=== PATIENT | male | born 1955 | race Hispanic/Latino ===

== ENCOUNTER 2020-12-01 18:51 | Emergency (ER) | payer SELFPAY | END 2020-12-02 01:06 | LOC: ED 18:51 | DX: Z00.00 Encounter for general adult medical examination without abnormal findings (principal); Z53.21 Procedure and treatment not carried out due to patient leaving prior to being seen by health care provider ==

== ENCOUNTER 2020-12-04 10:55 | Inpatient (IN) | payer MEDICARE ==
[~2020-12-04 10:55] MED LIST: ACETAMINOPHEN 500 MG TAB PO SCH; LACTATED RINGERS 1,000 ML IV SCH; MIDAZOLAM 2 MG/2 ML INJ IV NR; SODIUM CHLORIDE 0.9% 1000 ML 1,000 ML IV SCH; ceFAZolin/Water 2 GM/20 ML 2 GM/20 ML SYRINGE IV NR
[2020-12-04 11:49] LABS: Basophils % (Auto) 0.2 % (0.0-1.8); Eosinophils # (Auto) 0.1 K/mm3 (0.0-0.4); Hemoglobin 9.9 gm/dl (11.8-15.2); Lymphocytes # (Auto) 1.5 K/mm3 (1.2-5.4); Lymphocytes % (Auto) 16.8 % (13.4-35.0); Mean Corpuscular HGB Conc 33 % (32-34); Mean Corpuscular Volume 83 fl (84-94); Platelet Count 182 K/mm3 (140-440); Red Blood Count 3.61 M/mm3 (3.65-5.03)
[2020-12-04 12:04] LABS: INR 1.15 (0.87-1.13)
[2020-12-04 12:05] LABS: Partial Thromboplastin Time 26.6 Sec. (24.2-36.6)
[2020-12-04 12:11] LABS: Blood Urea Nitrogen 9 mg/dL (9-20); Calcium 8.5 mg/dL (8.4-10.2); Hemolysis Index 22
[2020-12-04 12:12] LABS: BUN/Creatinine Ratio 23
[2020-12-04] MEDS: GABAPENTIN 300 MG CAP PO NR ×2 (12:15→22:29)
[2020-12-04] MEDS ORDERED: HYDROmorphone 1 MG/1 ML INJ IV ONE (12:26)
[2020-12-04] MEDS ORDERED: HYDROmorphone 1 MG/1 ML INJ ONE ×2 (12:35→15:11)
[2020-12-04] MEDS: MIDAZOLAM 2 MG/2 ML INJ IV NR ×2 (12:42→13:18)
--- NOTE | 2020-12-04 13:01 | Anesthesia Consultation ---
Anesthesia Consult and Med Hx Date of service: 12/04/20 - Airway Anesthetic Teeth Evaluation: Good ROM Head & Neck: Adequate Mental/Hyoid Distance: Adequate Mallampati Class: Class III Intubation Access Assessment: Possibly Difficult - Pulmonary Exam CTA: Yes - Cardiac Exam Cardiac Exam: RRR - Pre-Operative Health Status ASA Pre-Surgery Classification: ASA4 Proposed Anesthetic Plan: General - Pulmonary Hx Smoking: Yes (quit 25yrs but recent restarted <1 pack per week) Hx Respiratory Symptoms: No - Cardiovascular System Hx Hypertension: Yes (prior hx; controlled now no meds) Hx Coronary Artery Disease: Yes (EF 45% on recent TTE) Hx Heart Attack/AMI: Yes (multiple MIs s/p 4v CABG 15yrs ago; most recent OK 09/11/20) Hx Percutaneous Transluminal Coronary Angioplasty (PTCA): Yes (last dose brilinta 11/30/20 PM) Hx Cardia Arrhythmia: No Hx Valvular Heart Disease: No (LV thrombus; last dose coumadin 11/30/20 PM) Hx Peripheral Vascular Disease: Yes (PAD s/p R BKA) - Central Nervous System CVA: No Hx Psychiatric Problems: No - Endocrine Hx Renal Disease: No Hx Liver Disease: No Hx Insulin Dependent Diabetes: No Hx Non-Insulin Dependent Diabetes: No Hx Thyroid Disease: No - Hematic Hx Anemia: Yes - Other Systems Hx Obesity: No - Additional Comments Anesthesia Medical History Comments: No hx anesthetic complications.
[2020-12-04] MEDS ORDERED: ONDANSETRON 4 MG/2 ML INJ IV PRN (13:02)
[2020-12-04] MEDS ORDERED: oxyCODONE /ACETAMINOPHEN 5-325MG TAB PO PRN (13:02)
--- NOTE | 2020-12-04 13:02 | Anesthesia Day of Surgery ---
Anesthesia Day of Surgery - Day of Surgery Patient Examined: Yes Patient H&P Reviewed: Yes Patient is NPO: Yes
[2020-12-04] MEDS ORDERED: LIDOCAINE MPF (2%) 20 MG/1 ML VIAL 5 ML ONE (15:10)
[2020-12-04] MEDS ORDERED: ONDANSETRON 4 MG/2 ML INJ ONE (15:10)
[2020-12-04] MEDS ORDERED: propofoL 200 MG/20 ML VIAL IV ONE (15:11)
[2020-12-04] MEDS ORDERED: ACETAMINOPHEN 325 MG TAB PO PRN (17:19)
--- NOTE | 2020-12-04 17:19 | Operative Report ---
Operative Report Operative Report: Date of Procedure: 12/04/2020 Pre-operative Diagnosis: Nonhealing Right Below-Knee Amputation Post-operative Diagnosis: Same Procedure(s): 1. Excisional Debridement of Skin, Muscle, Bone, and Soft Tissue of Right Below-Knee Amputation (Wound Measured 13 x 10 x 6 cm) 2. Placement of 4 x 4 cm Bio DFence Sentry Placental Tissue Membrane (x2) 3. Wound VAC Placement (Wound Measures 5 x 6 x 2 cm) Surgeon: Augustine Banuelos M.D. Lead Security Officer: None Anesthesia: General Endotracheal Anesthesia EBL: 75 mL Counts: Correct Complications: None Condition: Stable Findings: Remaining tissue was healthy and viable with bleeding edges. All remaining muscle reactive to cautery stimulation. The tibia was exposed however it was covered with the tissue membrane. Specimen: Skin, muscle, bone, and soft tissue were discarded from right below- knee amputation were discarded Indication: The patient is a 65-year-old male with a history of peripheral vascular disease who had previous endovascular intervention to salvage his right lower extremity however this failed requiring a right below-knee amputation. He subsequently developed ischemia of the right below-knee amputation with rest pain and is in need of debridement of the amputation versus conversion to an above-knee amputation. He was given the risk, benefits, and alternative procedures and consented to the procedure. Description of Procedure: The patient was brought to the operating room and laid in supine position. After a timeout was performed general endotracheal anesthesia was achieved and his right leg was prepped and draped in normal sterile fashion. A 10 blade was used to sharply excise around the eschar on the posterior flap and curved Mayos were used to sharply debride necrotic tissue and muscle within the wound. The wound was sharply debrided until all necrotic skin, muscle, and soft tissue had been removed from the wound. The the remaining muscle and soft tissue had no overt signs of infection and had bleeding edges. The remaining muscle was interrogated with cautery and found to be viable. The tibia and extended sli ghtly beyond the skin edge so the oscillating saw was used to transect the bone approximately 2 cm proximal to the skin edge. A rasp was then used to smooth the skin edge. Pulse irrigation was then used to further debride the wound and decrease the bacterial load within the wound. Hemostasis within the wound was then achieved with a combination of manual pressure and cautery. Once hemostasis was achieved the lateral and medial edges of the wound were reapproximated using 2-0 Ethilon in interrupted vertical mattress fashion to reapproximate the skin edges. Once the skin edges were reapproximated there was a remaining defect of approximately 5 x 6 x 2 cm with exposed bone. I placed two 4 cm x 4 cm Bio DFence Sentry Placental Tissue Membrane pieces over the bone to stimulate tissue growth. I then placed a piece of Adaptic over the tissue membrane and then placed a wound VAC over the Adaptic and was able to gain an adequate seal. The patient tolerated the procedure well. All sponge, needle, and instrument counts were correct. The patient was taken to the recovery area in stable condition.
[2020-12-04] MEDS ORDERED: SODIUM CHLORIDE 0.9% IRR 1,500 ML BOTTLE IR ONE (17:25)
[2020-12-04] MEDS: HYDROmorphone 1 MG/1 ML INJ IV PRN ×3 (17:40→22:24)
[2020-12-04] MEDS ORDERED: ceFAZolin/NS 1 GM/50 ML 1 GM/50 ML BAG IV SCH (18:00)
--- NOTE | 2020-12-04 18:08 | Post Anesthesia Evaluation ---
- Post Anesthesia Evaluation Patient Participated: Yes Airway Patent: Yes Stable Respiratory Function: Yes Nausea/Vomiting: No Temp > 96.8F: Yes Pain Manageable: Yes Adequeate Hydration: Yes Anesthesia Complications: No
[2020-12-04] MEDS ORDERED: NON-FORMULARY EACH (Ciprofloxacin Hcl [Ciprofloxacin Hcl] 500 MG Tablet) PO SCH (22:00)
[2020-12-04] MEDS ORDERED: ENOXAPARIN 80 MG/0.8 ML INJ SUB-Q SCH (22:00)
[2020-12-04] MEDS: TICAGRELOR 90 MG TAB PO SCH (22:29)
[2020-12-04] MEDS: GABAPENTIN 300 MG CAP PO SCH (22:29)
[2020-12-05] MEDS: ceFAZolin/NS 1 GM/50 ML 1 GM/50 ML BAG IV SCH ×3 (00:59→16:49)
[2020-12-05 02:57] LABS: Hematocrit 26.7 % (35.5-45.6); Hemoglobin 8.9 gm/dl (11.8-15.2)
[2020-12-05 03:22] LABS: Blood Urea Nitrogen 10 mg/dL (9-20); Hemolysis Index 0
[2020-12-05 03:23] LABS: BUN/Creatinine Ratio 20
[2020-12-05 03:32] LABS: Chol/HDL Ratio 3.7 %
[2020-12-05] MEDS ORDERED: HEPARIN 10,000 UNITS/10 ML VIAL IV PRN (03:46)
--- NOTE | 2020-12-05 04:04 | Consultation ---
History of Present Illness - Reason for Consult Consult date: 12/05/20 Medical Management Requesting physician: SHARONA OMALLEY - History of Present Illness Consult from vascular surgery on patient who is status post right below-knee amputation on October 14, 2020 complicated by a surgical wound infection and now status post incision and drainage and wound VAC placement. Patient has known history of multiple MIs with coronary artery bypass graft and now having some E KG changes on the monitor. Patient however denies any chest pain, no shortness of breath, no nausea vomiting, no abdominal pain. Denies any headache or dizziness no diaphoresis. He however indicates that he had some 'heartburn' earlier which has since subsided. A 12-lead EKG done earlier in the day shows sinus rhythm with right bundle branch block and probable anterolateral infarct. No old EKGs to compare with. Stat troponin was done was 0.656. Findings were communicated to the on-call cement rubber Dr. Sapp and recommendation was to commence patient on heparin drip if agreeable with the vascular surgeons. Patient resting comfortably in bed and indicates he has not had any chest pain. Past History Past Medical History: acute [place] (X7), hyperlipidemia Past Surgical History: CABG, hernia repair Social history: no significant social history Family history: no significant family history Medications and Allergies Allergies Allergy/AdvReac Type Severity Reaction Status Date / Time procaine [From Novocain] Allergy Blacks out Verified 12/03/20 15:52 Home Medications Medication Instructions Recorded Confirmed Last Taken Type Aspirin [Adult Aspirin] 81 mg PO DAILY 12/03/20 12/04/20 11/30/20 History AtorvaSTATin [Lipitor] 40 mg PO QHS 12/03/20 12/04/20 12/03/20 History Ciprofloxacin HCl 1 tab PO BID 12/03/20 12/04/20 12/04/20 08:00 History Ticagrelor [Brilinta] 90 mg PO BID 12/03/20 12/04/20 12/03/20 History Warfarin [Coumadin] 5 mg PO QDAY 12/03/20 12/04/20 11/30/20 History Gabapentin 300 mg PO TID 12/04/20 12/04/20 12/03/20 History HYDROcodone/APAP 10-325 [[place] 1 each PO Q6HR PRN 12/04/20 12/04/20 12/04/20 08:00 History 10/325] methOCARBAMOL [Robaxin TAB] 750 mg PO BID 12/04/20 12/04/20 12/03/20 History Active Meds: Active Medications Acetaminophen (Acetaminophen 500 Mg Tab) 1,000 mg PO PREOP [facility] Last Admin: 12/04/20 12:15 Dose: 1,000 mg Documented by: Acetaminophen (Acetaminophen 325 Mg Tab) 650 mg PO Q4H PRN PRN Reason: Pain MILD(1-3)/Fever >100.5/HAND Aspirin (Aspirin Ec 81 Mg Tab) 81 mg PO DAILY [facility] Atorvastatin Calcium (Atorvastatin 40 Mg Tab) 40 mg PO QHS [facility] Last Admin: 12/04/20 22:29 Dose: 40 mg Documented by: Enoxaparin Sodium (Enoxaparin 80 Mg/0.8 Ml Inj) 70 mg SUB-Q Q12HR [facility]; Protocol Gabapentin (Gabapentin 300 Mg Cap) 300 mg PO TID [facility] Last Admin: 12/04/20 22:29 Dose: 300 mg Documented by: Hydromorphone HCl (Hydromorphone 1 Mg/1 Ml Inj) 0.5 mg IV Q10MIN PRN PRN Reason: Pain , Severe (7-10) Last Admin: 12/04/20 17:50 Dose: 0.5 mg Documented by: Hydromorphone HCl (Hydromorphone 1 Mg/1 Ml Inj) 0.5 mg IV Q3H PRN PRN Reason: Pain , Severe (7-10) Last Admin: 12/04/20 22:24 Dose: 0.5 mg Documented by: Cefazolin Sodium (Ancef/Ns 1 Gm/50 Ml) 1 gm in 50 mls @ 100 mls/hr IV 0000,0800,1600 [facility] Stop: 12/05/20 16:29 Last Admin: 12/05/20 00:59 Dose: 100 mls/hr Documented by: Heparin Sodium/Sodium Chloride (Heparin/ 0.45% Nacl-25,000 Unit/500 Ml) 25,000 unit in 500 mls @ 21.75 mls/hr IV TITR [facility]; Protocol Levofloxacin (Levofloxacin 500 Mg Tab) 500 mg PO Q24HR [facility] Methocarbamol (Methocarbamol 750 Mg Tab) 750 mg PO BID [facility] Last Admin: 12/04/20 22:29 Dose: 750 mg Documented by: Ondansetron HCl (Ondansetron 4 Mg/2 Ml Inj) 4 mg IV ONCE PRN PRN Reason: Nausea And Vomiting Oxycodone/Acetaminophen (Oxycodone /Acetaminophen 5-325mg Tab) 1 tab PO ONCE PRN PRN Reason: Pain, Moderate (4-6) Pantoprazole Sodium (Pantoprazole 40 Mg Tab) 40 mg PO QDAC [facility] Ticagrelor (Ticagrelor 90 Mg Tab) 90 mg PO BID [facility] Last Admin: 12/04/20 22:29 Dose: 90 mg Documented by: Warfarin Sodium (Warfarin 5 Mg Tab) 5 mg PO DAILY@1700 [facility]; Protocol Review of Systems Constitutional: no fever, no chills Ears, nose, mouth and throat: no nasal congestion, no sore throat Cardiovascular: no chest pain, no palpitations Respiratory: no cough, no shortness of breath Gastrointestinal: heartburn, no abdominal pain, no nausea, no vomiting, no diarrhea Genitourinary Male: no dysuria, no hematuria, no flank pain, no nocturia Musculoskeletal: no neck pain, no low back pain Integumentary: no rash, no pruritis Neurological: no headaches, no confusion Psychiatric: no anxiety, no depression Endocrine: no polyphagia, no polydipsia, no polyuria, no nocturia Hematologic/Lymphatic: no easy bruising, no easy bleeding Allergic/Immunologic: no urticaria, no wheezing Exam - Constitutional Vitals: Temp Pulse Resp BP Pulse Ox 100.0 F H 82 14 104/65 97 12/04/20 23:18 12/04/20 23:18 12/04/20 23:18 12/04/20 23:18 12/04/20 23:18 General appearance: Present: no acute distress, well-nourished - EENT Eyes: Present: PERRL, EOM intact. Absent: scleral icterus ENT: hearing intact, clear oral mucosa, dentition normal - Neck Neck: Present: supple, normal ROM - Respiratory Respiratory effort: normal Respiratory: bilateral: CTA - Cardiovascular Rhythm: regular Heart Sounds: Present: S1 & S2. Absent: gallop, systolic murmur, diastolic murmur, rub, click - Extremities Extremities: no ischemia, pulses intact, pulses symmetrical, No edema, normal temperature, normal color, Full ROM Extremity abnormal: other (Right below knee amputation with wound VAC in place) Peripheral Pulses: within normal limits - Abdominal General gastrointestinal: Present: soft, non-tender, non-distended, normal bowel sounds. Absent: mass - Integumentary Integumentary: Present: clear, warm, dry. Absent: rash - Musculoskeletal Musculoskeletal: strength equal bilaterally - Psychiatric Psychiatric: appropriate mood/affect, intact judgment & insight, memory intact, cooperative - Neurologic Neurologic: CNII-XII intact, no focal deficits, moves all extremities HEART Score - HEART Score Troponin: Troponin T 0.656 ng/mL (0.00-0.029) H* 12/05/20 02:43 Results - Labs CBC & Chem 7: 12/05/20 05:07 12/05/20 02:43 Labs: Abnormal lab results 12/04/20 12/04/20 12/04/20 Range/Units 11:20 11:20 11:20 RBC 3.61 L (3.65-5.03) M/mm3 Hgb 9.9 L (11.8-15.2) gm/dl Hct 30.0 L (35.5-45.6) % MCV 83 L (84-94) fl MCH 27 L (28-32) pg RDW 18.0 H (13.2-15.2) % [place] % (Auto) 11.0 H (0.0-7.3) % [place] # (Auto) 1.0 H (0.0-0.8) K/mm3 Seg Neutrophils % 71.0 H (40.0-70.0) % PT 15.2 H (12.2-14.9) Sec. INR 1.15 H (0.87-1.13) Sodium 133 L (137-145) mmol/L Creatinine 0.4 L (0.8-1.3) mg/dL Glucose 145 H (75-100) mg/dL Calcium (8.4-10.2) mg/dL Troponin T (0.00-0.029) ng/mL HDL Cholesterol (40-59) mg/dL 12/05/20 12/05/20 12/05/20 Range/Units 02:43 02:43 02:43 RBC (3.65-5.03) M/mm3 Hgb 8.9 L (11.8-15.2) gm/dl Hct 26.7 L (35.5-45.6) % MCV (84-94) fl MCH (28-32) pg RDW (13.2-15.2) % [place] % (Auto) (0.0-7.3) % [place] # (Auto) (0.0-0.8) K/mm3 Seg Neutrophils % (40.0-70.0) % PT (12.2-14.9) Sec. INR (0.87-1.13) Sodium 133 L (137-145) mmol/L Creatinine 0.5 L (0.8-1.3) mg/dL Glucose 138 H (75-100) mg/dL Calcium 8.0 L (8.4-10.2) mg/dL Troponin T 0.656 H* (0.00-0.029) ng/mL HDL Cholesterol 27 L (40-59) mg/dL Assessment and Plan - Patient Problems (1) Elevated troponin Current Visit: Yes Status: Acute Plan to address problem: Patient has known history of coronary artery disease. We will check serial cardiac enzymes. Patient currently on heparin drip. Patient on daily aspirin. Patient denies any chest pain at this time. Will await further recommendations from cardiology. (2) Abnormal EKG Current Visit: Yes Status: Acute Plan to address problem: Old EKG unavailable. EKG concerning for probable anterolateral infarct. We will monitor patient closely on telemetry. Will await further evaluation and recommendations from cardiology. (3) Status post below knee amputation of right lower extremity Current Visit: Yes Status: Acute Plan to address problem: Patient had a BKA on October 14, 2020. BKA was complicated by an infected wound. Patient had an incision and drainage with wound VAC placement on December 04, 2020 (4) DVT prophylaxis Current Visit: Yes Status: Acute Plan to address problem: Patient currently on anticoagulation with heparin. (5) Full code status Current Visit: Yes Status: Acute Plan to address problem: Patient is full code.
[2020-12-05] MEDS: HEPARIN/ 0.45% NACL DRIP 25,000 UNIT/500 ML BAG IV SCH ×2 (05:19→12:56)
[2020-12-05 05:28] LABS: Hematocrit 26.2 % (35.5-45.6); Hemoglobin 8.7 gm/dl (11.8-15.2)
[2020-12-05 05:34] LABS: INR 1.16 (0.87-1.13)
[2020-12-05 05:35] LABS: Partial Thromboplastin Time 27.3 Sec. (24.2-36.6)
[2020-12-05] MEDS: PANTOPRAZOLE 40 MG TAB PO SCH (08:26)
[2020-12-05] MEDS: GABAPENTIN 300 MG CAP PO SCH ×3 (08:27→21:53)
[2020-12-05] MEDS: ASPIRIN EC 81 MG TAB PO SCH (09:07)
[2020-12-05] MEDS: levoFLOXacin 500 MG TAB PO SCH (09:07)
--- NOTE | 2020-12-05 10:47 | Consultation ---
Past History Past Medical History: acute [place] (X7), hyperlipidemia Past Surgical History: CABG, hernia repair Social history: no significant social history Family history: no significant family history Medications and Allergies Allergies Allergy/AdvReac Type Severity Reaction Status Date / Time procaine [From Novocain] Allergy Blacks out Verified 12/03/20 15:52 Home Medications Medication Instructions Recorded Confirmed Last Taken Type Aspirin [Adult Aspirin] 81 mg PO DAILY 12/03/20 12/04/20 11/30/20 History AtorvaSTATin [Lipitor] 40 mg PO QHS 12/03/20 12/04/20 12/03/20 History Ciprofloxacin HCl 1 tab PO BID 12/03/20 12/04/20 12/04/20 08:00 History Ticagrelor [Brilinta] 90 mg PO BID 12/03/20 12/04/20 12/03/20 History Warfarin [Coumadin] 5 mg PO QDAY 12/03/20 12/04/20 11/30/20 History Gabapentin 300 mg PO TID 12/04/20 12/04/20 12/03/20 History HYDROcodone/APAP 10-325 [[place] 1 each PO Q6HR PRN 12/04/20 12/04/20 12/04/20 08:00 History 10/325] methOCARBAMOL [Robaxin TAB] 750 mg PO BID 12/04/20 12/04/20 12/03/20 History Active Meds: Active Medications Acetaminophen (Acetaminophen 500 Mg Tab) 1,000 mg PO PREOP [facility] Last Admin: 12/04/20 12:15 Dose: 1,000 mg Documented by: Acetaminophen (Acetaminophen 325 Mg Tab) 650 mg PO Q4H PRN PRN Reason: Pain MILD(1-3)/Fever >100.5/HAND Aspirin (Aspirin Ec 81 Mg Tab) 81 mg PO DAILY [facility] Last Admin: 12/05/20 09:07 Dose: 81 mg Documented by: Atorvastatin Calcium (Atorvastatin 40 Mg Tab) 40 mg PO QHS [facility] Last Admin: 12/04/20 22:29 Dose: 40 mg Documented by: Gabapentin (Gabapentin 300 Mg Cap) 300 mg PO TID [facility] Last Admin: 12/05/20 08:27 Dose: 300 mg Documented by: Hydromorphone HCl (Hydromorphone 1 Mg/1 Ml Inj) 0.5 mg IV Q10MIN PRN PRN Reason: Pain , Severe (7-10) Last Admin: 12/04/20 17:50 Dose: 0.5 mg Documented by: Hydromorphone HCl (Hydromorphone 1 Mg/1 Ml Inj) 0.5 mg IV Q3H PRN PRN Reason: Pain , Severe (7-10) Last Admin: 12/04/20 22:24 Dose: 0.5 mg Documented by: Cefazolin Sodium (Ancef/Ns 1 Gm/50 Ml) 1 gm in 50 mls @ 100 mls/hr IV 0000,08 00,1600 [facility] Stop: 12/05/20 16:29 Last Admin: 12/05/20 08:26 Dose: 100 mls/hr Documented by: Heparin Sodium/Sodium Chloride (Heparin/ 0.45% Nacl-25,000 Unit/500 Ml) 25,000 unit in 500 mls @ 21 mls/hr IV TITR [facility]; Protocol Last Admin: 12/05/20 05:19 Dose: 1,050 units/hr, 21 mls/hr Documented by: Levofloxacin (Levofloxacin 500 Mg Tab) 500 mg PO Q24HR [facility] Last Admin: 12/05/20 09:07 Dose: 500 mg Documented by: Methocarbamol (Methocarbamol 750 Mg Tab) 750 mg PO BID [facility] Last Admin: 12/05/20 09:07 Dose: 750 mg Documented by: Ondansetron HCl (Ondansetron 4 Mg/2 Ml Inj) 4 mg IV ONCE PRN PRN Reason: Nausea And Vomiting Oxycodone/Acetaminophen (Oxycodone /Acetaminophen 5-325mg Tab) 1 tab PO ONCE PRN PRN Reason: Pain, Moderate (4-6) Pantoprazole Sodium (Pantoprazole 40 Mg Tab) 40 mg PO QDAC [facility] Last Admin: 12/05/20 08:26 Dose: 40 mg Documented by: Ticagrelor (Ticagrelor 90 Mg Tab) 90 mg PO BID [facility] Last Admin: 12/04/20 22:29 Dose: 90 mg Documented by: Physical Examination Vital Signs Temp Pulse Resp BP Pulse Ox 98.1 F 71 18 118/72 96 12/04/20 11:00 12/04/20 11:00 12/04/20 11:00 12/04/20 11:00 12/04/20 11:00 Results 12/05/20 05:07 12/05/20 02:43 Coagulation 12/04/20 12/05/20 Range/Units 11:20 05:07 PT 15.2 H 15.3 H (12.2-14.9) Sec. INR 1.15 H 1.16 H (0.87-1.13) APTT 26.6 27.3 (24.2-36.6) Sec. Lipids 12/05/20 Range/Units 02:43 Triglycerides 98 (2-149) mg/dL Cholesterol 100 (50-199) mg/dL HDL Cholesterol 27 L (40-59) mg/dL Cholesterol/HDL Ratio 3.70 % CBC 12/04/20 12/05/20 12/05/20 Range/Units 11:20 02:43 05:07 WBC 8.7 (4.5-11.0) K/mm3 RBC 3.61 L (3.65-5.03) M/mm3 Hgb 9.9 L 8.9 L 8.7 L (11.8-15.2) gm/dl Hct 30.0 L 26.7 L 26.2 L (35.5-45.6) % Plt Count 182 137 L (140-440) K/mm3 Lymph # (Auto) 1.5 (1.2-5.4) K/mm3 [place] # (Auto) 1.0 H (0.0-0.8) K/mm3 Eos # (Auto) 0.1 (0.0-0.4) K/mm3 Baso # (Auto) 0.0 (0.0-0.1) K/mm3 Comprehensive Metabolic Panel 12/04/20 12/05/20 Range/Units 11:20 02:43 Sodium 133 L 133 L (137-145) mmol/L Potassium 4.1 3.9 (3.6-5.0) mmol/L Chloride 98.8 99.6 (98-107) mmol/L Carbon Dioxide 28 29 (22-30) mmol/L BUN 9 10 (9-20) mg/dL Creatinine 0.4 L 0.5 L (0.8-1.3) mg/dL Glucose 145 H 138 H (75-100) mg/dL Calcium 8.5 8.0 L (8.4-10.2) mg/dL Assessment and Plan Full consult dictated. Discussed with Dr. Banuelos and Dr. Cowan.
--- NOTE | 2020-12-05 11:09 | Consultation ---
DATE OF CONSULTATION: 12/05/2020 CARDIOLOGY CONSULTATION REFERRING PHYSICIAN: Hospitalist josh and Dr. Augustine Banuelos. REASON FOR CONSULTATION: Advice and opinion regarding abnormal EKG and troponin. HISTORY OF PRESENT ILLNESS: The patient is a pleasant 65-year-old gentleman, who has an extensive cardiac history which includes previous bypass surgery, hypercholesterolemia, extensive peripheral arterial disease, status post recent BKA, active tobacco use, hypertension, hyperlipidemia, multiple PCIs, multiple MIs, presents here for elective outpatient right stump I and D by Dr. Banuelos. Surgery was uncomplicated. The patient was sleeping at 3:00 a.m. on the conveyor monitor. personnel monitor was noted to be abnormal. The patient recently got an EKG, which was abnormal with right bundle branch block, anterolateral infarct with Q-waves. This is entirely unchanged from prior EKG performed at 8:00 p.m. postop. The patient having no chest pain. Code STEMI was canceled at that time. PAST SURGICAL HISTORY: History of CABG, hernia repair. SOCIAL HISTORY: Active tobacco use. FAMILY HISTORY: Strong family history of premature heart disease. ALLERGIES: ALLERGIC TO PROCAINE. MEDICATIONS: Inpatient and outpatient medications reviewed. The patient again is chest pain free, lying in bed, is conversant, very pleasant, has had no symptoms. Thirty minutes of critical care time were spent at 3:00 a.m. at the time of the "code STEMI." PHYSICAL EXAMINATION: VITAL SIGNS: At this point, he has sinus rhythm in the 70s and 80s. Blood pressure is 120/60s, afebrile, O2 sats 98% on room air, respiratory rate is 12. GENERAL: This is an elderly gentleman, appears comfortable, in no apparent distress, oriented x 3. HEENT: Sclerae anicteric. PERRL. NECK: Supple, no masses, no JVD. CHEST: Decreased breath sounds, bibasilar. Overall, moderate air movement. CARDIAC: Regular rate, regular rhythm, S1, S2. ABDOMEN: Soft, nontender, nondistended. Normoactive bowel sounds in all 4 quadrants. No mass or bruits. EXTREMITIES: Right stump is in a wound VAC. 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 The patient was then started on Coumadin. The patient does not remember the last time he had an ischemic evaluation. LABORATORY DATA: Troponin was 0.6 and then 0.8 later this morning. Hemoglobin is 8.7, hematocrit 26.2, platelets 137. INR is 1.16. Sodium is 133, EKG is aforementioned. ASSESSMENT: In summary, the patient is a 65-year-old gentleman who underwent elective right stump incision and drainage, asymptomatic postop, was noted to have abnormal troponin. The patient with extensive cardiac history. EKG reveals prior lateral infarct, unchanged from prior and again the patient is chest pain free. At this point, we will continue IV heparin, discontinue Coumadin, continue aspirin and Brilinta. Discussed with Dr. Banuelos and Dr. Diop of the hospitalist service. He remains asymptomatic. We will need to watch his anemia, consider left heart catheterization on Monday. Long discussion with the patient as well. He is clinically very stable at this point. Thank you for this consultation. We will be happy to follow along with you. TID: [id number] RECEIPT: [id number] LATESHA/CHRISTIANO
--- NOTE | 2020-12-05 14:50 | Electrocardiograph Report ---
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
--- NOTE | 2020-12-05 16:03 | Progress Note ---
Assessment and Plan 65-year-old male with right below-knee amputation after complications from endovascular therapy performed by Dr. Holland with attempt by for salavage with resultant BKA. Patient has now sought our care and is now status post debridement of the right below-knee amputation with graft material implanted and wound VAC placed. Postoperatively, patient appears to have suffered an NSTEMI due to underlying cardiac issues. Cardiology notified and plan for catheterization on Monday. Patient will also need approval for wound VAC. Patient informed of the plan. Subjective Date of service: 12/05/20 Principal diagnosis: debridement Interval history: Overnight, patient had telemetry changes on EKG changes and cardiology was consulted and concluded patient had NSTEMI based on troponin elevation. No significant change on EKG per cardiology. Plan for cardiac catheterization on Monday. Patient is currently without chest pain. Only had mild chest pain last night, which has since resolved. His right below-knee amputation stump feels better after debridement. Continue wound care. Objective - Constitutional Vitals: Vital Signs - 12hr 12/05/20 12/05/20 12/05/20 04:42 07:46 12:09 Temperature 98.2 F 98.0 F Pulse Rate 70 68 Respiratory 18 18 Rate Respiratory 20 Rate [Right Lower] Blood Pressure 115/66 115/73 O2 Sat by Pulse 98 98 98 Oximetry General appearance: Present: no acute distress - EENT Eyes: EOM intact ENT: hearing intact - Respiratory Respiratory effort: normal Extremities: abnormal (Right below-knee amputation site with wound VAC without alarms) Extremity abnormal: other (Nonpalpable left pedal pulses) - Gastrointestinal General gastrointestinal: Present: soft, non-tender - Psychiatric Psychiatric: appropriate mood/affect, cooperative - Labs CBC & Chem 7: 12/05/20 05:07 12/05/20 02:43 Labs: Abnormal lab results 12/05/20 12/05/20 12/05/20 Range/Units 02:43 02:43 02:43 Hgb 8.9 L (11.8-15.2) gm/dl Hct 26.7 L (35.5-45.6) % Plt Count (140-440) K/mm3 PT (12.2-14.9) Sec. INR (0.87-1.13) Heparin Anti-Xa Level (0.3-0.7) U.I./ml Sodium 133 L (137-145) mmol/L Creatinine 0.5 L (0.8-1.3) mg/dL Glucose 138 H (75-100) mg/dL Calcium 8.0 L (8.4-10.2) mg/dL Troponin T 0.656 H* (0.00-0.029) ng/mL HDL Cholesterol 27 L (40-59) mg/dL 12/05/20 12/05/20 12/05/20 Range/Units 05:07 05:07 05:07 Hgb 8.7 L (11.8-15.2) gm/dl Hct 26.2 L (35.5-45.6) % Plt Count 137 L (140-440) K/mm3 PT 15.3 H (12.2-14.9) Sec. INR 1.16 H (0.87-1.13) Heparin Anti-Xa Level (0.3-0.7) U.I./ml Sodium (137-145) mmol/L Creatinine (0.8-1.3) mg/dL Glucose (75-100) mg/dL Calcium (8.4-10.2) mg/dL Troponin T 0.832 H* D (0.00-0.029) ng/mL HDL Cholesterol (40-59) mg/dL 12/05/20 12/05/20 Range/Units 10:42 10:42 Hgb (11.8-15.2) gm/dl Hct (35.5-45.6) % Plt Count (140-440) K/mm3 PT (12.2-14.9) Sec. INR (0.87-1.13) Heparin Anti-Xa Level 0.17 L (0.3-0.7) U.I./ml Sodium (137-145) mmol/L Creatinine (0.8-1.3) mg/dL Glucose (75-100) mg/dL Calcium (8.4-10.2) mg/dL Troponin T 1.030 H* D (0.00-0.029) ng/mL HDL Cholesterol (40-59) mg/dL Medications & Allergies - Medications Allergies/Adverse Reactions: Allergies procaine [From Novocain] Allergy (Verified 12/03/20 15:52) Blacks out Home Medications: Home Medications Medication Instructions Recorded Confirmed Last Taken Type Aspirin [Adult Aspirin] 81 mg PO DAILY 12/03/20 12/04/20 11/30/20 History AtorvaSTATin [Lipitor] 40 mg PO QHS 12/03/20 12/04/20 12/03/20 History Ciprofloxacin HCl 1 tab PO BID 12/03/20 12/04/20 12/04/20 08:00 History Ticagrelor [Brilinta] 90 mg PO BID 12/03/20 12/04/20 12/03/20 History Warfarin [Coumadin] 5 mg PO QDAY 12/03/20 12/04/20 11/30/20 History Gabapentin 300 mg PO TID 12/04/20 12/04/20 12/03/20 History HYDROcodone/APAP 10-325 [[place] 1 each PO Q6HR PRN 12/04/20 12/04/20 12/04/20 08:00 History 10/325] methOCARBAMOL [Robaxin TAB] 750 mg PO BID 12/04/20 12/04/20 12/03/20 History Active Medications: Generic Name Dose Route Start Last Admin Trade Name Freq PRN Reason Stop Dose Admin Acetaminophen 1,000 mg 12/04/20 06:00 12/04/20 12:15 Acetaminophen 500 Mg Tab PO 1,000 mg PREOP SUSU Administration Acetaminophen 650 mg 12/04/20 17:19 Acetaminophen 325 Mg Tab PO Q4H PRN Pain MILD(1-3)/Fever >100.5/HAND Aspirin 81 mg 12/05/20 10:00 12/05/20 09:07 Aspirin Ec 81 Mg Tab PO 81 mg DAILY SUSU Administration Atorvastatin Calcium 40 mg 12/04/20 22:00 12/04/20 22:29 Atorvastatin 40 Mg Tab PO 40 mg QHS SUSU Administration Gabapentin 300 mg 12/04/20 20:00 12/05/20 13:37 Gabapentin 300 Mg Cap PO 300 mg TID SUSU Administration Hydromorphone HCl 0.5 mg 12/04/20 13:02 12/04/20 17:50 Hydromorphone 1 Mg/1 Ml Inj IV 0.5 mg Q10MIN PRN Administration Pain , Severe (7-10) Hydromorphone HCl 0.5 mg 12/04/20 17:19 12/04/20 22:24 Hydromorphone 1 Mg/1 Ml Inj IV 0.5 mg Q3H PRN Administration Pain , Severe (7-10) Cefazolin Sodium 1 gm in 50 mls @ 100 mls/hr 12/05/20 00:00 12/05/20 08:26 Ancef/Ns 1 Gm/50 Ml IV 12/05/20 16:29 100 mls/hr 0000,0800,1600 SUSU Administration Heparin Sodium/Sodium Chloride 25,000 unit in 500 mls @ 21 mls/hr 12/05/20 04:00 12/05/20 12:56 Heparin/ 0.45% Nacl-25,000 Unit/500 Ml IV 1,100 units/hr TITR SUSU 22 mls/hr Administration Protocol 1,050 UNITS/HR Levofloxacin 500 mg 12/05/20 10:00 12/05/20 09:07 Levofloxacin 500 Mg Tab PO 500 mg Q24HR SUSU Administration Methocarbamol 750 mg 12/04/20 22:00 12/05/20 09:07 Methocarbamol 750 Mg Tab PO 750 mg BID SUSU Administration Ondansetron HCl 4 mg 12/04/20 13:02 Ondansetron 4 Mg/2 Ml Inj IV ONCE PRN Nausea And Vomiting Pantoprazole Sodium 40 mg 12/05/20 07:30 12/05/20 08:26 Pantoprazole 40 Mg Tab PO 40 mg QDAC SUSU Administration Ticagrelor 90 mg 12/04/20 22:00 12/04/20 22:29 Ticagrelor 90 Mg Tab PO 90 mg BID SUSU Administration HEART Score - HEART Score Troponin: Troponin T 1.030 ng/mL (0.00-0.029) H* D 12/05/20 10:42
[2020-12-05] MEDS ORDERED: WARFARIN 5 MG TAB PO SCH (17:00)
[2020-12-05 19:11] LABS: INR 1.19 (0.87-1.13)
[2020-12-05] MEDS ORDERED: ONDANSETRON 4 MG/2 ML INJ IV PRN (23:06)
[2020-12-06] MEDS: HYDROmorphone 1 MG/1 ML INJ IV PRN ×4 (00:04→22:29)
[2020-12-06] MEDS: HEPARIN/ 0.45% NACL DRIP 25,000 UNIT/500 ML BAG IV SCH (02:24)
--- NOTE | 2020-12-06 08:02 | Progress Note ---
Assessment and Plan Assessment and plan: #Elevated troponin -Plan for cardiac cath tomorrow -Management per cardiology #History of coronary artery disease -Continue medical therapy #Right BKA amputation wound -Status post I&D on 12/04 -Management per vascular surgery -Wound VAC at discharge -As needed pain control Thank you for your consultation. Total Time Spent with Patient (Minutes): 20 minutes History Interval history: No acute events overnight. Patient reports pain is not controlled with current pain meds. Hospitalist Physical - Physical exam Narrative exam: GENERAL: Well-developed well-nourished. Sitting up in bed in no acute distress. CHEST/LUNGS: CTAB. HEART/CARDIOVASCULAR: RRR. No murmur, rubs or gallops appreciated. ABDOMEN: +BS. NT/ND. NEURO: No focal motor deficit. Follows all commands. MUSCULOSKELETAL: RLE BKA with wound VAC. EXTREMITIES: No cyanosis, clubbing or edema. PSYCH: Cooperative. - Constitutional Vitals: Temp Pulse Resp BP Pulse Ox 98.5 F 55 L 19 109/64 97 12/06/20 03:41 12/06/20 04:00 12/06/20 04:12 12/06/20 03:41 12/06/20 03:41 General appearance: Present: no acute distress HEART Score - HEART Score Troponin: Troponin T 1.030 ng/mL (0.00-0.029) H* D 12/05/20 10:42 Results - Labs CBC & Chem 7: 12/06/20 14:02 12/06/20 14:02 Labs: Laboratory Last Values WBC 8.7 K/mm3 (4.5-11.0) 12/04/20 11:20 RBC 3.61 M/mm3 (3.65-5.03) L 12/04/20 11:20 Hgb 8.7 gm/dl (11.8-15.2) L 12/05/20 05:07 Hct 26.2 % (35.5-45.6) L 12/05/20 05:07 MCV 83 fl (84-94) L 12/04/20 11:20 MCH 27 pg (28-32) L 12/04/20 11:20 MCHC 33 % (32-34) 12/04/20 11:20 RDW 18.0 % (13.2-15.2) H 12/04/20 11:20 Plt Count 137 K/mm3 (140-440) L 12/05/20 05:07 Lymph % (Auto) 16.8 % (13.4-35.0) 12/04/20 11:20 [place] % (Auto) 11.0 % (0.0-7.3) H 12/04/20 11:20 Eos % (Auto) 1.0 % (0.0-4.3) 12/04/20 11:20 Baso % (Auto) 0.2 % (0.0-1.8) 12/04/20 11:20 Lymph # (Auto) 1.5 K/mm3 (1.2-5.4) 12/04/20 11:20 [place] # (Auto) 1.0 K/mm3 (0.0-0.8) H 12/04/20 11:20 Eos # (Auto) 0.1 K/mm3 (0.0-0.4) 12/04/20 11:20 Baso # (Auto) 0.0 K/mm3 (0.0-0.1) 12/04/20 11:20 Seg Neutrophils % 71.0 % (40.0-70.0) H 12/04/20 11:20 Seg Neutrophils # 6.2 K/mm3 (1.8-7.7) 12/04/20 11:20 PT 15.6 Sec. (12.2-14.9) H 12/05/20 17:55 INR 1.19 (0.87-1.13) H 12/05/20 17:55 APTT 27.3 Sec. (24.2-36.6) 12/05/20 05:07 Heparin Anti-Xa Level 0.23 U.I./ml (0.3-0.7) L 12/06/20 02:30 Sodium 133 mmol/L (137-145) L 12/05/20 02:43 Potassium 3.9 mmol/L (3.6-5.0) 12/05/20 02:43 Chloride 99.6 mmol/L (98-107) 12/05/20 02:43 Carbon Dioxide 29 mmol/L (22-30) 12/05/20 02:43 Anion Gap 8 mmol/L 12/05/20 02:43 BUN 10 mg/dL (9-20) 12/05/20 02:43 Creatinine 0.5 mg/dL (0.8-1.3) L 12/05/20 02:43 Estimated GFR > 60 ml/min 12/05/20 02:43 BUN/Creatinine Ratio 20 % 12/05/20 02:43 Glucose 138 mg/dL (75-100) H 12/05/20 02:43 Calcium 8.0 mg/dL (8.4-10.2) L 12/05/20 02:43 Troponin T 1.030 ng/mL (0.00-0.029) H* D 12/05/20 10:42 Triglycerides 98 mg/dL (2-149) 12/05/20 02:43 Cholesterol 100 mg/dL (50-199) 12/05/20 02:43 LDL Cholesterol Direct 54 mg/dL (50-130) 12/05/20 02:43 HDL Cholesterol 27 mg/dL (40-59) L 12/05/20 02:43 Cholesterol/HDL Ratio 3.70 % 12/05/20 02:43 Blood Type O POSITIVE 12/04/20 12:20 Antibody Screen Negative 12/04/20 12:20 [place]/IV: Voiding Method Urinal Active Medications - Current Medications Current Medications: Generic Name Dose Route Start Last Admin Trade Name Freq PRN Reason Stop Dose Admin Acetaminophen 1,000 mg 12/04/20 06:00 12/04/20 12:15 Acetaminophen 500 Mg Tab PO 1,000 mg PREOP SUSU Administration Acetaminophen 650 mg 12/04/20 17:19 12/05/20 17:28 Acetaminophen 325 Mg Tab PO 650 mg Q4H PRN Administration Pain MILD(1-3)/Fever >100.5/HAND Aspirin 81 mg 12/05/20 10:00 12/05/20 09:07 Aspirin Ec 81 Mg Tab PO 81 mg DAILY SUSU Administration Atorvastatin Calcium 40 mg 12/04/20 22:00 12/05/20 21:53 Atorvastatin 40 Mg Tab PO 40 mg QHS SUSU Administration Gabapentin 300 mg 12/04/20 20:00 12/05/20 21:53 Gabapentin 300 Mg Cap PO 300 mg TID SUSU Administration Hydromorphone HCl 0.5 mg 12/04/20 13:02 12/04/20 17:50 Hydromorphone 1 Mg/1 Ml Inj IV 0.5 mg Q10MIN PRN Administration Pain , Severe (7-10) Hydromorphone HCl 0.5 mg 12/04/20 17:19 12/06/20 03:24 Hydromorphone 1 Mg/1 Ml Inj IV 0.5 mg Q3H PRN Administration Pain , Severe (7-10) Heparin Sodium/Sodium Chloride 25,000 unit in 500 mls @ 21 mls/hr 12/05/20 04:00 12/06/20 02:24 Heparin/ 0.45% Nacl-25,000 Unit/500 Ml IV 1,200 units/hr TITR SUSU 24 mls/hr Administration Protocol 1,050 UNITS/HR Levofloxacin 500 mg 12/05/20 10:00 12/05/20 09:07 Levofloxacin 500 Mg Tab PO 500 mg Q24HR SUSU Administration Methocarbamol 750 mg 12/04/20 22:00 12/05/20 21:53 Methocarbamol 750 Mg Tab PO 750 mg BID SUSU Administration Ondansetron HCl 4 mg 12/05/20 23:06 Ondansetron 4 Mg/2 Ml Inj IV Q4H PRN Nausea And Vomiting Pantoprazole Sodium 40 mg 12/05/20 07:30 12/05/20 08:26 Pantoprazole 40 Mg Tab PO 40 mg QDAC SUSU Administration Ticagrelor 90 mg 12/04/20 22:00 12/04/20 22:29 Ticagrelor 90 Mg Tab PO 90 mg BID SUSU Administration Nutrition/Malnutrition Assess - Dietary Evaluation Nutrition/Malnutrition Findings: Nutrition Notes Start: 12/05/20 11:35 Freq: Status: Active Protocol: Document 12/05/20 11:36 SG (Rec: 12/05/20 11:41 SG [id number]) Nutrition Notes Need for Assessment generated from: Education Initial or Follow up Brief Note Other Pertinent Diagnosis BKA Current Diet cardiac Labs/Tests reviewed Pertinent Medications Warfarin Height 5 ft 11 in Weight 72.4 kg [place] Body Weight (kg) 78.18 BMI 22.2 Weight Status Appropriate Subjective/Other Information Pt sceened for coumadin education. Recent BKA. Nutrition Intervention Teaching Recipient Patient Learning Readiness Good Teaching Methods Discussion Response to Teaching Verbalize understanding Education Handouts Provided Vitamin K and medications Barriers to Learning No Barriers RD phone number provided Yes Patient aware of follow up options Yes
[2020-12-06] MEDS: PANTOPRAZOLE 40 MG TAB PO SCH (08:57)
[2020-12-06] MEDS: GABAPENTIN 300 MG CAP PO SCH ×3 (08:57→21:17)
[2020-12-06] MEDS: levoFLOXacin 500 MG TAB PO SCH (09:03)
[2020-12-06] MEDS: ASPIRIN EC 81 MG TAB PO SCH (09:03)
--- NOTE | 2020-12-06 09:45 | Progress Note ---
Assessment and Plan Please see detailed consultation from yesterday. Patient is clinically stable and chest pain-free. Cont in heparin gtt/dapt. Long discussion again with patient today. N.p.o. after midnight for heart catheterization in a.m. Follow-up CBC and BMP. Please transfuse if necessary. Subjective Date of service: 12/06/20 Principal diagnosis: debridement Interval history: No complaints overnight. No chest pain or shortness of breath. Objective Vital Signs Temp Pulse Pulse Pulse Resp Resp BP 12/06/20 07:38 98.1 F 57 L 18 110/66 12/06/20 04:12 19 12/06/20 04:00 55 L 12/06/20 03:54 17 12/06/20 03:41 98.5 F 63 16 109/64 12/06/20 03:24 17 12/06/20 00:34 17 12/06/20 00:04 18 12/05/20 23:38 98.4 F 60 17 107/65 12/05/20 20:19 19 12/05/20 20:15 58 L 12/05/20 19:30 98.3 F 61 16 104/68 12/05/20 17:30 20 12/05/20 17:00 81 70 70 17 12/05/20 16:34 98.6 F 57 L 18 99/61 12/05/20 12:09 98.0 F 68 18 115/73 Pulse Ox 12/06/20 07:38 98 12/06/20 04:12 12/06/20 04:00 12/06/20 03:54 12/06/20 03:41 97 12/06/20 03:24 12/06/20 00:34 12/06/20 00:04 12/05/20 23:38 99 12/05/20 20:19 99 12/05/20 20:15 12/05/20 19:30 99 12/05/20 17:30 12/05/20 17:00 98 12/05/20 16:34 98 12/05/20 12:09 98 - Labs and Meds Coagulation 12/05/20 Range/Units 17:55 PT 15.6 H (12.2-14.9) Sec. INR 1.19 H (0.87-1.13)
[2020-12-06] MEDS ORDERED: MAGNESIUM CITRATE 300 ML ORAL LIQD PO PRN (12:25)
--- NOTE | 2020-12-06 12:25 | Progress Note ---
Assessment and Plan 65-year-old male with right below-knee amputation after complications from endovascular therapy performed by Dr. Holland with attempt by for salavage with resultant BKA. Patient has now sought our care and is now status post debridement of the right below-knee amputation with graft material implanted and wound VAC placed. Need pain medication optimized. Will perform. Need medication for constipation. Patient perfers magnesium citrate. Will need approval for wound VAC. Cardiology notified and plan for catheterization on Monday. Patient informed of the plan. Subjective Date of service: 12/06/20 Principal diagnosis: debridement Interval history: Having some right stump pain. Plan for cardiac catheterization on Monday. Patient is currently without chest pain. Continue wound care. Objective - Constitutional Vitals: Vital Signs - 12hr 12/06/20 12/06/20 12/06/20 00:34 03:24 03:41 Temperature 98.5 F Pulse Rate 63 Respiratory 17 17 16 Rate Respiratory Rate [Right Lower] Blood Pressure 109/64 O2 Sat by Pulse 97 Oximetry 12/06/20 12/06/20 12/06/20 03:54 04:00 04:12 Temperature Pulse Rate 55 L Respiratory 17 Rate Respiratory 19 Rate [Right Lower] Blood Pressure O2 Sat by Pulse Oximetry 12/06/20 12/06/20 12/06/20 07:38 10:10 11:19 Temperature 98.1 F 98.0 F Pulse Rate 57 L 67 Respiratory 18 21 18 Rate Respiratory Rate [Right Lower] Blood Pressure 110/66 97/59 O2 Sat by Pulse 98 98 97 Oximetry General appearance: Present: no acute distress - EENT Eyes: EOM intact ENT: hearing intact - Respiratory Respiratory effort: normal Extremities: abnormal (right bka) Extremity abnormal: pulses diminished - Gastrointestinal General gastrointestinal: Present: soft, non-tender - Psychiatric Psychiatric: appropriate mood/affect, cooperative - Labs CBC & Chem 7: 12/05/20 05:07 12/05/20 02:43 Labs: Abnormal lab results 12/05/20 12/06/20 12/06/20 Range/Units 17:55 02:30 08:25 PT 15.6 H (12.2-14.9) Sec. INR 1.19 H (0.87-1.13) Heparin Anti-Xa Level 0.16 L 0.23 L 0.29 L (0.3-0.7) U.I./ml Medications & Allergies - Medications Allergies/Adverse Reactions: Allergies procaine [From Novocain] Allergy (Verified 12/03/20 15:52) Blacks out Home Medications: Home Medications Medication Instructions Recorded Confirmed Last Taken Type Aspirin [Adult Aspirin] 81 mg PO DAILY 12/03/20 12/04/20 11/30/20 History AtorvaSTATin [Lipitor] 40 mg PO QHS 12/03/20 12/04/20 12/03/20 History Ciprofloxacin HCl 1 tab PO BID 12/03/20 12/04/20 12/04/20 08:00 History Ticagrelor [Brilinta] 90 mg PO BID 12/03/20 12/04/20 12/03/20 History Warfarin [Coumadin] 5 mg PO QDAY 12/03/20 12/04/20 11/30/20 History Gabapentin 300 mg PO TID 12/04/20 12/04/20 12/03/20 History HYDROcodone/APAP 10-325 [[place] 1 each PO Q6HR PRN 12/04/20 12/04/20 12/04/20 08:00 History 10/325] methOCARBAMOL [Robaxin TAB] 750 mg PO BID 12/04/20 12/04/20 12/03/20 History Active Medications: Generic Name Dose Route Start Last Admin Trade Name Freq PRN Reason Stop Dose Admin Acetaminophen 1,000 mg 12/04/20 06:00 12/04/20 12:15 Acetaminophen 500 Mg Tab PO 1,000 mg PREOP SUSU Administration Acetaminophen 650 mg 12/04/20 17:19 12/05/20 17:28 Acetaminophen 325 Mg Tab PO 650 mg Q4H PRN Administration Pain MILD(1-3)/Fever >100.5/HAND Aspirin 81 mg 12/05/20 10:00 12/06/20 09:03 Aspirin Ec 81 Mg Tab PO 81 mg DAILY SUSU Administration Atorvastatin Calcium 40 mg 12/04/20 22:00 12/05/20 21:53 Atorvastatin 40 Mg Tab PO 40 mg QHS SUSU Administration Gabapentin 300 mg 12/04/20 20:00 12/06/20 08:57 Gabapentin 300 Mg Cap PO 300 mg TID SUSU Administration Hydromorphone HCl 0.5 mg 12/04/20 13:02 12/04/20 17:50 Hydromorphone 1 Mg/1 Ml Inj IV 0.5 mg Q10MIN PRN Administration Pain , Severe (7-10) Hydromorphone HCl 0.5 mg 12/04/20 17:19 12/06/20 08:56 Hydromorphone 1 Mg/1 Ml Inj IV 0.5 mg Q3H PRN Administration Pain , Severe (7-10) Heparin Sodium/Sodium Chloride 25,000 unit in 500 mls @ 21 mls/hr 12/05/20 04:00 12/06/20 11:08 Heparin/ 0.45% Nacl-25,000 Unit/500 Ml IV 1,250 units/hr TITR SUSU 25 mls/hr Titration Protocol 1,050 UNITS/HR Levofloxacin 500 mg 12/05/20 10:00 12/06/20 09:03 Levofloxacin 500 Mg Tab PO 500 mg Q24HR SUSU Administration Methocarbamol 750 mg 12/04/20 22:00 12/06/20 09:03 Methocarbamol 750 Mg Tab PO 750 mg BID SUSU Administration Ondansetron HCl 4 mg 12/05/20 23:06 Ondansetron 4 Mg/2 Ml Inj IV Q4H PRN Nausea And Vomiting Oxycodone/Acetaminophen 1 tab 12/06/20 11:11 Oxycodone /Acetaminophen 5-325mg Tab PO Q6H PRN Pain, Moderate (4-6) Oxycodone/Acetaminophen 2 tab 12/06/20 11:12 Oxycodone /Acetaminophen 5-325mg Tab PO Q8H PRN Pain , Severe (7-10) Pantoprazole Sodium 40 mg 12/05/20 07:30 12/06/20 08:57 Pantoprazole 40 Mg Tab PO 40 mg QDAC SUSU Administration Ticagrelor 90 mg 12/04/20 22:00 12/04/20 22:29 Ticagrelor 90 Mg Tab PO 90 mg BID SUSU Administration HEART Score - HEART Score Troponin: Troponin T 1.030 ng/mL (0.00-0.029) H* D 12/05/20 10:42
[2020-12-06] MEDS: oxyCODONE /ACETAMINOPHEN 5-325MG TAB PO PRN (13:03)
--- NOTE | 2020-12-06 13:05 | Electrocardiograph Report ---
[facility] Test Date: 2020-12-05 Test Time: 03:15:51 Pat Name: JEN LONG Department: 4T Room: A471 1 Gender: M Automat Watcher: ELLIOT : 1955 Requested By: KELLEE THORNE Order Number: [id number] Reading MD: Mina Norris Measurements Intervals [place] Rate: 83 P: 104 NE: 134 QRS: 133 QRSD: 142 T: 35 QT: 376 QTc: 442 Interpretive Statements Sinus rhythm Right bundle branch block Anterolateral infarct, acute No previous ECG available for comparison Electronically Signed On 12-06-2020 13:05:30 EDT by Mina Norris
[2020-12-06] MEDS ORDERED: MAGNESIUM CITRATE 300 ML ORAL LIQD PO ONE (13:30)
[2020-12-06 14:45] LABS: Basophils % (Auto) 0.3 % (0.0-1.8); Eosinophils # (Auto) 0.2 K/mm3 (0.0-0.4); Eosinophils % (Auto) 2.9 % (0.0-4.3); Hematocrit 26.9 % (35.5-45.6); Hemoglobin 8.4 gm/dl (11.8-15.2); Lymphocytes % (Auto) 32.4 % (13.4-35.0); Mean Corpuscular HGB Conc 31 % (32-34); Mean Corpuscular Volume 85 fl (84-94); Monocytes # (Auto) 0.9 K/mm3 (0.0-0.8); Platelet Count 156 K/mm3 (140-440); Red Blood Count 3.16 M/mm3 (3.65-5.03); Red Cell Distribution Width 17.8 % (13.2-15.2)
[2020-12-06 14:55] LABS: Blood Urea Nitrogen 9 mg/dL (9-20); Calcium 7.9 mg/dL (8.4-10.2); Hemolysis Index 0
[2020-12-06 14:59] LABS: BUN/Creatinine Ratio 23
[2020-12-06 18:57] LABS: INR 1.04 (0.87-1.13)
[2020-12-07] MEDS: oxyCODONE /ACETAMINOPHEN 5-325MG TAB PO PRN ×3 (01:15→22:27)
[2020-12-07 02:53] LABS: Hematocrit 25.2 % (35.5-45.6); Hemoglobin 8.1 gm/dl (11.8-15.2)
[2020-12-07] MEDS ORDERED: SODIUM CHLORIDE 0.9% 500 ML 500 ML ONE (08:37)
[2020-12-07] MEDS ORDERED: HEPARIN 10,000 UNITS/10 ML VIAL ONE (08:42)
[2020-12-07] MEDS ORDERED: HEPARIN/NS 5000 UNIT/500ML 1,000 ML IR ONE (08:42)
[2020-12-07] MEDS ORDERED: VERAPAMIL 5 MG/2 ML INJ ONE (08:43)
[2020-12-07] MEDS ORDERED: LIDOCAINE (2%) 20 MG/1 ML VIAL 20 ML MDV INFILTRATI ONE (08:43)
[2020-12-07] MEDS: ASPIRIN EC 81 MG TAB PO SCH ×2 (08:53→12:15)
[2020-12-07] MEDS ORDERED: MIDAZOLAM 2 MG/2 ML INJ ONE (09:44)
[2020-12-07] MEDS ORDERED: fentaNYL 100 MCG/2 ML INJ ONE (09:45)
[2020-12-07] MEDS ORDERED: NITROGLYCERIN SYRINGE 3 ML ONE (09:56)
--- NOTE | 2020-12-07 10:44 | Progress Note ---
Assessment and Plan 65-year-old male with peripheral vascular disease status post right BKA has known coronary arterial disease with bypass had abnormal EKG with abnormal troponin here for left heart cath has anemia post heparin 48 hours. Patient cardiac cath revealed left main patent LAD proximal 1% patent ESCOBAR to LAD circumflex mid 80% OM1 stent patent SVG to OM 2 has a distal 80% lesion RCA is 100% with normal function we will treat the patient medically 1 patient stabilized will consider outpatient revascularization add low-dose beta-lula and Imdur. Discussed this with primary team and with the patient in detail - Patient Problems (1) Hyperlipemia, mixed Current Visit: Yes Status: Chronic (2) NSTEMI (non-ST elevated myocardial infarction) Current Visit: Yes Status: Acute (3) Hypertension Current Visit: Yes Status: Chronic Qualifiers: Hypertension type: primary hypertension Qualified Code(s): I10 - Essential (primary) hypertension (4) CAD (coronary artery disease) Current Visit: Yes Status: Chronic Qualifiers: Coronary Disease-Associated Artery/Lesion type: [place] artery Associated angina: with stable angina (5) Atherosclerotic PVD with ulceration Current Visit: Yes Status: Acute Qualifiers: Peripheral atherosclerosis location: lower extremity Peripheral atherosclerosis artery type: [place] artery Laterality: right (6) Abnormal EKG Current Visit: Yes Status: Chronic (7) Status post below knee amputation of right lower extremity Current Visit: Yes Status: Acute (8) Anemia Current Visit: Yes Status: Acute Subjective Date of service: 12/07/20 Principal diagnosis: nstemi Interval history: no chest pain lying in bed right leg pain Objective Vital Signs Temp Pulse Resp BP Pulse Ox 12/07/20 04:30 98.3 F 58 L 18 105/58 99 12/07/20 04:00 82 12/07/20 00:03 98.5 F 62 18 116/63 97 12/06/20 22:00 18 99 12/06/20 19:48 98.4 F 66 18 112/64 98 12/06/20 16:14 98.4 F 64 18 100/53 99 12/06/20 12:00 85 12/06/20 11:19 98.0 F 67 18 97/59 97 - Physical Examination General: Appears Well HEENT: Positive: PERRL Neck: Positive: neck supple Cardiac: Positive: Reg Rate and Rhythm Lungs: Positive: clear to auscultation Neuro: Positive: Grossly Intact Abdomen: Positive: Unremarkable Extremities: Present: Other (right bka) - Labs and Meds Coagulation 12/06/20 Range/Units 18:05 PT 14.1 (12.2-14.9) Sec. INR 1.04 (0.87-1.13) CBC 12/06/20 12/07/20 Range/Units 14:02 02:18 WBC 6.1 (4.5-11.0) K/mm3 RBC 3.16 L (3.65-5.03) M/mm3 Hgb 8.4 L 8.1 L (11.8-15.2) gm/dl Hct 26.9 L 25.2 L (35.5-45.6) % Plt Count 156 156 (140-440) K/mm3 Lymph # (Auto) 2.0 (1.2-5.4) K/mm3 [place] # (Auto) 0.9 H (0.0-0.8) K/mm3 Eos # (Auto) 0.2 (0.0-0.4) K/mm3 Baso # (Auto) 0.0 (0.0-0.1) K/mm3 Comprehensive Metabolic Panel 12/06/20 Range/Units 14:02 Sodium 134 L (137-145) mmol/L Potassium 4.2 (3.6-5.0) mmol/L Chloride 99.3 (98-107) mmol/L Carbon Dioxide 31 H (22-30) mmol/L BUN 9 (9-20) mg/dL Creatinine 0.4 L (0.8-1.3) mg/dL Glucose 122 H (75-100) mg/dL Calcium 7.9 L (8.4-10.2) mg/dL - Imaging and Cardiology Cardiac cath: report reviewed (lt main patent, lad proximal 100% escobar to lad patent, lcx mid 80% om1 stent patent, distal lcx 100%, svg to om2 mid stent patent, distal 80-%, collateral feeding small pda, rca mid 100%, normal lv function ) - Telemetry EKG Rhythm: Sinus Rhythm
--- NOTE | 2020-12-07 11:07 | Cardiac Catherization Report ---
DATE OF SERVICE: 12/07/2020 LEFT HEART CATHETERIZATION WITH BYPASS GRAFTS CLINICAL INFORMATION: A 65-year-old male with known peripheral vascular disease with recent right BKA, had abnormal EKG with abnormal troponins placed on oral anticoagulation is chest pain free. The patient has a history of cardiac bypass in the past with stents, is here for a left heart catheterization. DESCRIPTION OF PROCEDURE: Left heart catheterization via the left common femoral artery, sterile technique, local anesthesia, 5-[place]uv[place] groin sheath sewn in. Left engaged JR4 catheter. Left main is a medium caliber and patent. LAD proximal 100%. There is ESCOBAR was engaged with an IM catheter is a medium caliber graft, free of disease at the ostium, body, anastomosis site feeding into the mid LAD. Circumflex, large caliber vessel. Proximal is patent. The mid part of bifurcation of an OM1 has an 80% lesion. OM1 upper branch stent is patent. OM1 lower branch is patent. Distal circumflex is 100%. Then, RCA engaged with an AR mod catheter proximal is 80%, mid 100% in-stent restenosis. SVG to RCA is 100% graft. SVG to LPDA or OM2 is engaged with a JR4 catheter, large caliber graft, free of disease at the ostium, body stent is patent. Distal there is a focal 80% lesion feeding to a small to medium caliber OM2. LV gram done in [place] and RENTERIA shows normal LV function, LVEDP of 70 mmHg, LV is 128, aortic is 120/66. No gradient across the aortic valve on pullback. A 5-Peruvian catheters all taken. A 5 [place]uv[place] groin sheath was discontinued, manual pressure held. No hematoma, no bleeding. SUMMARY: Left main patent, LAD proximal 100%. ESCOBAR to LAD, patent circumflex mid 80% going into an OM1, proximal stent is patent of OM1 upper and lower branch. Distal circular 100%. SVG to OM2, has mid stent patent, but distal 80%, RCA 100% in-stent restenosis. SVG to PDA is 100%, normal LV function. RECOMMENDATIONS: The patient will be optimized medically first and then we will consider FURNACE WORKER of the RCA and circumflex and PCI of SVG to OM2. TID: [id number] RECEIPT: [id number] VRM/HUS
[2020-12-07] MEDS: PANTOPRAZOLE 40 MG TAB PO SCH (12:14)
[2020-12-07] MEDS: GABAPENTIN 300 MG CAP PO SCH ×3 (12:15→22:27)
[2020-12-07] MEDS: levoFLOXacin 500 MG TAB PO SCH (12:16)
[2020-12-07] MEDS: METOPROLOL TARTRATE 25 MG TAB PO SCH ×2 (12:17→22:26)
--- NOTE | 2020-12-07 12:32 | Progress Note ---
Assessment and Plan 65-year-old male with right below-knee amputation after complications from endovascular therapy performed by Dr. Holland with attempt by for salavage with resultant BKA. Patient has now sought our care and is now status post debridement of the right below-knee amputation with graft material implanted and wound VAC placed. Awaiting approval for wound VAC. Restarted warfarin. Will discuss with Dr. Banuelos. Medical management for cardiac issues. Continue antiplatelet therapy. Patient informed of the plan. Subjective Date of service: 12/07/20 Principal diagnosis: nstemi Interval history: Having some right stump pain. Coronary cath demonstrates arterial disease. Recommended medical management at this time. Patient is currently without chest pain. Continue wound care. Objective - Constitutional Vitals: Vital Signs - 12hr 12/07/20 12/07/20 04:00 04:30 Temperature 98.3 F Pulse Rate 82 58 L Respiratory 18 Rate Blood Pressure 105/58 O2 Sat by Pulse 99 Oximetry General appearance: Present: no acute distress - EENT Eyes: EOM intact ENT: hearing intact - Respiratory Respiratory effort: normal Extremities: abnormal (R BKA, wound vac without issue) - Psychiatric Psychiatric: appropriate mood/affect, cooperative - Labs CBC & Chem 7: 12/07/20 02:18 12/06/20 14:02 Labs: Abnormal lab results 12/06/20 12/06/20 12/07/20 Range/Units 14:02 14:02 01:05 RBC 3.16 L (3.65-5.03) M/mm3 Hgb 8.4 L (11.8-15.2) gm/dl Hct 26.9 L (35.5-45.6) % MCH 26 L (28-32) pg MCHC 31 L (32-34) % RDW 17.8 H (13.2-15.2) % [place] % (Auto) 14.0 H (0.0-7.3) % [place] # (Auto) 0.9 H (0.0-0.8) K/mm3 Heparin Anti-Xa Level 0.11 L (0.3-0.7) U.I./ml Sodium 134 L (137-145) mmol/L Carbon Dioxide 31 H (22-30) mmol/L Creatinine 0.4 L (0.8-1.3) mg/dL Glucose 122 H (75-100) mg/dL Calcium 7.9 L (8.4-10.2) mg/dL 12/07/20 Range/Units 02:18 RBC (3.65-5.03) M/mm3 Hgb 8.1 L (11.8-15.2) gm/dl Hct 25.2 L (35.5-45.6) % MCH (28-32) pg MCHC (32-34) % RDW (13.2-15.2) % [place] % (Auto) (0.0-7.3) % [place] # (Auto) (0.0-0.8) K/mm3 Heparin Anti-Xa Level (0.3-0.7) U.I./ml Sodium (137-145) mmol/L Carbon Dioxide (22-30) mmol/L Creatinine (0.8-1.3) mg/dL Glucose (75-100) mg/dL Calcium (8.4-10.2) mg/dL Medications & Allergies - Medications Allergies/Adverse Reactions: Allergies procaine [From Novocain] Allergy (Verified 12/03/20 15:52) Blacks out Home Medications: Home Medications Medication Instructions Recorded Confirmed Last Taken Type Aspirin [Adult Aspirin] 81 mg PO DAILY 12/03/20 12/04/20 11/30/20 History AtorvaSTATin [Lipitor] 40 mg PO QHS 12/03/20 12/04/20 12/03/20 History Ciprofloxacin HCl 1 tab PO BID 12/03/20 12/04/20 12/04/20 08:00 History Ticagrelor [Brilinta] 90 mg PO BID 12/03/20 12/04/20 12/03/20 History Warfarin [Coumadin] 5 mg PO QDAY 12/03/20 12/04/20 11/30/20 History Gabapentin 300 mg PO TID 12/04/20 12/04/20 12/03/20 History HYDROcodone/APAP 10-325 [[place] 1 each PO Q6HR PRN 12/04/20 12/04/20 12/04/20 08:00 History 10/325] methOCARBAMOL [Robaxin TAB] 750 mg PO BID 12/04/20 12/04/20 12/03/20 History Active Medications: Generic Name Dose Route Start Last Admin Trade Name Freq PRN Reason Stop Dose Admin Acetaminophen 650 mg 12/04/20 17:19 12/05/20 17:28 Acetaminophen 325 Mg Tab PO 650 mg Q4H PRN Administration Pain MILD(1-3)/Fever >100.5/HAND Aspirin 81 mg 12/05/20 10:00 12/07/20 12:15 Aspirin Ec 81 Mg Tab PO 81 mg DAILY SUSU Administration Atorvastatin Calcium 40 mg 12/04/20 22:00 12/06/20 21:17 Atorvastatin 40 Mg Tab PO 40 mg QHS SUSU Administration Gabapentin 300 mg 12/04/20 20:00 12/07/20 12:15 Gabapentin 300 Mg Cap PO 300 mg TID SUSU Administration Hydromorphone HCl 0.5 mg 12/04/20 17:19 12/06/20 22:29 Hydromorphone 1 Mg/1 Ml Inj IV 0.5 mg Q3H PRN Administration Pain , Severe (7-10) Heparin Sodium/Sodium Chloride 25,000 unit in 500 mls @ 21 mls/hr 12/05/20 04:00 12/06/20 19:03 Heparin/ 0.45% Nacl-25,000 Unit/500 Ml IV 1,300 units/hr TITR SUSU 26 mls/hr Titration Protocol 1,050 UNITS/HR Isosorbide Mononitrate 30 mg 12/07/20 11:00 12/07/20 12:16 Isosorbide Mononitrate Er 30 Mg Tab PO 30 mg QDAY SUSU Administration Levofloxacin 500 mg 12/05/20 10:00 12/07/20 12:16 Levofloxacin 500 Mg Tab PO 500 mg Q24HR SUSU Administration Magnesium Citrate 300 ml 12/06/20 12:25 Magnesium Citrate 300 Ml Oral Liqd PO QDAY PRN Bowel Movement Methocarbamol 750 mg 12/04/20 22:00 12/06/20 21:17 Methocarbamol 750 Mg Tab PO 750 mg BID SUSU Administration Metoprolol Tartrate 12.5 mg 12/07/20 11:00 12/07/20 12:17 Metoprolol Tartrate 25 Mg Tab PO 12.5 mg BID SUSU Administration Ondansetron HCl 4 mg 12/05/20 23:06 Ondansetron 4 Mg/2 Ml Inj IV Q4H PRN Nausea And Vomiting Oxycodone/Acetaminophen 1 tab 12/06/20 11:11 12/06/20 13:03 Oxycodone /Acetaminophen 5-325mg Tab PO 1 tab Q6H PRN Administration Pain, Moderate (4-6) Oxycodone/Acetaminophen 2 tab 12/06/20 11:12 12/07/20 12:17 Oxycodone /Acetaminophen 5-325mg Tab PO 2 tab Q8H PRN Administration Pain , Severe (7-10) Pantoprazole Sodium 40 mg 12/05/20 07:30 12/07/20 12:14 Pantoprazole 40 Mg Tab PO 40 mg QDAC SUSU Administration Ticagrelor 90 mg 12/04/20 22:00 12/04/20 22:29 Ticagrelor 90 Mg Tab PO 90 mg BID SUSU Administration HEART Score - HEART Score Troponin: Troponin T 1.030 ng/mL (0.00-0.029) H* D 12/05/20 10:42
[2020-12-07] MEDS ORDERED: SODIUM CHLORIDE 0.9% 500 ML 500 ML IV NR (13:17)
--- NOTE | 2020-12-07 13:30 | Progress Note ---
Assessment and Plan Assessment and plan: #Elevated troponin -Cardiac cath today, will follow up outpatient for further intervention -Management per cardiology #History of coronary artery disease -Continue medical therapy #Right BKA amputation wound -Status post I&D on 12/04 -Management per vascular surgery -Wound VAC at discharge -As needed pain control Thank you for your consultation. Medicine will sign off. Call with any questions or concerns. Disposition Plan: Home with wound vac Total Time Spent with Patient (Minutes): 10 minutes History Interval history: No acute events overnight. Patient returned from cardiac cath. No complaints at this time. Hospitalist Physical - Physical exam Narrative exam: GENERAL: Well-developed well-nourished. Lying in bed acute distress. CHEST/LUNGS: CTAB. HEART/CARDIOVASCULAR: RRR. No murmur, rubs or gallops appreciated. ABDOMEN: +BS. NT/ND. NEURO: No focal motor deficit. Follows all commands. MUSCULOSKELETAL: RLE BKA with wound VAC. EXTREMITIES: No cyanosis, clubbing or edema. PSYCH: Cooperative. - Constitutional Vitals: Temp Pulse Resp BP Pulse Ox 98.3 F 58 L 18 105/58 98 12/07/20 04:30 12/07/20 04:30 12/07/20 04:30 12/07/20 04:30 12/07/20 10:00 General appearance: Present: no acute distress - Allied Health Allied health notes reviewed: nursing, social work HEART Score - HEART Score Troponin: Troponin T 1.030 ng/mL (0.00-0.029) H* D 12/05/20 10:42 Results - Labs CBC & Chem 7: 12/07/20 02:18 12/06/20 14:02 Labs: Laboratory Last Values WBC 6.1 K/mm3 (4.5-11.0) 12/06/20 14:02 RBC 3.16 M/mm3 (3.65-5.03) L 12/06/20 14:02 Hgb 8.1 gm/dl (11.8-15.2) L 12/07/20 02:18 Hct 25.2 % (35.5-45.6) L 12/07/20 02:18 MCV 85 fl (84-94) 12/06/20 14:02 MCH 26 pg (28-32) L 12/06/20 14:02 MCHC 31 % (32-34) L 12/06/20 14:02 RDW 17.8 % (13.2-15.2) H 12/06/20 14:02 Plt Count 156 K/mm3 (140-440) 12/07/20 02:18 Lymph % (Auto) 32.4 % (13.4-35.0) 12/06/20 14:02 [place] % (Auto) 14.0 % (0.0-7.3) H 12/06/20 14:02 Eos % (Auto) 2.9 % (0.0-4.3) 12/06/20 14:02 Baso % (Auto) 0.3 % (0.0-1.8) 12/06/20 14:02 Lymph # (Auto) 2.0 K/mm3 (1.2-5.4) 12/06/20 14:02 [place] # (Auto) 0.9 K/mm3 (0.0-0.8) H 12/06/20 14:02 Eos # (Auto) 0.2 K/mm3 (0.0-0.4) 12/06/20 14:02 Baso # (Auto) 0.0 K/mm3 (0.0-0.1) 12/06/20 14:02 Seg Neutrophils % 50.4 % (40.0-70.0) 12/06/20 14:02 Seg Neutrophils # 3.1 K/mm3 (1.8-7.7) 12/06/20 14:02 PT 14.1 Sec. (12.2-14.9) 12/06/20 18:05 INR 1.04 (0.87-1.13) 12/06/20 18:05 APTT 27.3 Sec. (24.2-36.6) 12/05/20 05:07 Heparin Anti-Xa Level 0.11 U.I./ml (0.3-0.7) L 12/07/20 01:05 Sodium 134 mmol/L (137-145) L 12/06/20 14:02 Potassium 4.2 mmol/L (3.6-5.0) 12/06/20 14:02 Chloride 99.3 mmol/L (98-107) 12/06/20 14:02 Carbon Dioxide 31 mmol/L (22-30) H 12/06/20 14:02 Anion Gap 8 mmol/L 12/06/20 14:02 BUN 9 mg/dL (9-20) 12/06/20 14:02 Creatinine 0.4 mg/dL (0.8-1.3) L 12/06/20 14:02 Estimated GFR > 60 ml/min 12/06/20 14:02 BUN/Creatinine Ratio 23 % 12/06/20 14:02 Glucose 122 mg/dL (75-100) H 12/06/20 14:02 POC Glucose 102 mg/dL (70-105) 12/07/20 12:25 Calcium 7.9 mg/dL (8.4-10.2) L 12/06/20 14:02 Troponin T 1.030 ng/mL (0.00-0.029) H* D 12/05/20 10:42 Triglycerides 98 mg/dL (2-149) 12/05/20 02:43 Cholesterol 100 mg/dL (50-199) 12/05/20 02:43 LDL Cholesterol Direct 54 mg/dL (50-130) 12/05/20 02:43 HDL Cholesterol 27 mg/dL (40-59) L 12/05/20 02:43 Cholesterol/HDL Ratio 3.70 % 12/05/20 02:43 Blood Type O POSITIVE 12/04/20 12:20 Antibody Screen Negative 12/04/20 12:20 [place]/IV: Voiding Method Urinal Active Medications - Current Medications Current Medications: Generic Name Dose Route Start Last Admin Trade Name Freq PRN Reason Stop Dose Admin Acetaminophen 650 mg 12/04/20 17:19 12/05/20 17:28 Acetaminophen 325 Mg Tab PO 650 mg Q4H PRN Administration Pain MILD(1-3)/Fever >100.5/HAND Aspirin 81 mg 12/05/20 10:00 12/07/20 12:15 Aspirin Ec 81 Mg Tab PO 81 mg DAILY SUSU Administration Atorvastatin Calcium 40 mg 12/04/20 22:00 12/06/20 21:17 Atorvastatin 40 Mg Tab PO 40 mg QHS SUSU Administration Gabapentin 300 mg 12/04/20 20:00 12/07/20 12:15 Gabapentin 300 Mg Cap PO 300 mg TID SUSU Administration Hydromorphone HCl 0.5 mg 12/04/20 17:19 12/06/20 22:29 Hydromorphone 1 Mg/1 Ml Inj IV 0.5 mg Q3H PRN Administration Pain , Severe (7-10) Heparin Sodium/Sodium Chloride 25,000 unit in 500 mls @ 21 mls/hr 12/05/20 04:00 12/06/20 19:03 Heparin/ 0.45% Nacl-25,000 Unit/500 Ml IV 1,300 units/hr TITR SUSU 26 mls/hr Titration Protocol 1,050 UNITS/HR Sodium Chloride 500 mls @ 0 mls/hr 12/07/20 13:17 Nacl 0.9% 500 Ml IV 12/07/20 13:18 ONCE ONE As Directed Isosorbide Mononitrate 30 mg 12/07/20 11:00 12/07/20 12:16 Isosorbide Mononitrate Er 30 Mg Tab PO 30 mg QDAY SUSU Administration Levofloxacin 500 mg 12/05/20 10:00 12/07/20 12:16 Levofloxacin 500 Mg Tab PO 500 mg Q24HR SUSU Administration Magnesium Citrate 300 ml 12/06/20 12:25 Magnesium Citrate 300 Ml Oral Liqd PO QDAY PRN Bowel Movement Methocarbamol 750 mg 12/04/20 22:00 12/06/20 21:17 Methocarbamol 750 Mg Tab PO 750 mg BID SUSU Administration Metoprolol Tartrate 12.5 mg 12/07/20 11:00 12/07/20 12:17 Metoprolol Tartrate 25 Mg Tab PO 12.5 mg BID SUSU Administration Ondansetron HCl 4 mg 12/05/20 23:06 Ondansetron 4 Mg/2 Ml Inj IV Q4H PRN Nausea And Vomiting Oxycodone/Acetaminophen 1 tab 12/06/20 11:11 12/06/20 13:03 Oxycodone /Acetaminophen 5-325mg Tab PO 1 tab Q6H PRN Administration Pain, Moderate (4-6) Oxycodone/Acetaminophen 2 tab 12/06/20 11:12 12/07/20 12:17 Oxycodone /Acetaminophen 5-325mg Tab PO 2 tab Q8H PRN Administration Pain , Severe (7-10) Pantoprazole Sodium 40 mg 12/05/20 07:30 12/07/20 12:14 Pantoprazole 40 Mg Tab PO 40 mg QDAC SUSU Administration Ticagrelor 90 mg 12/04/20 22:00 12/04/20 22:29 Ticagrelor 90 Mg Tab PO 90 mg BID SUSU Administration Nutrition/Malnutrition Assess - Dietary Evaluation Nutrition/Malnutrition Findings: Nutrition Notes Start: 12/05/20 11:35 Freq: Status: Active Protocol: Document 12/05/20 11:36 SG (Rec: 12/05/20 11:41 SG [id number]) Nutrition Notes Need for Assessment generated from: Education Initial or Follow up Brief Note Other Pertinent Diagnosis BKA Current Diet cardiac Labs/Tests reviewed Pertinent Medications Warfarin Height 5 ft 11 in Weight 72.4 kg [place] Body Weight (kg) 78.18 BMI 22.2 Weight Status Appropriate Subjective/Other Information Pt sceened for coumadin education. Recent BKA. Nutrition Intervention Teaching Recipient Patient Learning Readiness Good Teaching Methods Discussion Response to Teaching Verbalize understanding Education Handouts Provided Vitamin K and medications Barriers to Learning No Barriers RD phone number provided Yes Patient aware of follow up options Yes
[2020-12-07] MEDS ORDERED: WARFARIN 5 MG TAB PO SCH (17:00)
[2020-12-07 18:18] LABS: INR 1.03 (0.87-1.13)
[2020-12-07] MEDS: TICAGRELOR 90 MG TAB PO SCH (22:26)
[2020-12-07] MEDS: ZOLPIDEM 5 MG TAB PO PRN (22:26)
[2020-12-08] MEDS: HEPARIN/ 0.45% NACL DRIP 25,000 UNIT/500 ML BAG IV SCH (01:46)
[2020-12-08 05:19] LABS: Hematocrit 25.7 % (35.5-45.6); Hemoglobin 8.3 gm/dl (11.8-15.2); Mean Corpuscular HGB Conc 32 % (32-34); Mean Corpuscular Volume 83 fl (84-94); Platelet Count 177 K/mm3 (140-440); Red Cell Distribution Width 17.4 % (13.2-15.2)
[2020-12-08 05:29] LABS: INR 1.05 (0.87-1.13)
[2020-12-08 05:31] LABS: BUN/Creatinine Ratio 23; Blood Urea Nitrogen 9 mg/dL (9-20); Calcium 8.5 mg/dL (8.4-10.2); Hemolysis Index 0
[2020-12-08] MEDS: oxyCODONE /ACETAMINOPHEN 5-325MG TAB PO PRN ×2 (10:55→22:12)
[2020-12-08] MEDS: TICAGRELOR 90 MG TAB PO SCH ×2 (10:56→22:10)
[2020-12-08] MEDS: METOPROLOL TARTRATE 25 MG TAB PO SCH ×3 (10:56→22:20)
[2020-12-08] MEDS: ASPIRIN EC 81 MG TAB PO SCH (10:56)
[2020-12-08] MEDS: levoFLOXacin 500 MG TAB PO SCH (10:56)
[2020-12-08] MEDS: PANTOPRAZOLE 40 MG TAB PO SCH (11:28)
[2020-12-08] MEDS: GABAPENTIN 300 MG CAP PO SCH ×3 (11:28→22:11)
--- NOTE | 2020-12-08 13:01 | Progress Note ---
Assessment and Plan The patient will require return to the OR for replacement of the wound matrix as well as excisional debridement and wound VAC placement. This is necessary to cover the bone as the previously placed wound matrix was dislodged during a woun d VAC change. Additionally he may require excision of the lateral skin age which was made ischemic by the sponge being placed on the skin. The patient underwent an echocardiogram which demonstrated fairly normal cardiac function and no evidence of cardiac thrombus. I discussed the findings with Dr Corcoran who recommended that he remain on Brilinta and aspirin however he does not require anticoagulation with Coumadin. He also recommended that he follow- up with him upon discharge and that he will eventually refer him to [facility] to have elective revascularization of his right coronary artery. The patient should be able to be discharged either tomorrow or after he has had his debridement and placement of the wound matrix. Subjective Date of service: 12/08/20 Principal diagnosis: nstemi Interval history: The patient had no significant events overnight. He has no complaints at this time. He denies having any pain in his right BKA stump. Objective - Constitutional Vitals: Vital Signs - 12hr 12/08/20 12/08/20 12/08/20 04:04 08:50 10:29 Temperature 98.4 F 98.1 F Pulse Rate 68 66 66 Respiratory 20 20 Rate Blood Pressure 114/69 96/52 O2 Sat by Pulse 99 98 Oximetry General appearance: Present: no acute distress Extremities: abnormal (The right BKA wound VAC was removed. The VAC has been changed and the foam has been placed on the skin which cause ischemia to the lateral skin edge. The wound matrix had also been removed from the bone and there was some necrotic tissue within the wound.) - Labs CBC & Chem 7: 12/08/20 04:40 12/08/20 04:40 Labs: Abnormal lab results 12/07/20 12/08/20 12/08/20 Range/Units 17:00 04:40 04:40 RBC 3.10 L (3.65-5.03) M/mm3 Hgb 8.3 L (11.8-15.2) gm/dl Hct 25.7 L (35.5-45.6) % MCV 83 L (84-94) fl MCH 27 L (28-32) pg RDW 17.4 H (13.2-15.2) % Creatinine 0.4 L (0.8-1.3) mg/dL Glucose 115 H (75-100) mg/dL Crossmatch See Detail Medications & Allergies - Medications Allergies/Adverse Reactions: Allergies procaine [From Novocain] Allergy (Verified 12/03/20 15:52) Blacks out Home Medications: Home Medications Medication Instructions Recorded Confirmed Last Taken Type Aspirin [Adult Aspirin] 81 mg PO DAILY 12/03/20 12/04/20 11/30/20 History AtorvaSTATin [Lipitor] 40 mg PO QHS 12/03/20 12/04/20 12/03/20 History Ciprofloxacin HCl 1 tab PO BID 12/03/20 12/04/20 12/04/20 08:00 History Ticagrelor [Brilinta] 90 mg PO BID 12/03/20 12/04/20 12/03/20 History Warfarin [Coumadin] 5 mg PO QDAY 12/03/20 12/04/20 11/30/20 History Gabapentin 300 mg PO TID 12/04/20 12/04/20 12/03/20 History HYDROcodone/APAP 10-325 [[place] 1 each PO Q6HR PRN 12/04/20 12/04/20 12/04/20 08:00 History 10/325] methOCARBAMOL [Robaxin TAB] 750 mg PO BID 12/04/20 12/04/20 12/03/20 History Active Medications: Generic Name Dose Route Start Last Admin Trade Name Freq PRN Reason Stop Dose Admin Acetaminophen 650 mg 12/04/20 17:19 12/05/20 17:28 Acetaminophen 325 Mg Tab PO 650 mg Q4H PRN Administration Pain MILD(1-3)/Fever >100.5/HAND Aspirin 81 mg 12/05/20 10:00 12/08/20 10:56 Aspirin Ec 81 Mg Tab PO 81 mg DAILY SUSU Administration Atorvastatin Calcium 40 mg 12/04/20 22:00 12/07/20 22:27 Atorvastatin 40 Mg Tab PO 40 mg QHS SUSU Administration Gabapentin 300 mg 12/04/20 20:00 12/08/20 11:28 Gabapentin 300 Mg Cap PO Not Given TID SUSU Hydromorphone HCl 0.5 mg 12/04/20 17:19 12/06/20 22:29 Hydromorphone 1 Mg/1 Ml Inj IV 0.5 mg Q3H PRN Administration Pain , Severe (7-10) Heparin Sodium/Sodium Chloride 25,000 unit in 500 mls @ 21 mls/hr 12/05/20 04:00 12/08/20 01:46 Heparin/ 0.45% Nacl-25,000 Unit/500 Ml IV 1,300 units/hr TITR SUSU 26 mls/hr Administration Protocol 1,050 UNITS/HR Isosorbide Mononitrate 30 mg 12/07/20 11:00 12/08/20 10:55 Isosorbide Mononitrate Er 30 Mg Tab PO 30 mg QDAY SUSU Administration Magnesium Citrate 300 ml 12/06/20 12:25 Magnesium Citrate 300 Ml Oral Liqd PO QDAY PRN Bowel Movement Methocarbamol 750 mg 12/04/20 22:00 12/08/20 10:56 Methocarbamol 750 Mg Tab PO 750 mg BID SUSU Administration Metoprolol Tartrate 12.5 mg 12/07/20 11:00 12/08/20 10:56 Metoprolol Tartrate 25 Mg Tab PO 12.5 mg BID SUSU Administration Ondansetron HCl 4 mg 12/05/20 23:06 Ondansetron 4 Mg/2 Ml Inj IV Q4H PRN Nausea And Vomiting Oxycodone/Acetaminophen 1 tab 12/06/20 11:11 12/07/20 22:27 Oxycodone /Acetaminophen 5-325mg Tab PO 1 tab Q6H PRN Administration Pain, Moderate (4-6) Oxycodone/Acetaminophen 2 tab 12/06/20 11:12 12/08/20 10:55 Oxycodone /Acetaminophen 5-325mg Tab PO 2 tab Q8H PRN Administration Pain , Severe (7-10) Pantoprazole Sodium 40 mg 12/05/20 07:30 12/08/20 11:28 Pantoprazole 40 Mg Tab PO Not Given QDAC [facility] Ticagrelor 90 mg 12/04/20 22:00 12/08/20 10:56 Ticagrelor 90 Mg Tab PO 90 mg BID SUSU Administration Warfarin Sodium 5 mg 12/07/20 17:00 12/07/20 22:30 Warfarin 5 Mg Tab PO Not Given DAILY@1700 [facility] Zolpidem Tartrate 5 mg 12/07/20 20:59 12/07/20 22:26 Zolpidem 5 Mg Tab PO 5 mg QHS PRN Administration Sleep HEART Score - HEART Score Troponin: Troponin T 1.030 ng/mL (0.00-0.029) H* D 12/05/20 10:42
--- NOTE | 2020-12-08 14:29 | Progress Note ---
Assessment and Plan Patient is a 65-year-old male with peripheral vascular disease status post right BKA has known coronary arterial disease with bypass NSTEMI (non-ST elevated myocardial infarction) CAD (coronary artery disease) Hypertension * Echo 12/07/2020-EF 50 to 55%, mild diastolic dysfunction is present impaired relaxation pattern right ventricular systolic function normal, right ventricle is mildly dilated, left and right atrium are normal in size * LHC 12/07/2020-revealed left main patent LAD proximal 1% patent ESCOBAR to LAD circumflex mid 80% OM1 stent patent SVG to OM 2 has a distal 80% lesion RCA is 100% with normal function we will treat the patient medically 1 patient stabilized will consider outpatient revascularization * Currently on: asa, ticagrelor 90mg PO BID, Imdur 30mg PO QD, metoprolol 12.5mg PO BID, Atherosclerotic PVD with ulceration * Managed per Vascular Anemia * Currently on ferrous sulfate 325mg PO BID Patient has follow up appointment with Dr. Maame Nguyen, [facility], on 12/23/2020 at 3:30pm at our [place] location. Patient seen in conjunction with Dr. Corcoran who agrees with this plan of care. Will continue to follow - Patient Problems (1) Anemia Current Visit: Yes Status: Acute (2) Atherosclerotic PVD with ulceration Current Visit: Yes Status: Acute Qualifiers: Peripheral atherosclerosis location: lower extremity Peripheral atherosclerosis artery type: [place] artery Laterality: right (3) NSTEMI (non-ST elevated myocardial infarction) Current Visit: Yes Status: Acute (4) Status post below knee amputation of right lower extremity Current Visit: Yes Status: Acute (5) Abnormal EKG Current Visit: Yes Status: Chronic (6) CAD (coronary artery disease) Current Visit: Yes Status: Chronic Qualifiers: Coronary Disease-Associated Artery/Lesion type: [place] artery Associated angina: with stable angina (7) Hyperlipemia, mixed Current Visit: Yes Status: Chronic (8) Hypertension Current Visit: Yes Status: Chronic Qualifiers: Hypertension type: primary hypertension Qualified Code(s): I10 - Essential (primary) hypertension Subjective Date of service: 12/08/20 Principal diagnosis: nstemi Interval history: Patient in bed. No complaints sinus 74 on monitor Objective Vital Signs Temp Pulse Pulse Pulse Resp BP Pulse Ox 12/08/20 10:29 66 12/08/20 08:50 98.1 F 66 20 96/52 98 12/08/20 04:04 98.4 F 68 20 114/69 99 12/07/20 23:42 98.6 F 69 18 94/56 98 12/07/20 23:00 62 64 96 12/07/20 22:27 20 12/07/20 22:26 63 104/60 12/07/20 20:28 99 12/07/20 19:46 98.6 F 63 20 104/60 100 - Physical Examination General: Appears Well HEENT: Positive: PERRL Neck: Positive: neck supple Cardiac: Positive: Reg Rate and Rhythm Lungs: Positive: Normal Breath Sounds Neuro: Positive: Grossly Intact Abdomen: Positive: Unremarkable Extremities: Present: upper extr. pulses, lower extr. pulses, Other (right bka) - Labs and Meds Coagulation 12/07/20 12/08/20 Range/Units 17:00 04:40 PT 14.0 14.2 (12.2-14.9) Sec. INR 1.03 1.05 (0.87-1.13) CBC 12/08/20 Range/Units 04:40 WBC 5.4 (4.5-11.0) K/mm3 RBC 3.10 L (3.65-5.03) M/mm3 Hgb 8.3 L (11.8-15.2) gm/dl Hct 25.7 L (35.5-45.6) % Plt Count 177 (140-440) K/mm3 Comprehensive Metabolic Panel 12/08/20 Range/Units 04:40 Sodium 139 (137-145) mmol/L Potassium 4.4 (3.6-5.0) mmol/L Chloride 104.4 (98-107) mmol/L Carbon Dioxide 27 (22-30) mmol/L BUN 9 (9-20) mg/dL Creatinine 0.4 L (0.8-1.3) mg/dL Glucose 115 H (75-100) mg/dL Calcium 8.5 (8.4-10.2) mg/dL - Imaging and Cardiology Echo: report reviewed Cardiac cath: report reviewed (lt main patent, lad proximal 100% escobar to lad patent, lcx mid 80% om1 stent patent, distal lcx 100%, svg to om2 mid stent patent, distal 80-%, collateral feeding small pda, rca mid 100%, normal lv function ) - Telemetry EKG Rhythm: Sinus Rhythm - EKG Sinus rhythms and dysrhythmias: sinus rhythm
[2020-12-08] MEDS: FERROUS SULFATE 325 MG TAB PO SCH (22:09)
[2020-12-08] MEDS: ZOLPIDEM 5 MG TAB PO PRN (22:11)
[2020-12-08] MEDS: ASCORBIC ACID 500 MG TAB PO SCH (22:12)
[2020-12-09] MEDS: oxyCODONE /ACETAMINOPHEN 5-325MG TAB PO PRN ×2 (03:06→19:27)
[2020-12-09] MEDS: PANTOPRAZOLE 40 MG TAB PO SCH (09:25)
[2020-12-09] MEDS: GABAPENTIN 300 MG CAP PO SCH (09:25)
[2020-12-09] MEDS: HYDROmorphone 1 MG/1 ML INJ IV PRN (09:55)
[2020-12-09] MEDS ORDERED: ISOSORBIDE DINITRATE 10 MG TAB PO SCH (10:00)
[2020-12-09] MEDS: FERROUS SULFATE 325 MG TAB PO SCH (10:00)
[2020-12-09] MEDS: TICAGRELOR 90 MG TAB PO SCH (10:00)
[2020-12-09] MEDS: ASPIRIN EC 81 MG TAB PO SCH (10:02)
[2020-12-09] MEDS: ASCORBIC ACID 500 MG TAB PO SCH (10:10)
[2020-12-09] MEDS: METOPROLOL TARTRATE 25 MG TAB PO SCH (10:11)
--- NOTE | 2020-12-09 10:51 | Anesthesia Day of Surgery ---
Anesthesia Day of Surgery - Day of Surgery Patient Examined: Yes Patient H&P Reviewed: Yes Patient is NPO: Yes
[2020-12-09] MEDS ORDERED: HYDROmorphone 1 MG/1 ML INJ ONE (11:51)
[2020-12-09] MEDS ORDERED: propofoL 200 MG/20 ML VIAL IV ONE (11:51)
[2020-12-09] MEDS ORDERED: LIDOCAINE MPF (2%) 20 MG/1 ML VIAL 5 ML ONE (11:51)
--- NOTE | 2020-12-09 12:49 | Progress Note ---
Assessment and Plan Patient is a 65-year-old male with peripheral vascular disease status post right BKA has known coronary arterial disease with bypass NSTEMI (non-ST elevated myocardial infarction) CAD (coronary artery disease) Hypertension * Echo 12/07/2020-EF 50 to 55%, mild diastolic dysfunction is present impaired relaxation pattern right ventricular systolic function normal, right ventricle is mildly dilated, left and right atrium are normal in size * LHC 12/07/2020-revealed left main patent LAD proximal 1% patent ESCOBAR to LAD circumflex mid 80% OM1 stent patent SVG to OM 2 has a distal 80% lesion RCA is 100% with normal function we will treat the patient medically 1 patient stabilized will consider outpatient revascularization * Currently on: asa, ticagrelor 90mg PO BID, Imdur 30mg PO QD, metoprolol 12.5mg PO BID, Atherosclerotic PVD with ulceration * Managed per Vascular Anemia * Currently on ferrous sulfate 325mg PO BID Patient has follow up appointment with Dr. Maame Nguyen, [facility], on 12/23/2020 at 3:30pm at our [place] location. Patient seen in conjunction with Dr. Corcoran who agrees with this plan of care. Will continue to follow - Patient Problems (1) Anemia Current Visit: Yes Status: Acute (2) Atherosclerotic PVD with ulceration Current Visit: Yes Status: Acute Qualifiers: Peripheral atherosclerosis location: lower extremity Peripheral atherosclerosis artery type: [place] artery Laterality: right (3) NSTEMI (non-ST elevated myocardial infarction) Current Visit: Yes Status: Acute (4) Status post below knee amputation of right lower extremity Current Visit: Yes Status: Acute (5) Abnormal EKG Current Visit: Yes Status: Chronic (6) CAD (coronary artery disease) Current Visit: Yes Status: Chronic Qualifiers: Coronary Disease-Associated Artery/Lesion type: [place] artery Associated angina: with stable angina (7) Hyperlipemia, mixed Current Visit: Yes Status: Chronic (8) Hypertension Current Visit: Yes Status: Chronic Qualifiers: Hypertension type: primary hypertension Qualified Code(s): I10 - Essential (primary) hypertension Subjective Date of service: 12/09/20 Principal diagnosis: nstemi Interval history: Patient in bed. No complaints sinus 50-60s on monitor Objective Vital Signs Temp Pulse Pulse Resp Resp BP Pulse Ox 12/09/20 10:11 59 L 12/09/20 08:00 97.8 F 60 18 112/77 98 12/09/20 03:29 98.0 F 60 12 99/56 98 12/08/20 23:00 59 L 20 98 12/08/20 22:24 97.5 F L 63 16 125/76 96 12/08/20 22:12 20 12/08/20 19:15 98.3 F 56 L 16 101/59 99 12/08/20 19:00 59 L 12/08/20 15:55 97.8 F 54 L 20 95/61 99 12/08/20 13:06 97.6 F 56 L 18 87/48 98 - Physical Examination General: Appears Well HEENT: Positive: PERRL Neck: Positive: neck supple Cardiac: Positive: Reg Rate and Rhythm Lungs: Positive: Normal Breath Sounds Neuro: Positive: Grossly Intact Abdomen: Positive: Unremarkable Incision: Cardiac Cath Site (clean, dry, intact, no bleedin or hematoma) Extremities: Present: upper extr. pulses, lower extr. pulses, Other (right bka) - Imaging and Cardiology Echo: report reviewed Cardiac cath: report reviewed (lt main patent, lad proximal 100% escobar to lad patent, lcx mid 80% om1 stent patent, distal lcx 100%, svg to om2 mid stent patent, distal 80-%, collateral feeding small pda, rca mid 100%, normal lv function ) - Telemetry EKG Rhythm: Sinus Rhythm - EKG Sinus rhythms and dysrhythmias: sinus rhythm
[2020-12-09] MEDS ORDERED: SODIUM CHLORIDE 0.9% 1000 ML 1,000 ML ONE ×2 (12:50→14:49)
[2020-12-09] MEDS ORDERED: ceFAZolin 1 GM VIAL ONE ×2 (13:23)
[2020-12-09] MEDS ORDERED: SODIUM CHLORIDE 0.9% IRRIG SOLN 2000 ML IR ONE (13:44)
[2020-12-09] MEDS ORDERED: KETOROLAC 30 MG/1 ML INJ ONE (14:49)
[2020-12-09] MEDS ORDERED: ONDANSETRON 4 MG/2 ML INJ ONE (14:49)
[2020-12-09] MEDS ORDERED: SODIUM CHLORIDE 0.9% IRR 1,500 ML BOTTLE IR ONE (14:49)
--- NOTE | 2020-12-09 15:04 | Operative Report ---
Operative Report Operative Report: Date of Procedure: 12/09/2020 Pre-operative Diagnosis: Nonhealing Right Below-Knee Amputation Post-operative Diagnosis: Same Procedure(s): 1. Excisional Debridement f Skin, Muscle, and Soft Tissue of Right Below-Knee Amputation 2. Placement of 20 mg ACell MicroMatrix Standard Particulate and 5 x 5 cm ACell Cytal 2-Layer Wound Matrix 3. Wound VAC Placement (Wound Measures 8 x 6 x 2 cm) Surgeon: Augustine Banuelos M.D. Director Cpg: None Anesthesia: General Endotracheal Anesthesia EBL: 75 mL Counts: Correct Complications: None Condition: Stable Findings: All remaining tissue was healthy and viable without overt signs of infection. Specimen: Skin, muscle, and soft tissue of right below-knee amputation was discarded. Indication: The patient is a 65-year-old male with a history of peripheral vascular disease with the poorly healing right BKA. He was previously taken to the operating room for debridement and placement of a wound matrix however he had a wound VAC change in the wound matrix was inadvertently dislodged as well as having the wound VAC placed on his skin causing ischemia of the lateral portion of his BKA. He is in need of further revision with placement of an additional wound matrix. He was given the risk, benefits, and alternative procedures and consented to the procedure. Description of Procedure: The patient was brought to the operating room and laid in supine position. After timeout was performed his right BKA stump was prepped and draped in normal sterile fashion. His previously placed Ethilon sutures were removed and the entire stump was reopened. Curved Mayos were used to which sharply debride necrotic skin and soft tissue within the wound and then a 10 blade was used to sharply excise the necrotic skin edges in the lateral portion of the incision. All remaining tissue appeared healthy and viable. Pulse irrigation was then used to further debride the remaining tissue. Cautery and direct pressure was used to achieve hemostasis. Once hemostasis was achieved the medial and lateral skin edges were reapproximated in 2 layers using a combination of 0 Vicryl in interrupted fashion in the deep dermal layers and svetlana to reapproximate the skin as well as 2-0 Ethilon in interrupted vertical mattress fashion. The remaining defect in the midportion of the stump had exposed bone. The defect measured approximately 8 x 6 x 2 cm I then placed 20 mg of ACell MicroMatrix Standard Particulate directly over the bone followed by a 5 x 5 cm ACell Cytal 2-Layer Wound Matrix. The wound matrix was secured in position using 3-0 chromic in interrupted fashion. I then placed a piece of Adaptic over the wound matrix and gauze over these incision and then placed a wound VAC over the wound matrix. An adequate seal was obtained and the stump was then dressed with a loosely placed Kerlix roll. The patient's leg was then placed in a knee immobilizer. The patient tolerated the procedure well. All sponge, needle, and instrument counts were correct. The patient was taken to the recovery area in stable condition.
[2020-12-09] MEDS ORDERED: HYDROmorphone 1 MG/1 ML INJ IV PRN ×2 (15:36)
[2020-12-09 17:20] VITALS: BP 137/92
--- NOTE | 2020-12-09 17:56 | Discharge Summary ---
Providers - Providers Date of Admission: 12/04/20 17:19 Date of discharge: 12/09/20 Attending physician: AUGUSTINE THORNE 12/04/20 17:19 Consult to Physician [CONS] Routine Comment: Consulting Provider: FREEMAN CARTER Physician Instructions: Reason For Exam: Medical Management 12/04/20 21:17 Consult to Physician [CONS] Stat Comment: Consulting Provider: HOUSTON PIZANO Physician Instructions: Reason For Exam: EKG changes 12/05/20 10:10 Consult to Case Management [CONS] Routine Services Needed at Discharge: Home Health Services Wound Vac Notified:: case management 12/05/20 16:04 Consult to Case Management [CONS] Routine Services Needed at Discharge: Wound Vac Notified:: CASE MANAGEMENT 12/07/20 10:38 Consult to Cardiac Rehabilitation [CONS] Routine Reason For Exam: Cardiac Rehab Evaluation Hospitalization Reason for admission: Nonhealing Right Below-Knee Amputation Condition: Good Procedures: Date of Procedure: 12/04/2020 Pre-operative Diagnosis: Nonhealing Right Below-Knee Amputation Post-operative Diagnosis: Same Procedure(s): 1. Excisional Debridement of Skin, Muscle, Bone, and Soft Tissue of Right Below-Knee Amputation (Wound Measured 13 x 10 x 6 cm) 2. Placement of 4 x 4 cm Bio DFence Sentry Placental Tissue Membrane (x2) 3. Wound VAC Placement (Wound Measures 5 x 6 x 2 cm) Surgeon: Augustine Thorne M.D. Satellite Dish Technician: Maday Anesthesia: General Endotracheal Anesthesia EBL: 75 mL Counts: Correct Complications: None Condition: Stable Findings: Remaining tissue was healthy and viable with bleeding edges. All remaining muscle reactive to cautery stimulation. The tibia was exposed however it was covered with the tissue membrane. Specimen: Skin, muscle, bone, and soft tissue were discarded from right below- knee amputation were discarded Indication: The patient is a 65-year-old male with a history of peripheral vascular disease who had previous endovascular intervention to salvage his right lower extremity however this failed requiring a right below-knee amputation. He subsequently developed ischemia of the right below-knee amputation with rest pain and is in need of debridement of the amputation versus conversion to an above-knee amputation. He was given the risk, benefits, and alternative procedures and consented to the procedure. Description of Procedure: The patient was brought to the operating room and laid in supine position. After a timeout was performed general endotracheal anesthesia was achieved and his right leg was prepped and draped in normal sterile fashion. A 10 blade was used to sharply excise around the eschar on the posterior flap and curved Mayos were used to sharply debride necrotic tissue and muscle within the wound. The wound was sharply debrided until all necrotic skin, muscle, and soft tissue had been removed from the wound. The the remaining muscle and soft tissue had no overt signs of infection and had bleeding edges. The remaining muscle was interrogated with cautery and found to be viable. The tibia and extended slightly beyond the skin edge so the oscillating saw was used to transect the bone approximately 2 cm proximal to the skin edge. A rasp was then used to smooth the skin edge. Pulse irrigation was then used to further debride the wound and decrease the bacterial load within the wound. Hemostasis within the wound was then achieved with a combination of manual pressure and cautery. Once hemostasis was achieved the lateral and medial edges of the wound were reappro ximated using 2-0 Ethilon in interrupted vertical mattress fashion to reapproximate the skin edges. Once the skin edges were reapproximated there was a remaining defect of approximately 5 x 6 x 2 cm with exposed bone. I placed two 4 cm x 4 cm Bio DFence Sentry Placental Tissue Membrane pieces over the bone to stimulate tissue growth. I then placed a piece of Adaptic over the tissue membrane and then placed a wound VAC over the Adaptic and was able to gain an adequate seal. The patient tolerated the procedure well. All sponge, needle, and instrument counts were correct. The patient was taken to the recovery area in stable condition. 12/07/2020 Cardiac Cath: Patient cardiac cath revealed left main patent LAD proximal 1% patent ESCOBAR to LAD circumflex mid 80% OM1 stent patent SVG to OM 2 has a distal 80% lesion RCA is 100% Date of Procedure: 12/09/2020 Pre-operative Diagnosis: Nonhealing Right Below-Knee Amputation Post-operative Diagnosis: Same Procedure(s): 1. Excisional Debridement f Skin, Muscle, and Soft Tissue of Right Below-Knee Amputation 2. Placement of 20 mg ACell MicroMatrix Standard Particulate and 5 x 5 cm ACell Cytal 2-Layer Wound Matrix 3. Wound VAC Placement (Wound Measures 8 x 6 x 2 cm) Surgeon: Augustine Thorne M.D. Satellite Dish Technician: None Anesthesia: General Endotracheal Anesthesia EBL: 75 mL Counts: Correct Complications: None Condition: Stable Findings: All remaining tissue was healthy and viable without overt signs of infection. Specimen: Skin, muscle, and soft tissue of right below-knee amputation was discarded. Indication: The patient is a 65-year-old male with a history of peripheral vascular disease with the poorly healing right BKA. He was previously taken to the operating room for debridement and placement of a wound matrix however he had a wound VAC change in the wound matrix was inadvertently dislodged as well as having the wound VAC placed on his skin causing ischemia of the lateral portion of his BKA. He is in need of further revision with placement of an additional wound matrix. He was given the risk, benefits, and alternative procedures and consented to the procedure. Description of Procedure: The patient was brought to the operating room and laid in supine position. After timeout was performed his right BKA stump was prepped and draped in normal sterile fashion. His previously placed Ethilon sutures were removed and the entire stump was reopened. Curved Mayos were used to which sharply debride necrotic skin and soft tissue within the wound and then a 10 blade was used to sharply excise the necrotic skin edges in the lateral portion of the incision. All remaining tissue appeared healthy and viable. Pulse irrigation was then used to further debride the remaining tissue. Cautery and direct pressure was used to achieve hemostasis. Once hemostasis was achieved the medial and lateral skin edges were reapproximated in 2 layers using a combination of 0 Vicryl in interrupted fashion in the deep dermal layers and svetlana to reapproximate the skin as well as 2-0 Ethilon in interrupted vertical mattress fashion. The remaining defect in the midportion of the stump had exposed bone. The defect measured approximately 8 x 6 x 2 cm I then placed 20 mg of ACell MicroMatrix Standard Particulate directly over the bone followed by a 5 x 5 cm ACell Cytal 2-Layer Wound Matrix. The wound matrix was secured in position using 3-0 chromic in interrupted fashion. I then placed a piece of Adaptic over the wound matrix and gauze over these incision and then placed a wound VAC over the wound matrix. An adequate seal was obtained and the stump was then dressed with a loosely placed Kerlix roll. The patient's leg was then placed in a knee immobilizer. The patient tolerated the procedure well. All sponge, needle, and instrument counts were correct. The patient was taken to the recovery area in stable condition. Disposition: 01 HOME / SELF CARE / HOMELESS Final Discharge Diagnosis (Prints w/discharge instructions): Nonhealing Right BKA. NSTEMI - Discharge Diagnoses (1) Anemia Status: Acute Qualifiers: Anemia type: other cause Other causes of anemia: chronic disease, other Qualified Code(s): D63.8 - Anemia in other chronic diseases classified elsewhere (2) Atherosclerotic PVD with ulceration Status: Acute Qualifiers: Peripheral atherosclerosis location: lower extremity Peripheral atherosclerosis artery type: [place] artery Laterality: right (3) NSTEMI (non-ST elevated myocardial infarction) Status: Acute Core Measure Documentation - Palliative Care Palliative Care/ Comfort Measures: Not Applicable - Core Measures Any of the following diagnoses?: acute NM - Acute NM Discharge Requirements Aspirin at discharge: Yes CEDRICK/ARB for LVSD if EF <40%: Not Applicable Reason for no CEDRICK/ARB: Medical contraindication Beta lula at discharge: Yes Statin for LDL = or >100 mg/dl on DC: Yes Exam - Constitutional Vitals: Temp Pulse Resp BP Pulse Ox 97.6 F 60 16 137/92 100 12/09/20 16:30 12/09/20 16:30 12/09/20 16:30 12/09/20 16:30 12/09/20 16:30 General appearance: Present: no acute distress - Respiratory Respiratory effort: normal - Extremities Extremities: abnormal (right stump wound vac with adequate seal) Plan Wound: per wound nurse instructions (Please place Adaptic over the wound matrix for the 1st 2 weeks.), other (Do not remove the wound VAC for at least 7 days.) Follow up with: Aida PICKARD [Other] - 7 Days AUGUSTINE THORNE MD [Staff Physician] - 14 Days JATINDER PAYNE MD [Staff Physician] - 14 Days Prescriptions: Clindamycin [Clindamycin CAP] 300 mg PO Q8H #15 cap Ferrous Sulfate [Feosol 325 MG tab] 325 mg PO BID #60 tablet Isosorbide Dinitrate [Isordil] 10 mg PO BID #60 tablet Metoprolol [Lopressor TAB] 12.5 mg PO BID #180 tablet Oxycodone HCl/Acetaminophen [Primlev 7.5-300 mg] 1 each PO Q6H PRN #40 tablet PRN Reason: Pain Ascorbic Acid [Vitamin C] 500 mg PO BID #60 tablet
== END 2020-12-09 21:44 | disposition home health service (06) | DRG 856 ==
LOC: OR 10:55 → 4A 17:19
PROVIDERS: ADMIT Surgery Vascular Surgery; ATTEND Surgery Vascular Surgery
PROC: 0QBG0ZZ Excision of Right Tibia, Open Approach (ICD-10-PCS; principal; 2020-12-04)
PROC: 4A023N7 Measurement of Cardiac Sampling and Pressure, Left Heart, Percutaneous Approach (ICD-10-PCS; 2020-12-07)
PROC: B2111ZZ Fluoroscopy of Multiple Coronary Arteries using Low Osmolar Contrast (ICD-10-PCS; 2020-12-07)
PROC: B2121ZZ Fluoroscopy of Single Coronary Artery Bypass Graft using Low Osmolar Contrast (ICD-10-PCS; 2020-12-07)
PROC: B2151ZZ Fluoroscopy of Left Heart using Low Osmolar Contrast (ICD-10-PCS; 2020-12-07)
PROC: 0KBS0ZZ Excision of Right Lower Leg Muscle, Open Approach (ICD-10-PCS; 2020-12-09)
DX: T81.41XA Infection following a procedure, superficial incisional surgical site, initial encounter (principal); I21.4 Non-ST elevation (NSTEMI) myocardial infarction; I50.33 Acute on chronic diastolic (congestive) heart failure; T82.855A Stenosis of coronary artery stent, initial encounter; L97.919 Non-pressure chronic ulcer of unspecified part of right lower leg with unspecified severity; Z88.8 Allergy status to other drugs, medicaments and biological substances; Y84.0 Cardiac catheterization as the cause of abnormal reaction of the patient, or of later complication, without mention of misadventure at the time of the procedure; Y92.89 Other specified places as the place of occurrence of the external cause; Z87.891 Personal history of nicotine dependence; I25.10 Atherosclerotic heart disease of native coronary artery without angina pectoris; I73.9 Peripheral vascular disease, unspecified; Y83.5 Amputation of limb(s) as the cause of abnormal reaction of the patient, or of later complication, without mention of misadventure at the time of the procedure; Z79.82 Long term (current) use of aspirin; Z79.01 Long term (current) use of anticoagulants; E78.2 Mixed hyperlipidemia; D64.9 Anemia, unspecified; I11.0 Hypertensive heart disease with heart failure
CPT/HCPCS: 36415; 80048; 80061; 82962; 84484; 85014; 85018; 85025; 85027; 85049; 85520; 85610; 85730; 86850; 86900; 86901; 86920; 88304; 93005; 93306; 93459; 94760; 99406; G0378; J0690; J1170; J1644; J1650; J1885; J2250; J2405; J2704; J3010; J7030; J7040; J7120; Q4116; Q4140; Q9967

== ENCOUNTER 2021-02-19 08:36 | Day surgery (SDC) | payer MEDICARE ==
[~2021-02-19 08:36] MED LIST changes: -ACETAMINOPHEN 500 MG TAB PO SCH; -LACTATED RINGERS 1,000 ML IV SCH; -MIDAZOLAM 2 MG/2 ML INJ IV NR; -SODIUM CHLORIDE 0.9% 1000 ML 1,000 ML IV SCH; +ceFAZolin/STERILE WATER 2 GM/20 ML SYRINGE IV NR; -ceFAZolin/Water 2 GM/20 ML 2 GM/20 ML SYRINGE IV NR
[2021-02-19] MEDS ORDERED: ONDANSETRON 4 MG/2 ML INJ IV PRN (09:10)
[2021-02-19] MEDS ORDERED: HYDROmorphone 1 MG/1 ML INJ IV PRN ×2 (09:10)
--- NOTE | 2021-02-19 09:10 | Anesthesia Day of Surgery ---
Anesthesia Day of Surgery - Day of Surgery Patient Examined: Yes Patient H&P Reviewed: Yes Patient is NPO: Yes
[2021-02-19] MEDS ORDERED: LACTATED RINGERS 1,000 ML IV SCH (09:15)
[2021-02-19] MEDS ORDERED: MIDAZOLAM 2 MG/2 ML INJ IV NR (10:00)
[2021-02-19 10:11] LABS: Hematocrit 35.4 % (35.5-45.6); Mean Corpuscular HGB Conc 31 % (32-34); Mean Corpuscular Volume 81 fl (84-94); Platelet Count 209 K/mm3 (140-440); Red Blood Count 4.37 M/mm3 (3.65-5.03)
[2021-02-19 10:31] LABS: Blood Urea Nitrogen 11 mg/dL (9-20); Calcium 8.8 mg/dL (8.4-10.2); Hemolysis Index 19
[2021-02-19 10:44] LABS: BUN/Creatinine Ratio 22
[2021-02-19 10:57] LABS: Red Cell Distribution Width 21.8 % (13.2-15.2)
[2021-02-19] MEDS ORDERED: HYDROmorphone 1 MG/1 ML INJ ONE (11:11)
[2021-02-19] MEDS ORDERED: LIDOCAINE MPF (2%) 20 MG/1 ML VIAL 5 ML ONE (11:11)
[2021-02-19] MEDS ORDERED: propofoL 200 MG/20 ML VIAL IV ONE (11:11)
--- NOTE | 2021-02-19 11:12 | Short Stay Summary ---
Short Stay Documentation Date of service: 02/19/21 Narrative H&P: The patient is a 65-year-old male with a history of coronary artery disease and peripheral vascular disease who has a history of a right below-knee amputation. Initially the amputation was failing with a necrotic posterior flap. He underwent revision of the below-knee amputation with excisional debridement of the amputation site and placement of a wound VAC. Since that time the wound has been healing well and has near totally healed however he has exposed tibia. He is in need of revision of the amputation with excisional debridement of the tibia as well as surrounding soft tissue with placement of a wound matrix. He is otherwise doing well has no additional complaints at this time. - History Past Medical History: CAD, hypertension, hyperlipidemia, PVD Past Surgical History: CABG, PTCA, Other (Right below-knee amputation, excisional debridement of right bone amputation, multiple endovascular interventions of bilateral lower extremities) Social history: - Allergies and Medications Current Medications: Allergies procaine [From Novocain] Allergy (Verified 12/03/20 15:52) Blacks out heparin Adverse Reaction (Verified 02/15/21 15:58) BLOOD CLOTS Home Medications Medication Instructions Recorded Confirmed Last Taken Type Aspirin [Adult Aspirin] 81 mg PO DAILY 12/03/20 02/18/21 02/17/21 04:00 History AtorvaSTATin [Lipitor] 40 mg PO QHS 12/03/20 02/18/21 02/16/21 History Ticagrelor [Brilinta] 90 mg PO BID 12/03/20 02/18/21 02/17/21 04:00 History Gabapentin 300 mg PO BID 12/04/20 02/18/21 02/16/21 History Isosorbide Dinitrate [Isordil] 10 mg PO BID #60 tablet 12/09/20 02/18/21 02/17/21 04:00 Rx Oxycodone HCl/Acetaminophen 1 each PO Q6H PRN #40 tablet 12/09/20 02/18/21 02/16/21 Rx [Primlev 7.5-300 mg] Apixaban [Eliquis] 5 mg PO BID 02/15/21 02/18/21 02/17/21 04:00 History Metoprolol [Lopressor TAB] 25 mg PO BID 02/15/21 02/18/21 02/17/21 04:00 History Pantoprazole [Protonix] 40 mg PO QDAY 02/15/21 02/18/21 02/17/21 04:00 History Venlafaxine [Effexor 37.5mg tab] 37.5 mg PO QDAY 02/15/21 02/18/21 02/17/21 04:00 History Active Medications Cefazolin Sodium (Cefazolin/Sterile Water 2 Gm/20 Ml Syringe) 2 gm IV PREOP NR Stop: 02/19/21 23:59 Hydromorphone HCl (Hydromorphone 1 Mg/1 Ml Inj) 0.25 mg IV Q10MIN PRN PRN Reason: Pain, Moderate (4-6) Hydromorphone HCl (Hydromorphone 1 Mg/1 Ml Inj) 0.5 mg IV Q10MIN PRN PRN Reason: Pain , Severe (7-10) Lactated Ringer's (Lactated Ringers) 1,000 mls @ 75 mls/hr IV DIRECT SUSU Midazolam HCl (Midazolam 2 Mg/2 Ml Inj) 2 mg IV PREOP NR Stop: 02/19/21 23:59 Ondansetron HCl (Ondansetron 4 Mg/2 Ml Inj) 4 mg IV ONCE PRN PRN Reason: Nausea And Vomiting - Physical exam General appearance: no acute distress Lungs: Normal air movement Heart: Regular rate Gastrointestinal: normal Male Genitourinary: deferred Rectal Exam: deferred Extremities: normal temperature (Left lower extremity is warm and well- perfused), abnormal (Right below-knee amputation with exposed tibia, surrounding tissue on the anterior surface of the amputation with granulating tissue and no evidence of infection) - Brief post op/procedure progress note Date of procedure: 02/19/21 Pre-op diagnosis: Exposed Tibia of Right Below-Knee Amputation Post-op diagnosis: same Procedure: 1. Excisional Debridement of Tibia of Right Below-Knee Amputation 2. Placement of 5 x 5 cm [employer] bio-ConneKt Wound Matrix (Wound Measures 4 x 4 x 0.3 cm) Anesthesia: GETA Surgeon: KELLEE THORNE Estimated blood loss: minimal Pathology: list (Portions of right tibia were discarded) Specimen disposition: discarded Condition: stable - Disposition Condition at discharge: Good Disposition: 01 HOME / SELF CARE / HOMELESS Short Stay Discharge Plan Wound: per your surgeon's advice (Leave dressing in place until follow-up with vascular surgeon.) Follow up with: KELLEE THORNE MD [Staff Physician] - 03/04/21 (Call the office to setup/confirm appointment) Prescriptions: Oxycodone HCl/Acetaminophen [Percocet 7.5/325 mg] 1 each PO Q6HR PRN #40 tablet PRN Reason: Pain Clopidogrel [Plavix] 75 mg PO QDAY #90 tablet
[2021-02-19] MEDS ORDERED: SODIUM CHLORIDE 0.9% IRR 1,500 ML BOTTLE IR ONE (12:03)
[2021-02-19] MEDS ORDERED: LIDOCAINE (1%) 10 MG/1 ML VIAL 20 ML MDV INFILTRATI ONE (12:03)
[2021-02-19] MEDS ORDERED: ONDANSETRON 4 MG/2 ML INJ ONE (12:31)
--- NOTE | 2021-02-19 12:40 | Operative Report ---
Operative Report Operative Report: Date of Procedure: 02/19/2021 Pre-operative Diagnosis: Exposed Bone of Right Below-Knee Amputation Post-operative Diagnosis: Same Procedure(s): 1. Excisional Debridement of Tibia of Right Below-Knee Amputation 2. Placement of 5 x 5 cm [employer] bio-ConneKt Wound Matrix (Wound Measures 4 x 4 x 0.3 cm) Surgeon: Augustine Banuelos M.D. Identification And Records Commander: None Anesthesia: General Endotracheal Anesthesia EBL: Minimal Counts: Correct Complications: None Condition: Stable Findings: All remaining tissue was healthy and viable. Specimen: Portions of right tibia were discarded. Indication: The patient is a 65-year-old male with a history of peripheral vascular disease who underwent a right below-knee amputation that has undergone debridement and healing with wound VAC. He has exposed tibia and requires debridement with placement of the wound matrix to cover the exposed bone. He has been given the risk, benefits, alternative procedures and consented to the procedure. Description of Procedure: The patient was brought to the operating room and laid in supine position. After timeout was performed his right leg was prepped and draped in normal sterile fashion. An oscillating saw was then used to transect the exposed tibia, flush with the surrounding skin and soft tissue. A rasp was then used to smooth the edges. The wound was then irrigated and cautery was used to achieve hemostasis. Once hemostasis was achieved a 5 x 5 cm [employer] bio-ConneKt Wound Matrix was chosen to cover the exposed bone. This was opened on the back table and hydrated in normal saline for approximately 2 minutes. Once the wound matrix was well hydrated it was placed over the wound and secured in place using 2-0 Vicryl in interrupted fashion. Once the wound edges have been adequately secured the wound was dressed with a piece of Adaptic, a fluff, a Kerlix roll, and a 4 inch Ran bandage. The patient tolerated the procedure well. All sponge, needle, and instrument counts were correct. The patient was taken to the recovery area in stable condition.
[2021-02-19 15:42] VITALS: BP 114/68
--- NOTE | 2021-02-19 16:41 | Post Anesthesia Evaluation ---
- Post Anesthesia Evaluation Patient Participated: Yes Airway Patent: Yes Stable Respiratory Function: Yes Nausea/Vomiting: No Temp > 96.8F: Yes Pain Manageable: Yes Adequeate Hydration: Yes Anesthesia Complications: No Block Receding Appropriately: Not Applicable Patient on Ventilator: No
== END 2021-02-19 13:40 | disposition home or self-care (01) ==
LOC: OR 08:36
PROVIDERS: ATTEND Surgery Vascular Surgery
DX: M89.9 Disorder of bone, unspecified (principal); S81.801A Unspecified open wound, right lower leg, initial encounter; I25.10 Atherosclerotic heart disease of native coronary artery without angina pectoris; I11.0 Hypertensive heart disease with heart failure; I50.9 Heart failure, unspecified; E78.00 Pure hypercholesterolemia, unspecified; F32.9 Major depressive disorder, single episode, unspecified; D64.9 Anemia, unspecified; Z87.891 Personal history of nicotine dependence; Z79.82 Long term (current) use of aspirin; Z79.899 Other long term (current) drug therapy; Z98.890 Other specified postprocedural states; Z88.8 Allergy status to other drugs, medicaments and biological substances; X58.XXXA Exposure to other specified factors, initial encounter; Y93.89 Activity, other specified; Y92.89 Other specified places as the place of occurrence of the external cause; Y99.8 Other external cause status
CPT/HCPCS: 11043; 15271; 36415; 80048; 85027; J0690; J1170; J2250; J2405; J2704; J3490; J7120; Q4161

== ENCOUNTER 2021-05-25 08:46 | Day surgery (SDC) | payer MEDICARE ==
[2021-05-25] MEDS ORDERED: ceFAZolin/STERILE WATER 2 GM/20 ML SYRINGE IV NR (10:00)
[2021-05-25] MEDS ORDERED: SODIUM CHLORIDE 0.9% 500 ML 500 ML IV SCH (10:00)
[2021-05-25 10:10] LABS: Hematocrit 41.8 % (35.5-45.6); Hemoglobin 13.3 gm/dl (11.8-15.2); Mean Corpuscular HGB Conc 32 % (32-34); Mean Corpuscular Volume 86 fl (84-94); Platelet Count 173 K/mm3 (140-440); Red Blood Count 4.88 M/mm3 (3.65-5.03)
[2021-05-25 10:17] LABS: BUN/Creatinine Ratio 13; Blood Urea Nitrogen 10 mg/dL (9-20); Calcium 9.5 mg/dL (8.4-10.2); Hemolysis Index 4
[2021-05-25 10:55] LABS: INR 0.86 (0.87-1.13)
[2021-05-25] MEDS ORDERED: SODIUM CHLORIDE 0.9% 100 ML ONE (13:01)
[2021-05-25] MEDS ORDERED: SODIUM CHLORIDE 0.9% 500 ML 1,000 ML ONE (13:02)
[2021-05-25] MEDS ORDERED: BIVALIRUDIN 250 MG INJ IV ONE ×3 (13:02→14:14)
[2021-05-25] MEDS ORDERED: ceFAZolin/Water 2 GM/20 ML 2 GM/20 ML SYRINGE IV ONE (13:02)
[2021-05-25] MEDS ORDERED: WATER FOR INJ Sterile (PF) 10 ML ONE (13:06)
[2021-05-25] MEDS ORDERED: HEPARIN 10,000 UNITS/10 ML VIAL ONE (13:11)
[2021-05-25] MEDS ORDERED: NITROGLYCERIN SYRINGE 0 ML ONE (13:12)
[2021-05-25] MEDS ORDERED: SODIUM CHLORIDE 0.9% 500 ML 500 ML ONE (13:16)
[2021-05-25] MEDS: fentaNYL 100 MCG/2 ML INJ ONE ×3 (13:30→14:40)
[2021-05-25] MEDS: MIDAZOLAM 2 MG/2 ML INJ ONE ×3 (13:30→14:40)
[2021-05-25] MEDS: LIDOCAINE (2%) 20 MG/1 ML VIAL 20 ML MDV INFILTRATI ONE ×2 (13:31→13:50)
[2021-05-25] MEDS ORDERED: ONDANSETRON 4 MG/2 ML INJ ONE (13:47)
[2021-05-25] MEDS ORDERED: SODIUM CHLORIDE 0.9% 50 ML ONE (13:56)
[2021-05-25] MEDS ORDERED: MIDAZOLAM 2 MG/2 ML INJ IV ONE (14:18)
[2021-05-25] MEDS ORDERED: fentaNYL 100 MCG/2 ML INJ IV ONE ×3 (14:18→15:07)
[2021-05-25] MEDS ORDERED: NITROGLYCERIN SYRINGE 3 ML ONE (14:21)
[2021-05-25] MEDS ORDERED: NITROGLYCERIN 600 MCG/3 ML SYRINGE ART-SHEATH ONE (14:21)
[2021-05-25] MEDS ORDERED: fentaNYL 100 MCG/2 ML INJ ONE (14:41)
[2021-05-25] MEDS ORDERED: MIDAZOLAM 2 MG/2 ML INJ ONE (14:41)
--- NOTE | 2021-05-25 15:40 | Short Stay Summary ---
Short Stay Documentation Date of service: 05/25/21 Narrative H&P: See H&P - History H&P: obtained from office - Allergies and Medications Current Medications: Allergies procaine [From Novocain] Allergy (Verified 12/03/20 15:52) Blacks out heparin Adverse Reaction (Verified 02/15/21 15:58) BLOOD CLOTS Home Medications Medication Instructions Recorded Confirmed Last Taken Type Aspirin [Adult Aspirin] 81 mg PO DAILY 12/03/20 05/25/21 05/24/21 History 1 TAB AtorvaSTATin [Lipitor] 40 mg PO QHS 12/03/20 05/25/21 05/24/21 History 1 TAB Isosorbide Dinitrate [Isordil] 10 mg PO BID #60 tablet 12/09/20 05/25/21 05/24/21 Rx 2 TAB Oxycodone HCl/Acetaminophen 1 each PO Q6H PRN #40 tablet 12/09/20 05/25/21 02/16/21 Rx [Primlev 7.5-300 mg] Apixaban [Eliquis] 5 mg PO BID 02/15/21 05/25/21 05/24/21 History 2 TAB Metoprolol [Lopressor TAB] 25 mg PO BID 02/15/21 05/25/21 05/24/21 History 1 TAB Pantoprazole [Protonix TAB] 40 mg PO QDAY 02/15/21 05/25/21 02/17/21 04:00 History Venlafaxine [Effexor 37.5mg tab] 37.5 mg PO QDAY 02/15/21 05/25/21 05/24/21 History 1 TAB Clopidogrel [Plavix] 75 mg PO QDAY #90 tablet 02/19/21 05/25/21 05/24/21 Rx 1 TAB Oxycodone HCl/Acetaminophen 1 each PO Q6HR PRN #40 tablet 02/19/21 05/25/21 Unknown Rx [Percocet 7.5/325 mg] Ranolazine ER [Ranexa ER] 500 mg PO BID 05/25/21 05/25/21 Unknown History Active Medications Cefazolin Sodium (Cefazolin/Sterile Water 2 Gm/20 Ml Syringe) 2 gm IV PREOP NR Stop: 05/25/21 18:00 Sodium Chloride (Nacl 0.9% 500 Ml) 500 mls @ 50 mls/hr IV DIRECT SUSU - Brief post op/procedure progress note Date of procedure: 05/25/21 Pre-op diagnosis: Peripheral Vascular Disease with Left Foot Rest Pain Post-op diagnosis: same Procedure: 1. Ultrasound-Guided Access of Right Common Femoral Artery 2. Diagnostic Aortogram (The Patient Had a Clinical Change) 3. Diagnostic Left Lower Extremity Angiogram (The Patient Had a Clinical Change) 4. Angioplasty and Stent of Left Left Anterior Tibial Artery with 3.0 x 150 Sergio Balloon in the Dorsalis Pedis Artery, 4.0 x 150 IN.PACT Drug-Coated Balloon in the Proximal Anterior Tibial Artery and a 4.0 x 38 mm Medtronic Resolute [place] Drug-Eluting Balloon Expandable Stent 5. Secondary Percutaneous Embolectomy of Left Anterior Tibial Artery with 6 Ivorian MP Guide Catheter 6. Closure of Right Femoral Arteriotomy with Perclose ProGlide Closure Device 7. Radiologic Supervision with Interpretation 8. Monitored Moderate Sedation (Total Anesthesia Time: 83 Minutes) Anesthesia: local, other (Monitored Moderate Sedation) Surgeon: KELLEE THORNE Estimated blood loss: minimal Pathology: none Condition: stable - Disposition Condition at discharge: Good Short Stay Discharge Plan Activity: other (No strenuous activity for 24-hour) Wound: remove dressing (in 48-hour) Follow up with: KELLEE THORNE MD [Staff Physician] - 14 Days
--- NOTE | 2021-05-25 15:51 | Operative Report ---
Operative Report Operative Report: Date of Procedure: 05/25/2021 Pre-operative Diagnosis: Peripheral Vascular Disease with Left Lower Extremity Ischemia Post-operative Diagnosis: Same Procedure(s): 1. Ultrasound-Guided Access of Right Common Femoral Artery 2. Diagnostic Aortogram (The Patient Had a Clinical Change) 3. Diagnostic Left Lower Extremity Angiogram (The Patient Had a Clinical Change) 4. Angioplasty and Stent of Left Left Anterior Tibial Artery with 3.0 x 150 Sergio Balloon in the Dorsalis Pedis Artery, 4.0 x 150 IN.PACT Drug-Coated Balloon in the Proximal Anterior Tibial Artery and a 4.0 x 38 mm Medtronic Resolute [place] Drug-Eluting Balloon Expandable Stent 5. Secondary Percutaneous Embolectomy of Left Anterior Tibial Artery with 6 Tristanian MP Guide Catheter 6. Closure of Right Femoral Arteriotomy with Perclose ProGlide Closure Device 7. Radiologic Supervision with Interpretation 8. Monitored Moderate Sedation (Total Anesthesia Time: 83 Minutes) Surgeon: Augustine Banuelos M.D. Tennis Coach: None Anesthesia: Local/Monitored Moderate Sedation Total Anesthesia Time: 83 Minutes EBL: Minimal Counts: Correct Complications: None Condition: Stable Specimen: None Indication: The patient is a 65-year-old male with a history of coronary artery disease and peripheral vascular disease who has had previous intervention on his left lower extremity as well as a right below-knee amputation. He presents with complaints of numbness of the left foot as well as cyanotic changes. He has nonpalpable pedal pulses and is in need of a diagnostic angiogram with possible intervention. He was given the risk, benefits, and alternative procedures and consented to the procedure. Angiographic Findings: The diagnostic aortogram revealed the aorta was heavily calcified but patent without aneurysmal dilatation or flow-limiting stenosis. The left lower extremity angiogram revealed that the left common iliac artery was ectatic without evidence of aneurysmal dilatation or flow-limiting stenosis. The hypogastric artery was patent without evidence of flow-limiting stenosis. The external iliac artery and common femoral artery were patent without evidence of flow-limiting stenosis. The profunda artery, SFA, and popliteal artery were all patent without evidence of flow-limiting stenosis. The tibioperoneal trunk was occluded as well as the posterior tibial artery without evidence of reconstitution. The peroneal artery reconstituted in the mid calf and was patent throughout the remainder of its course without significant flow-limiting stenosis. There was approximately 85% stenosis in a short segment of the proximal anterior tibial artery however the remainder of the artery appeared to be patent without significant flow-limiting stenosis. There was a short segment occlusion in the proximal dorsalis pedis artery and the remainder of the artery was atretic with minimal flow noted within the foot. After intervention the anterior tibial artery was patent with less than 10% residual stenosis. The dorsalis pedis artery was patent with less than 10% residual stenosis in the proximal segment and approximately 20% residual stenosis in the mid and distal segments. There was a small amount of embolic debris in the distal foot however this did not appear to be flow-limiting. And it was multiple collaterals filling the digital vessels. Description of Procedure: The patient was brought to the [facility] and laid in supine position. After timeout was performed his right groin was prepped and draped in normal sterile fashion. Ultrasound was used to identify the right common femoral artery and confirm patency. Once patency was confirmed the overlying skin and soft tissue was anesthetized with lidocaine. An 11 blade was used to make a small stab incision and then a curved hemostat was used with ultrasound guidance to bluntly dissect down to the anterior surface of the right common femoral artery. A 21- gauge micropuncture needle was used ultrasound guidance into the right common femoral artery and a 0.018 micropuncture wire was advanced to the artery. The needle was removed and a micropuncture sheath was placed by Seldinger technique. The dilator and wire were removed and a 0.035 Bentson wire was advanced into the aorta under fluoroscopy. The micropuncture sheath was then exchanged for 5 Tristanian sheath by Seldinger technique. An Omni Flush catheter was then advanced into the aorta and after removing the wire a diagnostic aortogram was performed with the previously described findings. The wire was reinserted and the wire and catheter were advanced up and over the bifurcation and a left lower extremity angiogram was performed with the previously described findings. I advanced the Bentson wire to the distal popliteal artery and then exchanged to 5 Tristanian sheath for a 6 Tristanian 90 cm destination sheath. At this point the patient was systemically heparinized with a bolus of Angiomax and then maintained on a Angiomax drip, throughout the case, for anticoagulation. I then used a Navicross catheter and 0.018 V18 wire and was able to traverse the stenosis within the proximal anterior tibial artery as well as the occlusion in the dorsalis pedis artery and advanced the wire through the pedal arch and into the distal posterior tibial artery. I remove the Navicross catheter and advanced a 3.0 x 150 Sergio Balloon into the dorsalis pedis artery and performed angioplasty which resulted in a significant amount of spasm that was broken with 400 mcg of nitroglycerin eventually revealing less than 10% residual stenosis. I then performed angioplasty of the stenosis within the proximal anterior tibial artery with a 4.0 x 150 IN.PACT drug-coated balloon which revealed that this was actually thrombus and not the stenosis in this showered the distal anterior tibial artery as well as some emboli into the dorsalis pedis artery. I was able to retrieve the majority of the emboli within the dorsalis pedis artery with the Navicross catheter and the remainder of the thrombus within the anterior tibial artery with a 6 Tristanian multipurpose guide catheter. The follow-up angiogram of the anterior tibial artery revealed what appeared to be a dissection that was somewhat flow-limiting in the anterior tibial artery so I exchanged the V18 wire for a 0.014 Choice PT wire and then stented the area with a 4.0 x 38 mm Medtronic Resolute [place] Drug-Eluting Balloon Expandable Stent which resulted in less than 10% residual stenosis and brisk flow of contrast to the anterior tibial artery and into the foot. At this point I removed the Choice PT wire and pulled the sheath back into the right external iliac artery. I advanced the Bentson wire into the aorta and remove the sheath and then used a Perclose ProGlide device to close the right femoral arteriotomy. A sterile dressing was then applied to the right groin entry site and the patient was transported to the recovery area in stable condition.
[2021-05-25 16:39] VITALS: BP 118/65
== END 2021-05-25 16:55 | disposition home or self-care (01) ==
LOC: CATH 08:46 → CATHLABREC 08:46
PROVIDERS: ATTEND Surgery Vascular Surgery
DX: I70.222 Atherosclerosis of native arteries of extremities with rest pain, left leg (principal); E78.2 Mixed hyperlipidemia; I25.2 Old myocardial infarction; I25.10 Atherosclerotic heart disease of native coronary artery without angina pectoris; I11.0 Hypertensive heart disease with heart failure; I50.9 Heart failure, unspecified; F32.9 Major depressive disorder, single episode, unspecified; F41.9 Anxiety disorder, unspecified; Z98.890 Other specified postprocedural states; Z80.8 Family history of malignant neoplasm of other organs or systems; Z88.8 Allergy status to other drugs, medicaments and biological substances; Z79.899 Other long term (current) drug therapy; Z79.82 Long term (current) use of aspirin; Z89.511 Acquired absence of right leg below knee; Z98.61 Coronary angioplasty status; Z90.49 Acquired absence of other specified parts of digestive tract; Z72.89 Other problems related to lifestyle; Z82.49 Family history of ischemic heart disease and other diseases of the circulatory system
CPT/HCPCS: 36415; 37186; 37230; 75625; 75710; 76937; 80048; 85027; 85610; 99156; 99157; C1725; C1760; C1769; C1874; C1887; C2623; J0583; J0690; J1815; J2250; J2405; J3010; J3490; J7040; J1644; Q9967

== ENCOUNTER 2021-06-29 09:17 | Day surgery (SDC) | payer MEDICARE ==
[~2021-06-29 09:17] MED LIST changes: -ceFAZolin/STERILE WATER 2 GM/20 ML SYRINGE IV NR; +ceFAZolin/Water 2 GM/20 ML 2 GM/20 ML SYRINGE IV NR
[2021-06-29] MEDS ORDERED: LACTATED RINGERS 1,000 ML IV SCH (09:34)
[2021-06-29 09:45] LABS: Hematocrit 42.1 % (35.5-45.6); Hemoglobin 13.6 gm/dl (11.8-15.2); Mean Corpuscular HGB Conc 32 % (32-34); Mean Corpuscular Volume 90 fl (84-94); Platelet Count 157 K/mm3 (140-440); Red Blood Count 4.65 M/mm3 (3.65-5.03)
[2021-06-29 10:05] LABS: Blood Urea Nitrogen 11 mg/dL (9-20); Calcium 9.5 mg/dL (8.4-10.2); Hemolysis Index 7
[2021-06-29] MEDS ORDERED: LACTATED RINGERS 1,000 ML ONE (10:16)
[2021-06-29 10:19] LABS: BUN/Creatinine Ratio 16
[2021-06-29] MEDS ORDERED: ONDANSETRON 4 MG/2 ML INJ IV PRN (12:11)
[2021-06-29] MEDS ORDERED: HYDROmorphone 1 MG/1 ML INJ IV PRN ×2 (12:11)
--- NOTE | 2021-06-29 12:11 | Anesthesia Day of Surgery ---
Anesthesia Day of Surgery - Day of Surgery Patient Examined: Yes Patient H&P Reviewed: Yes Patient is NPO: Yes
[2021-06-29] MEDS ORDERED: SODIUM CHLORIDE 0.9% 1000 ML 1,000 ML IV SCH (12:15)
--- NOTE | 2021-06-29 12:15 | Anesthesia Consultation ---
Anesthesia Consult and Med Hx Date of service: 06/29/21 - Airway Anesthetic Teeth Evaluation: Good ROM Head & Neck: Adequate Mental/Hyoid Distance: Adequate Mallampati Class: Class III Intubation Access Assessment: Probably Good - Pre-Operative Health Status ASA Pre-Surgery Classification: ASA4 Proposed Anesthetic Plan: General - Pre-Anesthesia Comment Pre-Anesthesia Comments: K-5.2 - Pulmonary Hx Smoking: Yes Hx Asthma: No Hx Respiratory Symptoms: No COPD: No Hx Sleep Apnea: No - Cardiovascular System Hx Hypertension: Yes Hx Coronary Artery Disease: Yes Hx Heart Attack/AMI: Yes (Apr 2021) Hx Percutaneous Transluminal Coronary Angioplasty (PTCA): Yes Hx Cardia Arrhythmia: No (Hx LV thrombus) Hx Peripheral Vascular Disease: Yes (PERIPHERAL ARTERY DISEASE) - Central Nervous System CVA: No Hx Psychiatric Problems: Yes - Gastrointestinal Hx Gastroesophageal Reflux Disease: No - Endocrine Hx Renal Disease: No Hx Liver Disease: No Hx Insulin Dependent Diabetes: No Hx Non-Insulin Dependent Diabetes: No Hx Thyroid Disease: No - Hematic Hx Anemia: No - Other Systems Hx Alcohol Use: No Hx Substance Use: No Hx Cancer: No Hx Obesity: No - Additional Comments Anesthesia Medical History Comments: Here [id number] and [id number]
[2021-06-29] MEDS ORDERED: MIDAZOLAM 2 MG/2 ML INJ IV NR (13:00)
[2021-06-29] MEDS ORDERED: BUPIVACAINE-EPINEPHRINE/PF 0.25%-1:200,000 (30 ML) VIAL INFILTRATI ONE (13:30)
[2021-06-29] MEDS ORDERED: LIDOCAINE MPF (2%) 20 MG/1 ML VIAL 5 ML ONE (13:38)
[2021-06-29] MEDS ORDERED: propofoL 200 MG/20 ML VIAL IV ONE (13:38)
--- NOTE | 2021-06-29 13:47 | Short Stay Summary ---
Short Stay Documentation Date of service: 06/29/21 Narrative H&P: See H&P - History H&P: obtained from office - Allergies and Medications Current Medications: Allergies procaine [From Novocain] Allergy (Verified 06/23/21 16:08) Blacks out heparin Adverse Reaction (Verified 06/23/21 16:08) BLOOD CLOTS Home Medications Medication Instructions Recorded Confirmed Last Taken Type Aspirin [Adult Aspirin] 81 mg PO DAILY 12/03/20 06/23/21 06/27/21 History AtorvaSTATin [Lipitor] 40 mg PO QHS 12/03/20 06/23/21 06/28/21 History Isosorbide Dinitrate [Isordil] 10 mg PO BID #60 tablet 12/09/20 06/23/21 06/28/21 Rx Apixaban [Eliquis] 5 mg PO BID 02/15/21 06/23/21 06/27/21 History Metoprolol [Lopressor TAB] 25 mg PO BID 02/15/21 06/29/21 06/29/21 History Venlafaxine [Effexor 37.5mg tab] 37.5 mg PO QDAY 02/15/21 06/23/21 05/24/21 History 1 TAB Clopidogrel [Plavix] 75 mg PO QDAY #90 tablet 02/19/21 06/23/21 06/27/21 Rx Ranolazine ER [Ranexa ER] 500 mg PO BID 05/25/21 06/23/21 06/28/21 History Vitamin E (Dl,Tocopheryl Acet) 180 mg PO DAILY 06/23/21 06/23/21 06/29/21 History [Vitamin E] Active Medications Hydromorphone HCl (Hydromorphone 1 Mg/1 Ml Inj) 0.25 mg IV Q10MIN PRN PRN Reason: Pain, Moderate (4-6) Stop: 06/30/21 12:10 Hydromorphone HCl (Hydromorphone 1 Mg/1 Ml Inj) 0.5 mg IV Q10MIN PRN PRN Reason: Pain , Severe (7-10) Stop: 06/30/21 12:10 Cefazolin Sodium (Ancef/Sterile Water 2 Gm/20 Ml) 2 gm in 20 mls @ 80 mls/hr IV PREOP NR; Protocol Stop: 06/29/21 21:00 Lactated Ringer's (Lactated Ringers) 1,000 mls @ 42 mls/hr IV PREOP SUSU Last Admin: 06/29/21 09:35 Dose: 42 mls/hr Sodium Chloride (Nacl 0.9% 1000 Ml) 1,000 mls @ 100 mls/hr IV DIRECT SUSU Last Admin: 06/29/21 12:10 Dose: 100 mls/hr Midazolam HCl (Midazolam 2 Mg/2 Ml Inj) 2 mg IV PREOP NR Stop: 06/29/21 23:59 Last Admin: 06/29/21 13:10 Dose: 2 mg Ondansetron HCl (Ondansetron 4 Mg/2 Ml Inj) 4 mg IV ONCE PRN PRN Reason: Nausea And Vomiting - Brief post op/procedure progress note Date of procedure: 06/29/21 Pre-op diagnosis: Nonhealing Left Below Knee Amputation Post-op diagnosis: same Procedure: 1. Revision of Right Below-Knee Amputation with Excisional Debridement of Tibia 2. Placement of 100mg of ACell MicroMatrix Standard Particulate and 5 x 5 cm 3- Layer Cytal Wound Matrix Anesthesia: GETA Findings: Remaining exposed tibia was healthy with bleeding edges and bone marrow. There was no overt signs of infection. Surgeon: KELLEE THORNE Estimated blood loss: minimal Pathology: list (Debrided portions of right tibia) Specimen disposition: discarded Condition: stable - Disposition Condition at discharge: Good Disposition: 01 HOME / SELF CARE / HOMELESS Short Stay Discharge Plan Wound: per your surgeon's advice (Do not remove right leg dressing. Keep dressing in place until follow-up with vascular surgeon in 1 week.) Follow up with: KELLEE THORNE MD [Staff Physician] - 07/05/21 1:00 pm Prescriptions: Oxycodone HCl/Acetaminophen [Percocet 7.5/325 mg] 1 each PO Q6HR PRN #24 tab PRN Reason: Pain
[2021-06-29] MEDS ORDERED: fentaNYL 100 MCG/2 ML INJ ONE (13:52)
[2021-06-29] MEDS ORDERED: SODIUM CHLORIDE 0.9% IRR 1,500 ML BOTTLE IR ONE (14:14)
--- NOTE | 2021-06-29 14:46 | Operative Report ---
Operative Report Operative Report: Date of Procedure: 06/29/2021 Pre-operative Diagnosis: Nonhealing Right Below-Knee Amputation Post-operative Diagnosis: Same Procedure(s): 1. Revision of Right Below-Knee Amputation with Excisional Debridement of Tibia 2. Placement of 100mg of ACell MicroMatrix Standard Particulate and 5 x 5 cm 3- Layer Cytal Wound Matrix Surgeon: Augustine Banuelos M.D. Medical Equipment Repair Technician: None Anesthesia: General Endotracheal Anesthesia EBL: Minimal Counts: Correct Complications: None Condition: Stable Findings: Remaining exposed tibia was healthy with bleeding edges and bone marrow. There was no overt signs of infection. Specimen: Debrided portions of right tibia were discarded. Indication: The patient is a 66-year-old male with a history of coronary artery disease and peripheral vascular disease who had a revision of his right BKA to prevent conversion to an AKA. His wound was healed using a wound VAC however the distal tip of his tibia is exposed and requires debridement with possible placement of a wound matrix to heal. He was given the risk, benefits, and alternative procedures and consented to the procedure. Description of Procedure: The patient was brought to the operating room and laid in supine position. After timeout was performed general endotracheal anesthesia was achieved. The patient's right leg was then prepped and draped in normal sterile fashion. A [employer] TPS M Round Fluted Bur was used to debride the tibia, which was extending approximately 1 to 2 mm beyond the skin edges. Once the bone had been debrided below the surface of the skin a rasp was used to smooth the edges. Hemostasis was achieved with manual pressure and cautery. Once hemostasis was achieved the wound was then copiously irrigated and 100mg of ACell MicroMatrix Standard Particulate was placed over the exposed portion of the tibia. A 5 x 5 cm 3-Layer Cytal Wound Matrix was then placed over the wound and secured in position with 3-0 chromic in interrupted fashion. A piece of Adaptic was then placed over the wound and coated with aqueous gel to keep the wound matrix hydrated. Folded 4 x 4's were then placed over the wound to bolster the wound matrix in place and then the wound was dressed with a Kerlix dressing and a 4 inch Ran bandage. The patient tolerated the procedure well. All sponge, needle, and instrument counts were correct. The patient was taken to the recovery area in stable condition.
[2021-06-29 17:09] VITALS: BP 137/76
== END 2021-06-29 09:18 | disposition home or self-care (01) ==
LOC: OR 09:17
PROVIDERS: ATTEND Surgery Vascular Surgery
DX: T87.89 Other complications of amputation stump (principal); I70.222 Atherosclerosis of native arteries of extremities with rest pain, left leg; I25.2 Old myocardial infarction; I25.10 Atherosclerotic heart disease of native coronary artery without angina pectoris; D64.9 Anemia, unspecified; E78.2 Mixed hyperlipidemia; I11.0 Hypertensive heart disease with heart failure; I50.9 Heart failure, unspecified; F32.9 Major depressive disorder, single episode, unspecified; F41.9 Anxiety disorder, unspecified; Z88.8 Allergy status to other drugs, medicaments and biological substances; Z79.899 Other long term (current) drug therapy; Z79.82 Long term (current) use of aspirin; Z87.891 Personal history of nicotine dependence; Z89.511 Acquired absence of right leg below knee; Z95.1 Presence of aortocoronary bypass graft; Z86.718 Personal history of other venous thrombosis and embolism; Z90.49 Acquired absence of other specified parts of digestive tract; Z98.890 Other specified postprocedural states; Z80.8 Family history of malignant neoplasm of other organs or systems; Z82.49 Family history of ischemic heart disease and other diseases of the circulatory system
CPT/HCPCS: 27884; 36415; 80048; 85027; J0690; J2250; J2704; J3010; J3490; J7030; J7120; Q4118; Q4166; Q0162

== ENCOUNTER 2021-09-24 08:22 | Day surgery (SDC) | payer MEDICARE ==
[2021-09-24] MEDS ORDERED: SODIUM CHLORIDE 0.9% 500 ML 500 ML IV SCH (09:00)
[2021-09-24 09:13] LABS: Hematocrit 41.8 % (35.5-45.6); Hemoglobin 14.6 gm/dl (11.8-15.2); Mean Corpuscular HGB Conc 35 % (32-34); Mean Corpuscular Volume 90 fl (84-94); Platelet Count 179 K/mm3 (140-440); Red Blood Count 4.65 M/mm3 (3.65-5.03); Red Cell Distribution Width 15.1 % (13.2-15.2)
[2021-09-24] MEDS ORDERED: BIVALIRUDIN 250 MG INJ IV ONE ×2 (09:19→11:02)
[2021-09-24] MEDS ORDERED: LIDOCAINE (2%) 20 MG/1 ML VIAL 50 ML MDV INFILTRATI ONE (09:19)
[2021-09-24] MEDS ORDERED: SODIUM CHLORIDE 0.9% 1000 ML 1,000 ML ONE ×2 (09:21→11:26)
[2021-09-24] MEDS ORDERED: SODIUM CHLORIDE 0.9% 100 ML ONE ×3 (09:21→12:42)
[2021-09-24 09:33] LABS: Blood Urea Nitrogen 9 mg/dL (9-20); Calcium 9.2 mg/dL (8.4-10.2); Hemolysis Index 10
[2021-09-24 09:41] LABS: INR 0.92 (0.87-1.13)
[2021-09-24 09:57] LABS: BUN/Creatinine Ratio 15
[2021-09-24] MEDS: fentaNYL 100 MCG/2 ML INJ ONE ×2 (11:04→11:32)
[2021-09-24] MEDS: MIDAZOLAM 2 MG/2 ML INJ ONE ×2 (11:04→11:32)
[2021-09-24] MEDS ORDERED: MIDAZOLAM 2 MG/2 ML INJ ONE (11:59)
[2021-09-24] MEDS ORDERED: ALTEPLASE 2 MG INJ ONE (12:33)
[2021-09-24] MEDS ORDERED: NITROGLYCERIN SYRINGE 6 ML ONE (12:35)
[2021-09-24] MEDS ORDERED: APIXABAN 5 MG TAB ONE ×2 (13:05→13:07)
[2021-09-24] MEDS ORDERED: CLOPIDOGREL 75 MG TAB ONE (13:05)
--- NOTE | 2021-09-24 13:56 | Short Stay Summary ---
Short Stay Documentation Date of service: 09/24/21 Narrative H&P: See H&P - History H&P: obtained from office - Allergies and Medications Current Medications: Allergies procaine [From Novocain] Allergy (Verified 06/23/21 16:08) Blacks out heparin Adverse Reaction (Verified 06/23/21 16:08) BLOOD CLOTS Home Medications Medication Instructions Recorded Confirmed Last Taken Type Aspirin [Adult Aspirin] 81 mg PO DAILY 12/03/20 09/24/21 09/23/21 History 1 tab AtorvaSTATin [Lipitor] 40 mg PO QHS 12/03/20 09/24/21 09/23/21 History 1 tab Isosorbide Dinitrate [Isordil] 10 mg PO BID #60 tablet 12/09/20 09/24/21 09/23/21 Rx 2 tab Apixaban [Eliquis] 5 mg PO BID 02/15/21 09/24/21 09/23/21 History 1 tab Metoprolol [Lopressor TAB] 25 mg PO BID 02/15/21 09/24/21 09/23/21 History 2 tabs Venlafaxine [Effexor 37.5mg tab] 37.5 mg PO QDAY 02/15/21 09/24/21 09/23/21 History 1 tab Clopidogrel [Plavix] 75 mg PO QDAY #90 tablet 02/19/21 09/24/21 09/23/21 Rx 1 tab Ranolazine ER [Ranexa ER] 500 mg PO BID 05/25/21 09/24/21 09/23/21 History 2 tab Vitamin E (Dl,Tocopheryl Acet) 180 mg PO DAILY 06/23/21 09/24/21 09/23/21 History [Vitamin E] 1 tab Oxycodone HCl/Acetaminophen 1 each PO Q6HR PRN #24 tab 06/29/21 09/24/21 09/23/21 Rx [Percocet 7.5/325 mg] 1 tab Active Medications Sodium Chloride (Nacl 0.9% 500 Ml) 500 mls @ 50 mls/hr IV DIRECT SUSU Last Admin: 09/24/21 09:37 Dose: 50 mls/hr - Brief post op/procedure progress note Date of procedure: 10/01/21 Pre-op diagnosis: Peripheral Vascular Disease with Left Lower Extremity Rest Pain Post-op diagnosis: same Procedure: 1. Ultrasound-Guided Access Right Common Femoral Artery 2. Diagnostic Aortogram (The Patient Had a Clinical Change) 3. Diagnostic Left Lower Extremity Angiogram (The Patient Had a Clinical Change) 4. Atherectomy with Angioplasty and Stent of Left SFA and Popliteal Artery with 2.4/3.4 [employer] Atherectomy Catheter over a 5 mm Spider Filter Wire, 5.0 x 150 [place] Drug-Coated Balloon in the Below-Knee Popliteal Artery and 6 x 60 [place] Drug-Eluting Stent, Angioplasty of Above Knee Popliteal Artery with with 6.0 x 150 [place] Drug-Coated Balloon and 7 x 120 [place] Drug-Eluting Stent, Angioplasty of SFA With 6 x 150 [place] Drug-Coated Balloon and 7 x 120 [place] Drug-Eluting Stent in the Mid SFA and 7 x 80 [place] Drug-Eluting Stent in the Proximal SFA 5. Secondary Pharmacomechanical Embolectomy of Left Anterior Tibial Artery with 6 Amharic Multipurpose Guide Catheter and 4 Mg of tPA 6. Angioplasty of Left Anterior Tibial Artery with a 3 x 220 Sergio Balloon 7. Closure of Right Femoral Arteriotomy with Perclose [place] Closure Device 8. Radiologic Supervision with Interpretation 9. Monitored Moderate Sedation (Total Anesthesia Time: 129 Minutes) Anesthesia: local, other (Monitored Moderate Sedation) Surgeon: KELLEE THORNE Estimated blood loss: minimal Pathology: none Condition: stable - Disposition Condition at discharge: Good Disposition: 01 HOME / SELF CARE / HOMELESS Short Stay Discharge Plan Activity: other (No strenuous activity for 24 hours.) Wound: remove dressing (in 48 hours) Follow up with: KELLEE THORNE MD [Staff Physician] - 14 Days
[2021-09-24] MEDS ORDERED: CLOPIDOGREL 300 MG TAB PO ONE (14:15)
[2021-09-24] MEDS ORDERED: APIXABAN 5 MG TAB PO ONE (14:15)
--- NOTE | 2021-09-24 14:17 | Operative Report ---
Operative Report Operative Report: Date of Procedure: 09/24/2021 Pre-operative Diagnosis: Peripheral Vascular Disease with Left Lower Extremity Rest Pain Post-operative Diagnosis: Same Procedure(s): 1. Ultrasound-Guided Access Right Common Femoral Artery 2. Diagnostic Aortogram (The Patient Had a Clinical Change) 3. Diagnostic Left Lower Extremity Angiogram (The Patient Had a Clinical Change) 4. Atherectomy with Angioplasty and Stent of Left SFA and Popliteal Artery with 2.4/3.4 Jetstream Atherectomy Catheter over a 5 mm Spider Filter Wire, 5.0 x 150 [place] Drug-Coated Balloon in the Below-Knee Popliteal Artery and 6 x 60 Tosin Drug-Eluting Stent, Angioplasty of Above Knee Popliteal Artery with with 6.0 x 150 Acme Drug-Coated Balloon and 7 x 120 Tosin Drug-Eluting Stent, Angioplasty of SFA With 6 x 150 Acme Drug-Coated Balloon and 7 x 120 Tosin Drug-Eluting Stent in the Mid SFA and 7 x 80 Tosin Drug-Eluting Stent in the Proximal SFA 5. Secondary Pharmacomechanical Embolectomy of Left Anterior Tibial Artery with 6 Austrian Multipurpose Guide Catheter and 4 mg of tPA 6. Angioplasty of Left Anterior Tibial Artery with a 3 x 220 Sergio Balloon 7. Closure of Right Femoral Arteriotomy with Perclose Pro-[place] Closure Device 8. Radiologic Supervision with Interpretation 9. Monitored Moderate Sedation (Total Anesthesia Time: 129 Minutes) Surgeon: Augustine Banuelos M.D. Radiology Practitioner Assistant: None Anesthesia: Local/Monitored Moderate Sedation Total Anesthesia Time: 129 Minutes EBL: Minimal Counts: Correct Complications: None Condition: Stable Specimen: None Indication: The patient is a 66-year-old male with a history of peripheral vascular disease who was undergone a right below-knee amputation as well as multiple endovascular interventions of his left lower extremity. He presented with rest pain involving his left lower extremity and is in need of a diagnostic angiogram and possible intervention. He was given the risk, benefits, and alternative procedures and consented to the procedure. Angiographic Findings: The diagnostic aortogram revealed that the aorta was patent but ectatic without definite aneurysmal dilatation or flow-limiting stenosis. The common iliac artery, hypogastric artery, and external iliac artery were patent without evidence of flow-limiting stenosis. The common femoral artery and proximal profunda artery were patent without evidence of flow-limiting stenosis of although there was some evidence of emboli within the distal profunda branches. The SFA was occluded shortly after its origin and previously placed stents extending from the SFA into the mid popliteal artery were occluded. There was reconstitution of flow within the below-knee popliteal artery this artery was stenosed with approximate 50% stenosis. There was one-vessel runoff to the anterior tibial artery which was patent without evidence of significant flow- limiting stenosis. After intervention the SFA was patent with less than 20% residual stenosis and minimal residual thrombus within the mid SFA however this was trapped with a self-expanding stent. The popliteal artery was patent with less than 20% residual stenosis and no significant residual thrombus. The anterior tibial artery was patent with no significant residual thrombus and no evidence of distal emboli in the dorsalis pedis artery at the completion of the case. Description of Procedure: The patient was brought to the Dairy Farm Operator and laid in supine position. After timeout was performed his right groin was prepped and draped in normal sterile fashion. Ultrasound was used to identify the right common femoral artery and confirm patency. Once patency was confirmed the overlying skin and soft tissue was anesthetized lidocaine. An 11 blade was used to make a small stab incision and then a curved hemostat was used to bluntly dissect down to the anterior surface of the right common femoral artery under ultrasound guidance. A 21- gauge micropuncture needle was used ultrasound guidance into the right common femoral artery, in retrograde fashion, and a 0.018 micropuncture wire was advanced to the artery. The needle was removed and a micropuncture sheath was placed by Seldinger technique. The dilator and wire were removed and a 0.035 Bentson wire was advanced into the aorta. The micropuncture sheath was exchanged for 5 Austrian sheath by Seldinger technique. An Omni Flush catheter was advanced into the aorta and after removing the wire diagnostic aortogram was performed with the previously described findings. The wire was reinserted and the wire and catheter were advanced up and over the bifurcation and a left lower extremity angiogram was performed with the previously described findings. I advanced the Bentson wire to the profunda artery and then exchanged the 5 Austrian sheath for a 7 Austrian 45 cm destination sheath by Seldinger technique. At this point, given the patient's heparin allergy, the patient was dosed with a bolus of Angiomax and then was placed on a drip there remained on until the completion of the case. I used the Navicross catheter and a 0.018 Gladius Wire and was able to cannulate the stump of the SFA and traverse the occlusion and advanced the wire catheter into the anterior tibial artery which was confirmed by angiogram. I then exchanged the wire for a 0.014 5 mm Spider Wire which I placed in the below-knee popliteal artery. I then performed atherectomy of the SFA and popliteal artery using a 2.4/3.4 Jetstream Atherectomy Catheter with both blades down and blades up. Of note I was unable to advance the atherectomy catheter to the distal 1 cm of the stent and therefore unable to treat the mid and distal popliteal artery. I then performed angioplasty of the proximal po pliteal artery as well as the entire SFA using 6 x 150 Acme Drug-Coated Balloons. This did not result in patency of the system so I then performed angioplasty of the mid and distal popliteal artery using a 5 x 150 Acme Drug- Coated Balloon which again did not result in patency of the system. I attempted to recapture my filter wire however I was unable to bring the wire back to the stent or advanced the catheter over the wire so advanced the Gladius wire as a malcolm wire alongside the wire and advanced this through the stent. I was then able to pull the filter wire back into the popliteal artery and recaptured the filter wire through a multipurpose guide catheter. I advanced a Gladius wire into the anterior tibial artery and then advanced the Navicross into the anterior tibial artery and at that time an angiogram revealed distal emboli within the anterior tibial artery. I injected 600 mcg of nitroglycerin and 4 mg of tPA and allow this to dwell and then advanced the 6 Austrian multipurpose guide catheter into the anterior tibial artery and was able to aspirate the thrombus from anterior tibial artery. Further angiograms revealed a dissection in the below-knee popliteal artery so I placed the 6 x 60 Tosin Drug-Eluting Self- Expanding Stent in the below-knee popliteal artery and postdilated this with a 5 mm balloon which resulted in less than 20% residual stenosis. There was approximately 85% residual stenosis at the distal portion of the stent in the proximal popliteal artery so I placed a 7 x 120 Tosin Drug-Eluting Stent extending into the distal portion of the stent and then postdilated this with a 6 mm balloon which resulted in less than 20% residual stenosis. There was thrombus within the midportion of the stent that I attempted to aspirate with a catheter however this was unsuccessful so I trapped this using a 7 x 120 Tosin Drug-Eluting Stent with no evidence of distal emboli or residual thrombus noted. There was approximately 75% residual stenosis in the proximal SFA and I placed a 7 x 80 Tosin Drug-Eluting Stent across the proximal SFA and then postdilated this with the 7 mm balloon which resulted in less than 20% residual stenosis. The flow was still somewhat sluggish and this was secondary to what appeared to be stenosis in the mid anterior tibial artery that was not noted in the initial angiogram. I performed angioplasty of the entire SFA and dorsalis pedis artery using a 3 x 220 Sergio Balloon which resulted in less than 10% residual stenosis and brisk flow of contrast into the foot. At this point I remove the wire and pulled the sheath back into the right external iliac artery. I advanced a Bentson wire into the aorta and after removing the sheath used a Perclose ProGlide Closure Device to close the right femoral arteriotomy. A sterile dressing was then applied to the right groin entry site and the patient was transported to the recovery area in stable condition.
[2021-09-24 15:03] VITALS: BP 125/96
== END 2021-09-24 15:30 | disposition home or self-care (01) ==
LOC: CATHLABREC 08:22
PROVIDERS: ATTEND Surgery Vascular Surgery
DX: I70.222 Atherosclerosis of native arteries of extremities with rest pain, left leg (principal); I25.2 Old myocardial infarction; I25.10 Atherosclerotic heart disease of native coronary artery without angina pectoris; I10 Essential (primary) hypertension; D64.9 Anemia, unspecified; E78.2 Mixed hyperlipidemia; I11.0 Hypertensive heart disease with heart failure; I50.9 Heart failure, unspecified; F43.9 Reaction to severe stress, unspecified; Z88.8 Allergy status to other drugs, medicaments and biological substances; Z79.899 Other long term (current) drug therapy; Z98.890 Other specified postprocedural states; Z79.82 Long term (current) use of aspirin; Z87.891 Personal history of nicotine dependence; Z89.511 Acquired absence of right leg below knee; Z95.1 Presence of aortocoronary bypass graft; Z86.718 Personal history of other venous thrombosis and embolism; Z90.49 Acquired absence of other specified parts of digestive tract; F41.9 Anxiety disorder, unspecified; Z80.8 Family history of malignant neoplasm of other organs or systems; Z82.49 Family history of ischemic heart disease and other diseases of the circulatory system
CPT/HCPCS: 34203; 36415; 37227; 37228; 75625; 75710; 76937; 80048; 85027; 85610; 99156; 99157; C1724; C1725; C1760; C1769; C1874; C1884; C1887; C2623; J0583; J1815; J2250; J2997; J3010; J3490; J7030; J7040; Q9967

== ENCOUNTER 2021-09-30 12:43 | Inpatient (IN) | payer MEDICARE ==
[2021-09-30] MEDS ORDERED: ONDANSETRON 4 MG/2 ML INJ IV PRN (13:14)
[2021-09-30] MEDS ORDERED: HYDROmorphone 0.5 MG/0.5 ML INJ IV PRN (13:14)
[2021-09-30] MEDS ORDERED: traMADol 50 MG TAB PO PRN (13:14)
[2021-09-30] MEDS ORDERED: MORPHINE 4 MG/1 ML INJ IV PRN (13:14)
[2021-09-30] MEDS ORDERED: ALTEPLASE 20 MG in SODIUM CHLORIDE 0.9% 500 ML 500 ML EKOSDLUMEN STA (13:14)
[2021-09-30] MEDS ORDERED: SODIUM CHLORIDE 0.9% 1000 ML 1,000 ML EKOSCLUMEN SCH (13:15)
[2021-09-30] MEDS ORDERED: SODIUM CHLORIDE 0.9% 1000 ML 1,000 ML SHEATH SCH (13:15)
[2021-09-30] MEDS ORDERED: SODIUM CHLORIDE 0.9% 1000 ML 1,000 ML IV SCH (13:15)
[2021-09-30] MEDS ORDERED: SODIUM CHLORIDE 0.9% 1000 ML 1,000 ML ONE (13:21)
[2021-09-30] MEDS ORDERED: WATER FOR INJ Sterile (PF) 10 ML ONE (13:21)
[2021-09-30] MEDS ORDERED: SODIUM CHLORIDE 0.9% 100 ML ONE (13:21)
[2021-09-30] MEDS ORDERED: SODIUM CHLORIDE 0.9% 500 ML 1,000 ML ONE (13:22)
[2021-09-30] MEDS: BIVALIRUDIN 250 MG INJ IV ONE (13:25)
[2021-09-30] MEDS: fentaNYL 100 MCG/2 ML INJ ONE ×3 (13:47→15:15)
[2021-09-30] MEDS: MIDAZOLAM 2 MG/2 ML INJ ONE ×2 (13:47→14:35)
[2021-09-30] MEDS: LIDOCAINE (2%) 20 MG/1 ML VIAL 50 ML MDV INFILTRATI ONE ×2 (13:48→14:40)
[2021-09-30] MEDS: ALTEPLASE 2 MG INJ ONE ×2 (13:49→14:50)
--- NOTE | 2021-09-30 13:55 | Short Stay Summary ---
Short Stay Documentation Date of service: 09/30/21 - History Principal diagnosis: Acute arterial occlusion left leg H&P: obtained from office - Allergies and Medications Current Medications: Allergies procaine [From Novocain] Allergy (Verified 06/23/21 16:08) Blacks out heparin Adverse Reaction (Verified 06/23/21 16:08) BLOOD CLOTS Home Medications Medication Instructions Recorded Confirmed Last Taken Type Aspirin [Adult Aspirin] 81 mg PO DAILY 12/03/20 09/24/21 09/23/21 History 1 tab AtorvaSTATin [Lipitor] 40 mg PO QHS 12/03/20 09/24/21 09/23/21 History 1 tab Isosorbide Dinitrate [Isordil] 10 mg PO BID #60 tablet 12/09/20 09/24/21 09/23/21 Rx 2 tab Apixaban [Eliquis] 5 mg PO BID 02/15/21 09/24/21 09/23/21 History 1 tab Metoprolol [Lopressor TAB] 25 mg PO BID 02/15/21 09/24/21 09/23/21 History 2 tabs Venlafaxine [Effexor 37.5mg tab] 37.5 mg PO QDAY 02/15/21 09/24/21 09/23/21 History 1 tab Clopidogrel [Plavix] 75 mg PO QDAY #90 tablet 02/19/21 09/24/21 09/23/21 Rx 1 tab Ranolazine ER [Ranexa ER] 500 mg PO BID 05/25/21 09/24/21 09/23/21 History 2 tab Vitamin E (Dl,Tocopheryl Acet) 180 mg PO DAILY 06/23/21 09/24/21 09/23/21 History [Vitamin E] 1 tab Oxycodone HCl/Acetaminophen 1 each PO Q6HR PRN #24 tab 06/29/21 09/24/21 09/23/21 Rx [Percocet 7.5/325 mg] 1 tab - Brief post op/procedure progress note Date of procedure: 09/30/21 Pre-op diagnosis: Acute arterial occlusion with PVD left leg Post-op diagnosis: same Procedure: Thrombectomy, placement of EKOS thrombolytics catheter Anesthesia: local Surgeon: SHARONA LEMUS Estimated blood loss: minimal Pathology: none Condition: stable - Disposition Condition at discharge: Good Disposition: SHORT TERM HOSPITAL Short Stay Discharge Plan Activity: advance as tolerated Diet: regular Wound: keep clean and dry, per your surgeon's advice Follow up with: KASHIF CLEANING MD [Primary Care Provider] - 7 Days
[2021-09-30 13:59] LABS: Basophils % (Auto) 0.1 % (0.0-1.8); Eosinophils # (Auto) 0.3 K/mm3 (0.0-0.4); Eosinophils % (Auto) 4.9 % (0.0-4.3); Hematocrit 38.3 % (35.5-45.6); Lymphocytes # (Auto) 2.4 K/mm3 (1.2-5.4); Lymphocytes % (Auto) 39.4 % (13.4-35.0); Mean Corpuscular HGB Conc 34 % (32-34); Mean Corpuscular Volume 91 fl (84-94); Monocytes # (Auto) 0.6 K/mm3 (0.0-0.8); Monocytes % (Auto) 10.4 % (0.0-7.3); Platelet Count 205 K/mm3 (140-440); Red Blood Count 4.23 M/mm3 (3.65-5.03); Red Cell Distribution Width 14.5 % (13.2-15.2)
[2021-09-30] MEDS ORDERED: ARGATROBAN 250 MG in SODIUM CHLORIDE 0.9% 250ML 247.5 ML IV SCH (14:00)
[2021-09-30 14:11] LABS: INR 0.97 (0.87-1.13); Partial Thromboplastin Time 26.7 Sec. (24.2-36.6)
[2021-09-30 14:16] LABS: Alanine Aminotransferase 19 units/L (7-56); Albumin 3.6 g/dL (3.9-5); Blood Urea Nitrogen 9 mg/dL (9-20); Hemolysis Index 0
[2021-09-30 14:17] LABS: BUN/Creatinine Ratio 15
--- NOTE | 2021-09-30 15:18 | Operative Report ---
Operative Report Operative Report: Exam: Left leg thrombectomy, placement of EKOS thrombolytics catheter Clinical indication: Patient with a history of acute arterial ischemia left leg Date: 09/30/2021 Procedure: Following an explanation of the risk, benefits and alternatives; written informed consent was obtained. The patient was brought to the angiographic suite and placed in supine position on the examination table. Initial ultrasound evaluation of his right groin demonstrated a patent right common femoral artery. The patient's right groin was prepped and draped in the usual sterile fashion. 1% lidocaine was used for anesthesia. Under ultrasound guidance, the right common femoral artery was cannulated using a 7 cm 21-gauge needle. A 0.018 guidewire was advanced centrally. The needle was removed and a micro sheath placed. The 0.018 guidewire was exchanged for a 0.035 guidewire and the micro sheath exchanged for a 6 [place] vascular sheath. An Omni Flush catheter was then advanced over the guidewire to the distal abdominal aorta. Angiography was performed for anatomic localization. The distal abdominal aorta, bilateral common iliac and bilateral external iliac arteries are patent with scattered atherosclerotic disease. The bifurcation was then crossed using the Omni Flush catheter and guidewire. Additional an giography was performed with the catheter placed in the external iliac artery on the left and common femoral artery on the left. This demonstrates complete occlusion of the SFA. Filling of the lower leg is through the profunda and profunda collaterals alone. The Omni Flush catheter was exchanged over the guidewire for a vertebral catheter and to aortography and left lower extremity angiography demonstrating patent distal abdominal aorta, bilateral common iliac and bilateral external iliac arteries. The common femoral artery on the left is patent. There is occlusion of the SFA from its origin. There is occlusion of the popliteal artery. gether the vertebral catheter and guidewire were advanced through the occluded SFA into the anterior tibial artery. Contrast was injected. This dem onstrates that the anterior tibial artery is patent although no significant inflow. With a guidewire in the anterior tibial artery. A 6 [place] MPA guide cath was then advanced over the guidewire and manipulated to the origin of the SFA. Aspiration thrombectomy was then performed from the origin of the SFA to the anterior tibial artery. Thrombus was removed. The catheter was removed, cleaned and reinserted and additional angiography performed with the catheter placed in the common femoral artery. This demonstrates that there is luminal flow throughout the [place] SFA although a significant amount of thrombus burden is identified. A 135 cm total length 50 cm infusion length EKOS thrombolytics catheter was then advanced over the guidewire and deployed from the proximal anterior tibial a rtery to the origin of the SFA. The guidewire was removed and the ultrasound wire advanced through the thrombolytics catheter and anchored in place. Images were saved to document appropriate positioning. The sheath was securely fastened to the groin using 0 silk suture. The thrombolytics catheter was then passed into the sheath using 0 silk suture. Sterile dressings were applied. The patient tolerated the procedure well. There were no immediate postprocedure complications. Conscious sedation was performed under the guidance of radiologic nursing. Continuous cardiopulmonary monitoring was utilized. Impression: 1) Aortography and left lower extremity angiography demonstrating that the distal abdominal aorta, bilateral common iliac and bilateral external iliac arteries have scattered atherosclerotic disease without flow-limiting stenosis and are patent. The common femoral artery on the left is patent. There is flush occlusion of the superficial femoral artery on the left, occl usion of the popliteal artery on the left, and occlusion of the proximal anterior tibial artery. 2) Aspiration thrombectomy using 6 [place] MPA guide cath of the SFA, popliteal and proximal anterior tibial artery. 3) Placement of an EKOS thrombolytics catheter from the origin of the SFA to the proximal anterior tibial artery. 4) The patient will return to the International Flight Attendant tomorrow for removal of the EKOS thrombolytics catheter and additional arterial intervention.
[2021-09-30] MEDS: MORPHINE 2 MG/1 ML INJ IV PRN (15:29)
[2021-09-30] MEDS: HYDROmorphone 0.5 MG/0.5 ML INJ IV PRN ×2 (15:53→20:46)
[2021-09-30] MEDS: HYDROcodone/ACETAMINOPHEN 5-325 MG TAB PO PRN (18:29)
[2021-10-01] MEDS: HYDROcodone/ACETAMINOPHEN 5-325 MG TAB PO PRN ×2 (00:20→06:21)
[2021-10-01 00:47] LABS: Basophils % (Auto) 0.3 % (0.0-1.8); Eosinophils # (Auto) 0.2 K/mm3 (0.0-0.4); Eosinophils % (Auto) 2.9 % (0.0-4.3); Hematocrit 37.5 % (35.5-45.6); Hemoglobin 12.4 gm/dl (11.8-15.2); Lymphocytes # (Auto) 2.1 K/mm3 (1.2-5.4); Lymphocytes % (Auto) 35.7 % (13.4-35.0); Mean Corpuscular HGB Conc 33 % (32-34); Mean Corpuscular Volume 92 fl (84-94); Monocytes # (Auto) 0.6 K/mm3 (0.0-0.8); Monocytes % (Auto) 10.5 % (0.0-7.3); Platelet Count 157 K/mm3 (140-440); Red Cell Distribution Width 14.7 % (13.2-15.2)
[2021-10-01] MEDS: MORPHINE 2 MG/1 ML INJ IV PRN (03:35)
[2021-10-01] MEDS: HYDROmorphone 0.5 MG/0.5 ML INJ IV PRN ×3 (05:27→15:55)
[2021-10-01 06:05] LABS: Basophils % (Auto) 0.4 % (0.0-1.8); Eosinophils # (Auto) 0.2 K/mm3 (0.0-0.4); Eosinophils % (Auto) 2.7 % (0.0-4.3); Hematocrit 37.1 % (35.5-45.6); Hemoglobin 12.7 gm/dl (11.8-15.2); Lymphocytes % (Auto) 28.9 % (13.4-35.0); Mean Corpuscular HGB Conc 34 % (32-34); Mean Corpuscular Volume 91 fl (84-94); Monocytes # (Auto) 0.6 K/mm3 (0.0-0.8); Monocytes % (Auto) 8.8 % (0.0-7.3); Platelet Count 138 K/mm3 (140-440); Red Blood Count 4.08 M/mm3 (3.65-5.03); Red Cell Distribution Width 14.9 % (13.2-15.2)
[2021-10-01 06:21] LABS: BUN/Creatinine Ratio 18; Blood Urea Nitrogen 9 mg/dL (9-20); Calcium 8.7 mg/dL (8.4-10.2); Hemolysis Index 2
[2021-10-01] MEDS ORDERED: SODIUM CHLORIDE 0.9% 250ML 250 ML ONE (09:40)
[2021-10-01] MEDS ORDERED: LIDOCAINE (1%) 10 MG/1 ML VIAL 20 ML MDV ONE (09:40)
[2021-10-01] MEDS ORDERED: SODIUM CHLORIDE 0.9% 1000 ML 1,000 ML ONE (09:40)
[2021-10-01] MEDS ORDERED: BIVALIRUDIN 250 MG INJ IV ONE ×3 (09:49→10:56)
[2021-10-01] MEDS ORDERED: SODIUM CHLORIDE 0.9% 100 ML ONE (09:50)
[2021-10-01] MEDS: BIVALIRUDIN 250 MG INJ IV ONE (09:50)
[2021-10-01] MEDS: fentaNYL 100 MCG/2 ML INJ ONE ×3 (10:01→10:51)
[2021-10-01] MEDS: MIDAZOLAM 2 MG/2 ML INJ ONE ×2 (10:01→10:29)
[2021-10-01] MEDS ORDERED: SODIUM CHLORIDE 0.9% 50 ML ONE ×2 (10:04→10:56)
[2021-10-01] MEDS ORDERED: WATER FOR INJ Sterile (PF) 10 ML ONE ×2 (10:06→10:56)
--- NOTE | 2021-10-01 11:42 | Operative Report ---
Operative Report Operative Report: Date of Procedure: 10/01/2021 Pre-operative Diagnosis: Critical Limb Ischemia Status Post EKOS Thrombolysis of Left Lower Extremity Post-operative Diagnosis: Same Procedure(s): 1. Removal of EKOS Thrombolysis Catheter 2. Angioplasty of Left Posterior Tibial Artery with 3.0 x 220 Sergio Balloon and 4.0 x 150 [place] Drug-Coated Balloon 3. Angioplasty and Stent of Left Tibioperoneal Trunk with 5.0 x 30 mm Medtronic Resolute [place] Drug-Eluting Balloon Expandable Stent 4. Angioplasty of Proximal Left Anterior Tibial Artery with 4.0 x 150 IN.PACT Drug-Coated Balloon 5. Radiologic Supervision with Interpretation 6. Closure of Right Femoral Arteriotomy with Perclose ProStyle Closure Device 7. Monitored Moderate Sedation (Total Anesthesia Time: 65 Minutes) Surgeon: Augustine Banuelos M.D. Gaming Cage Cashier: Maday Anesthesia: Local/Monitored Moderate Sedation Total Anesthesia Time: 65 Minutes EBL: Minimal Counts: Correct Complications: None Condition: Stable Specimen: None Indication: The patient is a 66-year-old male with a history of peripheral vascular disease and a hypercoagulable state who presented with complaints of progressively worsening rest pain despite recent endovascular intervention and oral anticoagulation with Eliquis. Physical exam demonstrated no palpable pedal pulses and a cool foot with cyanotic changes. He was brought to the hospital and an angiogram demonstrated occlusion of his recently revascularized SFA and popliteal artery. He had an EKOS thrombolysis catheter placed and returns for removal of the catheter with possible further intervention. He was given the risk, benefits, and alternative procedures and consented to the procedure. Angiographic Findings: The follow-up angiogram revealed that the SFA and popliteal artery were patent without evidence of stenosis or significant residual thrombus. There was 50 to 60% stenosis within the proximal anterior tibial artery and what appeared to be embolic debris in the dorsalis pedis artery with an incomplete pedal arch. There was a stump of the proximal tibial peroneal trunk however there was chronic occlusion of the peroneal and posterior tibial arteries. At the completion of the case the anterior tibial artery was patent with less than 10% residual stenosis with no further embolic debris noted within the dorsalis pedis artery. The pedal arch appears complete with brisk flow into the digital vessels. The tibial peroneal trunk was patent with less than 15% residual stenosis in the posterior tibial artery was patent with less than 30% residual stenosis in the proximal segment and less than 20% residual stenosis in the remainder of the artery which was patent into the foot. The proximal peroneal artery was patent without significant stenosis and there was a short segment occlusion in the mid artery however this reconstituted through collaterals with patency of the distal peroneal artery. Description of Procedure: The patient was brought to the Exercise Manager and laid in supine position. After timeout was performed his indwelling sheath and, lysis catheter were prepped and draped in normal sterile fashion. The ultrasound wire was removed and the 0.035 Bentson wire was advanced through the EKOS thrombolysis sheath and into the anterior tibial artery. The catheter was then removed leaving the wire in place. Lidocaine was used anesthetize the skin and soft tissue surrounding the 6 Latvian sheath within the right groin and then a 7 Latvian 45 cm destination sheath was advanced up and over the bifurcation and into the left common femoral artery by Seldinger technique. At this point the patient was systemically heparinized with the appropriate amount of Angiomax bolus and an Angiomax drip was then initiated. A diagnostic left lower extremity angiogram was then performed with the previously described findings. I advanced a Navicross catheter into the below-knee popliteal artery and was able to advance a 0.018 Gladius wire through the struts of a stent, within the below-knee popliteal artery, and cannulate the stump of the tibial peroneal trunk. I exchanged the Navicross catheter for 0.018 trailblazer crossing catheter was then able to cannulate the posterior tibial artery and advanced the catheter and wire into the pedal arch which was confirmed by angiogram. I exchanged the Gladius Wire for a V18 wire and performed angioplasty of the entire posterior tibial artery as well as the tibioperoneal trunk using a 3.0 x 220 Sergio balloon which resulted in less than 20% residual stenosis in the distal and mid posterior tibial artery with approximately 50% residual stenosis in the proximal artery. This also resulted in 80% stenosis of the tibial peroneal trunk however it revealed patency of the proximal peroneal artery without significant stenosis with a short occlusion in the mid artery and reconstitution of the distal artery. I performed angioplasty of the proximal posterior tibial artery with a 4.0 x 150 R[place] drug-coated balloon which resulted in less than 20% residual stenosis. I then advanced the trailblazer over the wire and exchanged the wire for a 0.014 [place] wire. I advanced a 6 Latvian MP guide catheter into the below-knee popliteal artery stent and then advanced a 5.0 x 30 mm Medtronic Resolute [place] Drug-Eluting Balloon Expandable Stent into the tibioperoneal trunk and deployed it. This resulted in less than 15% residual stenosis within the tibial peroneal trunk and brisk flow of contrast into the posterior tibial and peroneal arteries. There was no evidence of distal emboli in the either artery. I removed the delivery catheter as well as the Spartacore wire and then advanced a Bentson wire to the anterior tibial artery. I performed angioplasty of the proximal artery using a 4.0 x 150 IN.PACT drug-coated balloon which resulted in less than 10% residual stenosis. At that point I remove the balloon and pulled the sheath back into the right external iliac artery. I advanced the Bentson wire into the artery and then remove the sheath and used a Perclose ProStyle closure device to close the right femoral arteriotomy. A sterile dressing was then applied to the right groin entry site and the patient was transported to the Intensive Care Unit in stable condition.
[2021-10-01] MEDS: ARGATROBAN 250 MG in SODIUM CHLORIDE 0.9% 250ML 247.5 ML IV SCH (11:50)
--- NOTE | 2021-10-01 11:55 | Consultation ---
History of Present Illness - Reason for Consult Consult date: 10/01/21 Post EKOS - History of Present Illness 66 y/o male with PVD admitted post eKOS therapy. Past History Past Medical History: hypertension, hyperlipidemia Medications and Allergies Allergies Allergy/AdvReac Type Severity Reaction Status Date / Time procaine [From Novocain] Allergy Blacks out Verified 06/23/21 16:08 heparin AdvReac BLOOD CLOTS Verified 06/23/21 16:08 Home Medications Medication Instructions Recorded Confirmed Last Taken Type Aspirin [Adult Aspirin] 81 mg PO DAILY 12/03/20 09/30/21 09/29/21 History 81 mg AtorvaSTATin [Lipitor] 40 mg PO QHS 12/03/20 09/30/21 09/29/21 History 40 mg Isosorbide Dinitrate [Isordil] 10 mg PO BID #60 tablet 12/09/20 09/30/2109/29 Rx 10 mg Apixaban [Eliquis] 5 mg PO BID 02/15/21 09/30/21 09/29/21 History 5 mg Metoprolol [Lopressor TAB] 25 mg PO BID 02/15/21 09/30/21 09/29/21 History 25 mg Venlafaxine [Effexor 37.5mg tab] 37.5 mg PO QDAY 02/15/21 09/30/21 09/29/21 History 37.5mg Clopidogrel [Plavix] 75 mg PO QDAY #90 tablet 02/19/21 09/30/21 09/29/21 Rx 75 mg Ranolazine ER [Ranexa ER] 500 mg PO BID 05/25/21 09/30/21 09/29/21 History 500 mg Vitamin E (Dl,Tocopheryl Acet) 180 mg PO DAILY 06/23/21 09/30/21 09/29/21 History [Vitamin E] 180 mg Active Meds: Active Medications Acetaminophen (Acetaminophen 325 Mg Tab) 650 mg PO Q6H PRN PRN Reason: Pain, Mild (1-3) Hydrocodone Bitart/Acetaminophen (Hydrocodone/Acetaminophen 5-325 Mg Tab) 2 each PO Q6H PRN PRN Reason: Pain, Moderate (4-6) Last Admin: 10/01/21 06:21 Dose: 2 each Aspirin (Aspirin Ec 81 Mg Tab) 81 mg PO DAILY [facility]U Atorvastatin Calcium (Atorvastatin 40 Mg Tab) 40 mg PO QHS [facility] Clopidogrel Bisulfate (Clopidogrel 75 Mg Tab) 75 mg PO QDAY [facility] Folic Acid (Folic Acid 1 Mg Tab) 1 mg PO QDAY [facility] Hydromorphone HCl (Hydromorphone 0.5 Mg/0.5 Ml Inj) 0.25 mg IV Q3H PRN PRN Reason: Pain, Moderate (4-6) Hydromorphone HCl (Hydromorphone 0.5 Mg/0.5 Ml Inj) 0.5 mg IV Q3H PRN PRN Reason: Pain , Severe (7-10) Last Admin: 10/01/21 08:40 Dose: 0.5 mg Argatroban 250 mg/ Sodium (Chloride) 250 mls @ 4.572 mls/hr IV TITR [facility]USU; Protocol Isosorbide Dinitrate (Isosorbide Dinitrate 10 Mg Tab) 10 mg PO BID [facility] Metoprolol Tartrate (Metoprolol Tartrate 25 Mg Tab) 25 mg PO BID [facility] Morphine Sulfate (Morphine 4 Mg/1 Ml Inj) 4 mg IV Q4H PRN PRN Reason: Pain , Severe (7-10) Last Admin: 09/30/21 17:14 Dose: 4 mg Morphine Sulfate (Morphine 2 Mg/1 Ml Inj) 2 mg IV Q4H PRN PRN Reason: Pain, Moderate (4-6) Last Admin: 10/01/21 03:35 Dose: 2 mg Ondansetron HCl (Ondansetron 4 Mg/2 Ml Inj) 4 mg IV Q8H PRN PRN Reason: Nausea And Vomiting Pantoprazole Sodium (Pantoprazole 40 Mg Tab) 40 mg PO QDAC [facility] Ranolazine (Ranolazine Er 500 Mg Tab 12hr) 500 mg PO BID [facility] Tramadol HCl (Tramadol 50 Mg Tab) 50 mg PO Q6H PRN PRN Reason: Pain, Moderate (4-6) Last Admin: 09/30/21 17:31 Dose: 50 mg Venlafaxine HCl (Venlafaxine 37.5 Mg Tab) 37.5 mg PO QDAY [facility] Vitamin E (Tocopherol 200 Unit Cap) 200 unit PO QDAY [facility] Warfarin Sodium (Warfarin 10 Mg Tab) 10 mg PO ONCE ONE; Protocol Stop: 10/01/21 17:01 Warfarin Sodium (Warfarin 5 Mg Tab) 5 mg PO ONCE ONE; Protocol Stop: 10/02/21 17:01 Review of Systems All systems: negative Exam - Constitutional Vitals: Temp Pulse Resp BP Pulse Ox 97.9 F 67 15 130/83 95 10/01/21 04:27 10/01/21 09:00 10/01/21 09:00 10/01/21 09:00 10/01/21 09:00 General appearance: Present: no acute distress, well-nourished - EENT Eyes: Present: PERRL, EOM intact ENT: hearing intact - Neck Neck: Present: supple - Respiratory Respiratory effort: normal Respiratory: bilateral: CTA - Cardiovascular Rhythm: regular - Abdominal General gastrointestinal: Present: soft, non-tender Results - Labs CBC & Chem 7: 10/01/21 05:55 10/01/21 05:55 Labs: Abnormal lab results 09/30/21 09/30/21 09/30/21 Range/Units 13:35 13:35 13:35 Plt Count (140-440) K/mm3 Lymph % (Auto) 39.4 H (13.4-35.0) % Maverick % (Auto) 10.4 H (0.0-7.3) % Eos % (Auto) 4.9 H (0.0-4.3) % APTT (24.2-36.6) Sec. Fibrinogen 782 H (211-480) mg/dl Heparin Anti-Xa Level 0.75 H (0.3-0.7) U.I./ml Sodium 136 L (137-145) mmol/L Creatinine 0.6 L (0.8-1.3) mg/dL Glucose 102 H (75-100) mg/dL Albumin 3.6 L (3.9-5) g/dL 10/01/21 10/01/21 10/01/21 Range/Units 00:29 05:55 05:55 Plt Count 138 L (140-440) K/mm3 Lymph % (Auto) 35.7 H (13.4-35.0) % Maverick % (Auto) 10.5 H 8.8 H (0.0-7.3) % Eos % (Auto) (0.0-4.3) % APTT (24.2-36.6) Sec. Fibrinogen (211-480) mg/dl Heparin Anti-Xa Level (0.3-0.7) U.I./ml Sodium 136 L (137-145) mmol/L Creatinine 0.5 L (0.8-1.3) mg/dL Glucose 116 H (75-100) mg/dL Albumin (3.9-5) g/dL 10/01/21 Range/Units 05:55 Plt Count (140-440) K/mm3 Lymph % (Auto) (13.4-35.0) % Maverick % (Auto) (0.0-7.3) % Eos % (Auto) (0.0-4.3) % APTT 45.1 H (24.2-36.6) Sec. Fibrinogen (211-480) mg/dl Heparin Anti-Xa Level (0.3-0.7) U.I./ml Sodium (137-145) mmol/L Creatinine (0.8-1.3) mg/dL Glucose (75-100) mg/dL Albumin (3.9-5) g/dL Assessment and Plan 66 y/o male with PVD 1. BP control 2. Follow up vascular recs 3. Continue home meds
[2021-10-01] MEDS: TOCOPHEROL 200 UNIT CAP PO SCH (13:10)
[2021-10-01] MEDS ORDERED: WARFARIN 10 MG TAB PO SCH (17:00)
[2021-10-01] MEDS: RANOLAZINE ER 500 MG TAB 12HR PO SCH (21:53)
[2021-10-01] MEDS: ISOSORBIDE DINITRATE 10 MG TAB PO SCH (21:54)
[2021-10-02] MEDS: METOPROLOL TARTRATE 25 MG TAB PO SCH ×3 (01:01→21:28)
[2021-10-02] MEDS: HYDROcodone/ACETAMINOPHEN 5-325 MG TAB PO PRN (06:19)
[2021-10-02 06:46] LABS: Hematocrit 33.5 % (35.5-45.6); Hemoglobin 11.5 gm/dl (11.8-15.2); Mean Corpuscular HGB Conc 34 % (32-34); Mean Corpuscular Volume 91 fl (84-94); Red Cell Distribution Width 14.3 % (13.2-15.2)
[2021-10-02 06:54] LABS: INR 1.69 (0.87-1.13)
[2021-10-02 06:55] LABS: Partial Thromboplastin Time 52.2 Sec. (24.2-36.6)
[2021-10-02 07:09] LABS: Platelet Count 91 K/mm3 (140-440)
[2021-10-02 07:15] LABS: Alanine Aminotransferase 12 units/L (7-56); Albumin 2.9 g/dL (3.9-5); Blood Urea Nitrogen 8 mg/dL (9-20); Calcium 8.7 mg/dL (8.4-10.2); Hemolysis Index 3
[2021-10-02 07:46] LABS: BUN/Creatinine Ratio 16
[2021-10-02] MEDS: RANOLAZINE ER 500 MG TAB 12HR PO SCH ×2 (09:30→21:28)
[2021-10-02] MEDS: TOCOPHEROL 200 UNIT CAP PO SCH (09:30)
[2021-10-02] MEDS: VENLAFAXINE 37.5 MG TAB PO SCH (09:31)
[2021-10-02] MEDS: ASPIRIN EC 81 MG TAB PO SCH (09:33)
[2021-10-02] MEDS: PANTOPRAZOLE 40 MG TAB PO SCH (09:33)
[2021-10-02] MEDS: FOLIC ACID 1 MG TAB PO SCH (09:33)
[2021-10-02] MEDS: CLOPIDOGREL 75 MG TAB PO SCH (09:33)
[2021-10-02] MEDS: ISOSORBIDE DINITRATE 10 MG TAB PO SCH ×2 (09:35→23:56)
--- NOTE | 2021-10-02 11:26 | Progress Note ---
Assessment and Plan 66 y/o male with PVD 10/02/21: Follow up vascular recs. Stable pulm status. Ordered hypercoag work up. 1. BP control 2. Follow up vascular recs 3. Continue home meds Subjective Date of service: 10/02/21 Principal diagnosis: Acute arterial occlusion left leg Interval history: No acute events. Objective - Constitutional Vitals: Vital Signs - 12hr 10/02/21 10/02/21 10/02/21 00:00 01:00 01:01 Temperature 98.5 F Pulse Rate 70 71 74 Respiratory 19 31 H Rate Blood Pressure 96/58 93/51 93/51 O2 Sat by Pulse 94 91 Oximetry 10/02/21 10/02/21 10/02/21 02:00 03:00 04:00 Temperature 97.8 F Pulse Rate 73 70 83 Respiratory 24 26 H 16 Rate Blood Pressure 107/74 108/75 102/61 O2 Sat by Pulse 97 96 94 Oximetry 10/02/21 10/02/21 10/02/21 05:00 06:00 07:00 Temperature Pulse Rate 74 72 68 Respiratory 15 19 17 Rate Blood Pressure 106/72 116/69 108/62 O2 Sat by Pulse 98 98 96 Oximetry 10/02/21 10/02/21 10/02/21 08:00 09:00 09:35 Temperature 97.4 F L Pulse Rate 73 61 65 Respiratory 12 17 Rate Blood Pressure 105/57 101/57 98/47 O2 Sat by Pulse 98 95 Oximetry 10/02/21 10/02/21 10:00 11:00 Temperature Pulse Rate 63 72 Respiratory 16 21 Rate Blood Pressure 98/47 117/71 O2 Sat by Pulse 96 95 Oximetry - Labs CBC & Chem 7: 10/02/21 05:44 10/02/21 05:44 Labs: Abnormal lab results 10/01/21 10/02/21 10/02/21 Range/Units 15:07 05:44 05:44 Hgb 11.5 L (11.8-15.2) gm/dl Hct 33.5 L (35.5-45.6) % Plt Count 91 L (140-440) K/mm3 PT 22.4 H (12.2-14.9) Sec. INR 1.69 H (0.87-1.13) APTT 59.8 H 52.2 H (24.2-36.6) Sec. Sodium (137-145) mmol/L BUN (9-20) mg/dL Creatinine (0.8-1.3) mg/dL Glucose (75-100) mg/dL Total Protein (6.3-8.2) g/dL Albumin (3.9-5) g/dL 10/02/21 Range/Units 05:44 Hgb (11.8-15.2) gm/dl Hct (35.5-45.6) % Plt Count (140-440) K/mm3 PT (12.2-14.9) Sec. INR (0.87-1.13) APTT (24.2-36.6) Sec. Sodium 135 L (137-145) mmol/L BUN 8 L (9-20) mg/dL Creatinine 0.5 L (0.8-1.3) mg/dL Glucose 128 H (75-100) mg/dL Total Protein 6.1 L (6.3-8.2) g/dL Albumin 2.9 L (3.9-5) g/dL Medications & Allergies - Medications Allergies/Adverse Reactions: Allergies procaine [From Novocain] Allergy (Verified 06/23/21 16:08) Blacks out heparin Adverse Reaction (Verified 06/23/21 16:08) BLOOD CLOTS Home Medications: Home Medications Medication Instructions Recorded Confirmed Last Taken Type Aspirin [Adult Aspirin] 81 mg PO DAILY 12/03/20 09/30/21 09/29/21 History 81 mg AtorvaSTATin [Lipitor] 40 mg PO QHS 12/03/20 09/30/21 09/29/21 History 40 mg Isosorbide Dinitrate [Isordil] 10 mg PO BID #60 tablet 12/09/20 09/30/21 09/29/21 Rx 10 mg Apixaban [Eliquis] 5 mg PO BID 02/15/21 09/30/21 09/29/21 History 5 mg Metoprolol [Lopressor TAB] 25 mg PO BID 02/15/21 09/30/21 09/29/21 History 25 mg Venlafaxine [Effexor 37.5mg tab] 37.5 mg PO QDAY 02/15/21 09/30/21 09/29/21 History 37.5mg Clopidogrel [Plavix] 75 mg PO QDAY #90 tablet 02/19/21 09/30/21 09/29/21 Rx 75 mg Ranolazine ER [Ranexa ER] 500 mg PO BID 05/25/21 09/30/21 09/29/21 History 500 mg Vitamin E (Dl,Tocopheryl Acet) 180 mg PO DAILY 06/23/21 09/30/21 09/29/21 History [Vitamin E] 180 mg Active Medications: Generic Name Dose Route Start Last Admin Trade Name Freq PRN Reason Stop Dose Admin Acetaminophen 650 mg 09/30/21 13:14 Acetaminophen 325 Mg Tab PO Q6H PRN Pain, Mild (1-3) Hydrocodone Bitart/Acetaminophen 2 each 09/30/21 13:14 10/02/21 06:19 Hydrocodone/Acetaminophen 5-325 Mg Tab PO 2 each Q6H PRN Administration Pain, Moderate (4-6) Aspirin 81 mg 10/02/21 10:00 10/02/21 09:33 Aspirin Ec 81 Mg Tab PO 81 mg DAILY SUSU Administration Atorvastatin Calcium 40 mg 10/01/21 22:00 10/01/21 21:53 Atorvastatin 40 Mg Tab PO 40 mg QHS [facility]U Administration Clopidogrel Bisulfate 75 mg 10/02/21 10:00 10/02/21 09:33 Clopidogrel 75 Mg Tab PO 75 mg QDAY [facility]U Administration Folic Acid 1 mg 10/02/21 10:00 10/02/21 09:33 Folic Acid 1 Mg Tab PO 1 mg QDAY [facility] Administration Hydromorphone HCl 0.5 mg 09/30/21 13:14 10/01/21 15:55 Hydromorphone 0.5 Mg/0.5 Ml Inj IV 0.5 mg Q3H PRN Administration Pain , Severe (7-10) Argatroban 250 mg/ Sodium 250 mls @ 4.572 mls/hr 10/01/21 12:00 10/01/21 16:44 Chloride IV 1 mcg/kg/min TITR SUSU 4.572 mls/hr Titration Protocol 1 MCG/KG/MIN Isosorbide Dinitrate 10 mg 10/01/21 22:00 10/02/21 09:35 Isosorbide Dinitrate 10 Mg Tab PO Not Given BID [facility] Metoprolol Tartrate 25 mg 10/01/21 22:00 10/02/21 09:35 Metoprolol Tartrate 25 Mg Tab PO Not Given BID [facility] Morphine Sulfate 2 mg 09/30/21 13:14 10/01/21 03:35 Morphine 2 Mg/1 Ml Inj IV 2 mg Q4H PRN Administration Pain, Moderate (4-6) Ondansetron HCl 4 mg 09/30/21 13:14 Ondansetron 4 Mg/2 Ml Inj IV Q8H PRN Nausea And Vomiting Pantoprazole Sodium 40 mg 10/02/21 07:30 10/02/21 09:33 Pantoprazole 40 Mg Tab PO 40 mg QDAC [facility]U Administration Ranolazine 500 mg 10/01/21 22:00 10/02/21 09:30 Ranolazine Er 500 Mg Tab 12hr PO 500 mg BID [facility] Administration Venlafaxine HCl 37.5 mg 10/02/21 10:00 10/02/21 09:31 Venlafaxine 37.5 Mg Tab PO 37.5 mg QDAY [facility] Administration Vitamin E 200 unit 10/01/21 12:00 10/02/21 09:30 Tocopherol 200 Unit Cap PO 200 unit QDAY [facility] Administration Warfarin Sodium 5 mg 10/02/21 17:00 Warfarin 5 Mg Tab PO DAILY@1700 [facility] Protocol
--- NOTE | 2021-10-02 14:16 | Progress Note ---
Assessment and Plan The patient is s/p thrombolysis of his left leg with revascularization of his tibial vessels. His foot is well perfused and he has no evidence of compartment syndrome. Increase activity Monitor thrombocytopenia Continue Argatroban drip and coumadin until INR is 4 and then can stop Argatroban gtt to confirm that INR is between 2-3 Must remain in hospital until INR is therapeutic Zan likely transfer to Telemetry tomorrow Subjective Date of service: 10/02/21 Principal diagnosis: Acute arterial occlusion left leg Interval history: The patient states his left foot is feeling good. He has no complaints at this time. Objective - Constitutional Vitals: Vital Signs - 12hr 10/02/21 10/02/21 10/02/21 03:00 04:00 05:00 Temperature 97.8 F Pulse Rate 70 83 74 Respiratory 26 H 16 15 Rate Blood Pressure 108/75 102/61 106/72 O2 Sat by Pulse 96 94 98 Oximetry 10/02/21 10/02/21 10/02/21 06:00 07:00 08:00 Temperature 97.4 F L Pulse Rate 72 68 73 Respiratory 19 17 12 Rate Blood Pressure 116/69 108/62 105/57 O2 Sat by Pulse 98 96 98 Oximetry 10/02/21 10/02/21 10/02/21 09:00 09:35 10:00 Temperature Pulse Rate 61 65 63 Respiratory 17 16 Rate Blood Pressure 101/57 98/47 98/47 O2 Sat by Pulse 95 96 Oximetry 10/02/21 10/02/21 10/02/21 11:00 12:00 13:01 Temperature 97.8 F Pulse Rate 72 64 76 Respiratory 21 21 14 Rate Blood Pressure 117/71 100/52 100/52 O2 Sat by Pulse 95 95 96 Oximetry 10/02/21 14:00 Temperature Pulse Rate 60 Respiratory 21 Rate Blood Pressure 96/58 O2 Sat by Pulse 97 Oximetry General appearance: Present: no acute distress - Respiratory Respiratory effort: normal - Cardiovascular Rhythm: regular Extremities: pulses intact (palpable left PT and DP), normal temperature (left foot is warm with some spotty cyanoyic areas), abnormal (right groin with ecchymosis but no hematoma) Extremity abnormal: edema (left foot with reperfusion edema) - Labs CBC & Chem 7: 10/02/21 05:44 10/02/21 05:44 Labs: Abnormal lab results 0710/02/21 10/02/21 Range/Units 15:07 05:44 05:44 Hgb 11.5 L (11.8-15.2) gm/dl Hct 33.5 L (35.5-45.6) % Plt Count 91 L (140-440) K/mm3 PT 22.4 H (12.2-14.9) Sec. INR 1.69 H (0.87-1.13) APTT 59.8 H 52.2 H (24.2-36.6) Sec. Sodium (137-145) mmol/L BUN (9-20) mg/dL Creatinine (0.8-1.3) mg/dL Glucose (75-100) mg/dL Total Protein (6.3-8.2) g/dL Albumin (3.9-5) g/dL 10/02/21 Range/Units 05:44 Hgb (11.8-15.2) gm/dl Hct (35.5-45.6) % Plt Count (140-440) K/mm3 PT (12.2-14.9) Sec. INR (0.87-1.13) APTT (24.2-36.6) Sec. Sodium 135 L (137-145) mmol/L BUN 8 L (9-20) mg/dL Creatinine 0.5 L (0.8-1.3) mg/dL Glucose 128 H (75-100) mg/dL Total Protein 6.1 L (6.3-8.2) g/dL Albumin 2.9 L (3.9-5) g/dL Medications & Allergies - Medications Allergies/Adverse Reactions: Allergies procaine [From Novocain] Allergy (Verified 06/23/21 16:08) Blacks out heparin Adverse Reaction (Verified 06/23/21 16:08) BLOOD CLOTS Home Medications: Home Medications Medication Instructions Recorded Confirmed Last Taken Type Aspirin [Adult Aspirin] 81 mg PO DAILY 12/03/20 09/30/21 09/29/21 History 81 mg AtorvaSTATin [Lipitor] 40 mg PO QHS 12/03/20 09/30/21 09/29/21 History 40 mg Isosorbide Dinitrate [Isordil] 10 mg PO BID #60 tablet 12/09/20 09/30/21 09/29/21 Rx 10 mg Apixaban [Eliquis] 5 mg PO BID 02/15/21 09/30/21 09/29/21 History 5 mg Metoprolol [Lopressor TAB] 25 mg PO BID 02/15/21 09/30/21 09/29/21 History 25 mg Venlafaxine [Effexor 37.5mg tab] 37.5 mg PO QDAY 02/15/21 09/30/21 09/29/21 History 37.5mg Clopidogrel [Plavix] 75 mg PO QDAY #90 tablet 02/19/21 09/30/21 09/29/21 Rx 75 mg Ranolazine ER [Ranexa ER] 500 mg PO BID 05/25/21 09/30/21 09/29/21 History 500 mg Vitamin E (Dl,Tocopheryl Acet) 180 mg PO DAILY 06/23/21 09/30/21 09/29/21 History [Vitamin E] 180 mg Active Medications: Generic Name Dose Route Start Last Admin Trade Name Freq PRN Reason Stop Dose Admin Acetaminophen 650 mg 09/30/21 13:14 Acetaminophen 325 Mg Tab PO Q6H PRN Pain, Mild (1-3) Hydrocodone Bitart/Acetaminophen 2 each 09/30/21 13:14 10/02/21 06:19 Hydrocodone/Acetaminophen 5-325 Mg Tab PO 2 each Q6H PRN Administration Pain, Moderate (4-6) Aspirin 81 mg 10/02/21 10:00 10/02/21 09:33 Aspirin Ec 81 Mg Tab PO 81 mg DAILY S[facility]U Administration Atorvastatin Calcium 40 mg 10/01/21 22:00 10/01/21 21:53 Atorvastatin 40 Mg Tab PO 40 mg QHS [facility]U Administration Clopidogrel Bisulfate 75 mg 10/02/21 10:00 10/02/21 09:33 Clopidogrel 75 Mg Tab PO 75 mg QDAY [facility] Administration Folic Acid 1 mg 10/02/21 10:00 10/02/21 09:33 Folic Acid 1 Mg Tab PO 1 mg QDAY [facility] Administration Hydromorphone HCl 0.5 mg 09/30/21 13:14 10/01/21 15:55 Hydromorphone 0.5 Mg/0.5 Ml Inj IV 0.5 mg Q3H PRN Administration Pain , Severe (7-10) Argatroban 250 mg/ Sodium 250 mls @ 4.572 mls/hr 10/01/21 12:00 10/01/21 16:44 Chloride IV 1 mcg/kg/min TITR S[facility]U 4.572 mls/hr Titration Protocol 1 MCG/KG/MIN Isosorbide Dinitrate 10 mg 10/01/21 22:00 10/02/21 09:35 Isosorbide Dinitrate 10 Mg Tab PO Not Given BID [facility] Metoprolol Tartrate 25 mg 10/01/21 22:00 10/02/21 09:35 Metoprolol Tartrate 25 Mg Tab PO Not Given BID [facility] Morphine Sulfate 2 mg 09/30/21 13:14 10/01/21 03:35 Morphine 2 Mg/1 Ml Inj IV 2 mg Q4H PRN Administration Pain, Moderate (4-6) Ondansetron HCl 4 mg 09/30/21 13:14 Ondansetron 4 Mg/2 Ml Inj IV Q8H PRN Nausea And Vomiting Pantoprazole Sodium 40 mg 10/02/21 07:30 10/02/21 09:33 Pantoprazole 40 Mg Tab PO 40 mg QDAC [facility] Administration Ranolazine 500 mg 10/01/21 22:00 10/02/21 09:30 Ranolazine Er 500 Mg Tab 12hr PO 500 mg BID [facility] Administration Venlafaxine HCl 37.5 mg 10/02/21 10:00 10/02/21 09:31 Venlafaxine 37.5 Mg Tab PO 37.5 mg QDAY [facility] Administration Vitamin E 200 unit 10/01/21 12:00 10/02/21 09:30 Tocopherol 200 Unit Cap PO 200 unit QDAY [facility] Administration Warfarin Sodium 5 mg 10/02/21 17:00 Warfarin 5 Mg Tab PO DAILY@1700 [facility] Protocol
[2021-10-02] MEDS: WARFARIN 5 MG TAB PO SCH (17:15)
[2021-10-02] MEDS: ARGATROBAN 250 MG in SODIUM CHLORIDE 0.9% 250ML 247.5 ML IV SCH (18:04)
[2021-10-02] MEDS: ACETAMINOPHEN 325 MG TAB PO PRN (21:28)
[2021-10-03 04:51] LABS: Hematocrit 34.3 % (35.5-45.6); Hemoglobin 11.2 gm/dl (11.8-15.2); Mean Corpuscular HGB Conc 33 % (32-34); Mean Corpuscular Volume 91 fl (84-94); Platelet Count 100 K/mm3 (140-440); Red Blood Count 3.77 M/mm3 (3.65-5.03); Red Cell Distribution Width 14.8 % (13.2-15.2)
[2021-10-03 04:57] LABS: INR 2.03 (0.87-1.13)
[2021-10-03 04:58] LABS: Partial Thromboplastin Time 49.9 Sec. (24.2-36.6)
[2021-10-03 05:10] LABS: Alanine Aminotransferase 12 units/L (7-56); Albumin 2.8 g/dL (3.9-5); Blood Urea Nitrogen 6 mg/dL (9-20); Calcium 8.8 mg/dL (8.4-10.2); Hemolysis Index 8
[2021-10-03 05:18] LABS: BUN/Creatinine Ratio 12
[2021-10-03] MEDS: VENLAFAXINE 37.5 MG TAB PO SCH (09:27)
[2021-10-03] MEDS: TOCOPHEROL 200 UNIT CAP PO SCH (09:27)
[2021-10-03] MEDS: CLOPIDOGREL 75 MG TAB PO SCH (09:27)
[2021-10-03] MEDS: ASPIRIN EC 81 MG TAB PO SCH (09:28)
[2021-10-03] MEDS: RANOLAZINE ER 500 MG TAB 12HR PO SCH ×2 (09:28→22:55)
[2021-10-03] MEDS: PANTOPRAZOLE 40 MG TAB PO SCH (09:28)
[2021-10-03] MEDS: FOLIC ACID 1 MG TAB PO SCH (09:28)
[2021-10-03] MEDS: ISOSORBIDE DINITRATE 10 MG TAB PO SCH ×2 (09:29→22:53)
[2021-10-03] MEDS: METOPROLOL TARTRATE 25 MG TAB PO SCH ×2 (09:31→22:53)
--- NOTE | 2021-10-03 12:25 | Progress Note ---
Assessment and Plan 66 y/o male with PVD 10/03/21: Will continue to follow while in unit, if transferred out today will sign off. 10/02/21: Follow up vascular recs. Stable pulm status. Ordered hypercoag work up. 1. BP control 2. Follow up vascular recs 3. Continue home meds Subjective Date of service: 10/03/21 Principal diagnosis: Acute arterial occlusion left leg Interval history: No acute events. Vascular evaluating Objective - Constitutional Vitals: Vital Signs - 12hr 10/03/21 10/03/21 10/03/21 01:00 02:01 03:00 Temperature Pulse Rate 48 L 69 49 L Respiratory 18 14 19 Rate Blood Pressure 102/51 100/52 119/69 O2 Sat by Pulse 97 98 98 Oximetry 10/03/21 10/03/21 10/03/21 04:00 05:01 06:01 Temperature 96.7 F L Pulse Rate 55 L 67 72 Respiratory 14 19 18 Rate Blood Pressure 126/67 126/69 105/64 O2 Sat by Pulse 100 97 98 Oximetry 10/03/21 10/03/21 10/03/21 07:01 07:47 08:00 Temperature 97.5 F L Pulse Rate 66 68 Respiratory 21 23 Rate Blood Pressure 135/72 O2 Sat by Pulse 96 95 Oximetry 10/03/21 10/03/21 10/03/21 08:01 09:01 09:29 Temperature Pulse Rate 68 95 H 67 Respiratory 23 21 Rate Blood Pressure 137/71 123/67 106/70 O2 Sat by Pulse 92 97 Oximetry 10/03/21 10/03/21 10/03/21 09:31 10:01 11:50 Temperature 99.1 F Pulse Rate 65 82 Respiratory 11 L Rate Blood Pressure 97/63 97/63 O2 Sat by Pulse 99 Oximetry - Labs CBC & Chem 7: 10/03/21 04:19 10/03/21 04:19 Labs: Abnormal lab results 10/02/21 10/03/21 10/03/21 Range/Units 18:04 04:19 04:19 WBC 3.5 L (4.5-11.0) K/mm3 Hgb 11.2 L (11.8-15.2) gm/dl Hct 34.3 L (35.5-45.6) % Plt Count 100 L (140-440) K/mm3 PT 25.6 H (12.2-14.9) Sec. INR 2.03 H (0.87-1.13) APTT 50.3 H 49.9 H (24.2-36.6) Sec. BUN (9-20) mg/dL Creatinine (0.8-1.3) mg/dL Total Protein (6.3-8.2) g/dL Albumin (3.9-5) g/dL 10/03/21 Range/Units 04:19 WBC (4.5-11.0) K/mm3 Hgb (11.8-15.2) gm/dl Hct (35.5-45.6) % Plt Count (140-440) K/mm3 PT (12.2-14.9) Sec. INR (0.87-1.13) APTT (24.2-36.6) Sec. BUN 6 L (9-20) mg/dL Creatinine 0.5 L (0.8-1.3) mg/dL Total Protein 5.9 L (6.3-8.2) g/dL Albumin 2.8 L (3.9-5) g/dL Medications & Allergies - Medications Allergies/Adverse Reactions: Allergies procaine [From Novocain] Allergy (Verified 06/23/21 16:08) Blacks out heparin Adverse Reaction (Verified 06/23/21 16:08) BLOOD CLOTS Home Medications: Home Medications Medication Instructions Recorded Confirmed Last Taken Type Aspirin [Adult Aspirin] 81 mg PO DAILY 12/03/20 09/30/21 09/29/21 History 81 mg AtorvaSTATin [Lipitor] 40 mg PO QHS 12/03/20 09/30/21 09/29/21 History 40 mg Isosorbide Dinitrate [Isordil] 10 mg PO BID #60 tablet 12/09/20 09/30/21 09/29/21 Rx 10 mg Apixaban [Eliquis] 5 mg PO BID 02/15/21 09/30/21 09/29/21 History 5 mg Metoprolol [Lopressor TAB] 25 mg PO BID 02/15/21 09/30/21 09/29/21 History 25 mg Venlafaxine [Effexor 37.5mg tab] 37.5 mg PO QDAY 02/15/21 09/30/21 09/29/21 History 37.5mg Clopidogrel [Plavix] 75 mg PO QDAY #90 tablet 02/19/21 09/30/21 09/29/21 Rx 75 mg Ranolazine ER [Ranexa ER] 500 mg PO BID 05/25/21 09/30/21 09/29/21 History 500 mg Vitamin E (Dl,Tocopheryl Acet) 180 mg PO DAILY 06/23/21 09/30/21 09/29/21 History [Vitamin E] 180 mg Active Medications: Generic Name Dose Route Start Last Admin Trade Name Freq PRN Reason Stop Dose Admin Acetaminophen 650 mg 09/30/21 13:14 10/02/21 21:28 Acetaminophen 325 Mg Tab PO 650 mg Q6H PRN Administration Pain, Mild (1-3) Hydrocodone Bitart/Acetaminophen 2 each 09/30/21 13:14 10/02/21 06:19 Hydrocodone/Acetaminophen 5-325 Mg Tab PO 2 each Q6H PRN Administration Pain, Moderate (4-6) Aspirin 81 mg 10/02/21 10:00 10/03/21 09:28 Aspirin Ec 81 Mg Tab PO 81 mg DAILY [facility]U Administration Atorvastatin Calcium 40 mg 10/01/21 22:00 10/02/21 21:28 Atorvastatin 40 Mg Tab PO 40 mg QHS [facility]U Administration Clopidogrel Bisulfate 75 mg 10/02/21 10:00 10/03/21 09:27 Clopidogrel 75 Mg Tab PO 75 mg QDAY [facility] Administration Folic Acid 1 mg 10/02/21 10:00 10/03/21 09:28 Folic Acid 1 Mg Tab PO 1 mg QDAY [facility] Administration Hydromorphone HCl 0.5 mg 09/30/21 13:14 10/01/21 15:55 Hydromorphone 0.5 Mg/0.5 Ml Inj IV 0.5 mg Q3H PRN Administration Pain , Severe (7-10) Argatroban 250 mg/ Sodium 250 mls @ 4.572 mls/hr 10/01/21 12:00 10/03/21 05:03 Chloride IV 1 mcg/kg/min TITR SUSU 4.572 mls/hr Titration Protocol 1 MCG/KG/MIN Isosorbide Dinitrate 10 mg 10/01/21 22:00 10/03/21 09:29 Isosorbide Dinitrate 10 Mg Tab PO 10 mg BID [facility] Administration Metoprolol Tartrate 25 mg 10/01/21 22:00 10/03/21 09:31 Metoprolol Tartrate 25 Mg Tab PO Not Given BID [facility] Morphine Sulfate 2 mg 09/30/21 13:14 10/01/21 03:35 Morphine 2 Mg/1 Ml Inj IV 2 mg Q4H PRN Administration Pain, Moderate (4-6) Ondansetron HCl 4 mg 09/30/21 13:14 Ondansetron 4 Mg/2 Ml Inj IV Q8H PRN Nausea And Vomiting Pantoprazole Sodium 40 mg 10/02/21 07:30 10/03/21 09:28 Pantoprazole 40 Mg Tab PO 40 mg QDAC [facility] Administration Ranolazine 500 mg 10/01/21 22:00 10/03/21 09:28 Ranolazine Er 500 Mg Tab 12hr PO 500 mg BID SUSU Administration Venlafaxine HCl 37.5 mg 10/02/21 10:00 10/03/21 09:27 Venlafaxine 37.5 Mg Tab PO 37.5 mg QDAY [facility] Administration Vitamin E 200 unit 10/01/21 12:00 10/03/21 09:27 Tocopherol 200 Unit Cap PO 200 unit QDAY [facility] Administration Warfarin Sodium 5 mg 10/02/21 17:00 10/02/21 17:15 Warfarin 5 Mg Tab PO 5 mg DAILY@1700 [facility] Administration Protocol
--- NOTE | 2021-10-03 13:34 | Progress Note ---
Assessment and Plan The patient is doing well status post revascularization of the left lower extremity. He continues to have palpable pulses. He has no complaints of pain or numbness to the foot. He has increased his activity and is doing well. Awaiting increase of the INR to 4.0 so that the argatroban drip can be stopped. After stopping argatroban drip the INR will be rechecked with a goal INR on Coumadin of 2-3. The patient can be discharged at that point. We will transfer to telemetry. Subjective Date of service: 10/03/21 Principal diagnosis: Acute arterial occlusion left leg Interval history: No complaints at this time. Objective - Constitutional Vitals: Vital Signs - 12hr 10/03/21 10/03/21 10/03/21 02:01 03:00 04:00 Temperature 96.7 F L Pulse Rate 69 49 L 55 L Respiratory 14 19 14 Rate Blood Pressure 100/52 119/69 126/67 O2 Sat by Pulse 98 98 100 Oximetry 10/03/21 10/03/21 10/03/21 05:01 06:01 07:01 Temperature Pulse Rate 67 72 66 Respiratory 19 18 21 Rate Blood Pressure 126/69 105/64 135/72 O2 Sat by Pulse 97 98 96 Oximetry 10/03/21 10/03/21 10/03/21 07:47 08:00 08:01 Temperature 97.5 F L Pulse Rate 68 68 Respiratory 23 23 Rate Blood Pressure 137/71 O2 Sat by Pulse 95 92 Oximetry 10/03/21 10/03/21 10/03/21 09:01 09:29 09:31 Temperature Pulse Rate 95 H 67 65 Respiratory 21 Rate Blood Pressure 123/67 106/70 97/63 O2 Sat by Pulse 97 Oximetry 10/03/21 10/03/21 10:01 11:50 Temperature 99.1 F Pulse Rate 82 Respiratory 11 L Rate Blood Pressure 97/63 O2 Sat by Pulse 99 Oximetry General appearance: Present: no acute distress - Respiratory Respiratory effort: normal - Cardiovascular Rhythm: regular Extremities: pulses intact (palpable left DP/PT), normal temperature Extremity abnormal: other (right groin without hematoma, ecchymosis is present) - Gastrointestinal Rectal Exam: deferred - Genitourinary Male genitourinary: deferred - Labs CBC & Chem 7: 10/03/21 04:19 10/03/21 04:19 Labs: Abnormal lab results 10/02/21 10/03/21 10/03/21 Range/Units 18:04 04:19 04:19 WBC 3.5 L (4.5-11.0) K/mm3 Hgb 11.2 L (11.8-15.2) gm/dl Hct 34.3 L (35.5-45.6) % Plt Count 100 L (140-440) K/mm3 PT 25.6 H (12.2-14.9) Sec. INR 2.03 H (0.87-1.13) APTT 50.3 H 49.9 H (24.2-36.6) Sec. BUN (9-20) mg/dL Creatinine (0.8-1.3) mg/dL Total Protein (6.3-8.2) g/dL Albumin (3.9-5) g/dL 10/03/21 Range/Units 04:19 WBC (4.5-11.0) K/mm3 Hgb (11.8-15.2) gm/dl Hct (35.5-45.6) % Plt Count (140-440) K/mm3 PT (12.2-14.9) Sec. INR (0.87-1.13) APTT (24.2-36.6) Sec. BUN 6 L (9-20) mg/dL Creatinine 0.5 L (0.8-1.3) mg/dL Total Protein 5.9 L (6.3-8.2) g/dL Albumin 2.8 L (3.9-5) g/dL Medications & Allergies - Medications Allergies/Adverse Reactions: Allergies procaine [From Novocain] Allergy (Verified 06/23/21 16:08) Blacks out heparin Adverse Reaction (Verified 06/23/21 16:08) BLOOD CLOTS Home Medications: Home Medications Medication Instructions Recorded Confirmed Last Taken Type Aspirin [Adult Aspirin] 81 mg PO DAILY 12/03/20 09/30/21 09/29/21 History 81 mg AtorvaSTATin [Lipitor] 40 mg PO QHS 12/03/20 09/30/21 09/29/21 History 40 mg Isosorbide Dinitrate [Isordil] 10 mg PO BID #60 tablet 12/09/20 09/30/21 09/29/21 Rx 10 mg Apixaban [Eliquis] 5 mg PO BID 02/15/21 09/30/21 09/29/21 History 5 mg Metoprolol [Lopressor TAB] 25 mg PO BID 02/15/21 09/30/21 09/29/21 History 25 mg Venlafaxine [Effexor 37.5mg tab] 37.5 mg PO QDAY 02/15/21 09/30/21 09/29/21 History 37.5mg Clopidogrel [Plavix] 75 mg PO QDAY #90 tablet 02/19/21 09/30/21 09/29/21 Rx 75 mg Ranolazine ER [Ranexa ER] 500 mg PO BID 05/25/21 09/30/21 09/29/21 History 500 mg Vitamin E (Dl,Tocopheryl Acet) 180 mg PO DAILY 06/23/21 09/30/21 09/29/21 History [Vitamin E] 180 mg Active Medications: Generic Name Dose Route Start Last Admin Trade Name Freq PRN Reason Stop Dose Admin Acetaminophen 650 mg 09/30/21 13:14 10/02/21 21:28 Acetaminophen 325 Mg Tab PO 650 mg Q6H PRN Administration Pain, Mild (1-3) Hydrocodone Bitart/Acetaminophen 2 each 09/30/21 13:14 10/02/21 06:19 Hydrocodone/Acetaminophen 5-325 Mg Tab PO 2 each Q6H PRN Administration Pain, Moderate (4-6) Aspirin 81 mg 10/02/21 10:00 10/03/21 09:28 Aspirin Ec 81 Mg Tab PO 81 mg DAILY SUSU Administration Atorvastatin Calcium 40 mg 10/01/21 22:00 10/02/21 21:28 Atorvastatin 40 Mg Tab PO 40 mg QHS SUSU Administration Clopidogrel Bisulfate 75 mg 10/02/21 10:00 10/03/21 09:27 Clopidogrel 75 Mg Tab PO 75 mg QDAY SUSU Administration Folic Acid 1 mg 10/02/21 10:00 10/03/21 09:28 Folic Acid 1 Mg Tab PO 1 mg QDAY SUSU Administration Hydromorphone HCl 0.5 mg 09/30/21 13:14 10/01/21 15:55 Hydromorphone 0.5 Mg/0.5 Ml Inj IV 0.5 mg Q3H PRN Administration Pain , Severe (7-10) Argatroban 250 mg/ Sodium 250 mls @ 4.572 mls/hr 10/01/21 12:00 10/03/21 05:03 Chloride IV 1 mcg/kg/min TITR SUSU 4.572 mls/hr Titration Protocol 1 MCG/KG/MIN Isosorbide Dinitrate 10 mg 10/01/21 22:00 10/03/21 09:29 Isosorbide Dinitrate 10 Mg Tab PO 10 mg BID SUSU Administration Metoprolol Tartrate 25 mg 10/01/21 22:00 10/03/21 09:31 Metoprolol Tartrate 25 Mg Tab PO Not Given BID [facility] Morphine Sulfate 2 mg 09/30/21 13:14 10/01/21 03:35 Morphine 2 Mg/1 Ml Inj IV 2 mg Q4H PRN Administration Pain, Moderate (4-6) Ondansetron HCl 4 mg 09/30/21 13:14 Ondansetron 4 Mg/2 Ml Inj IV Q8H PRN Nausea And Vomiting Pantoprazole Sodium 40 mg 10/02/21 07:30 10/03/21 09:28 Pantoprazole 40 Mg Tab PO 40 mg QDAC [facility] Administration Ranolazine 500 mg 10/01/21 22:00 10/03/21 09:28 Ranolazine Er 500 Mg Tab 12hr PO 500 mg BID [facility] Administration Venlafaxine HCl 37.5 mg 10/02/21 10:00 10/03/21 09:27 Venlafaxine 37.5 Mg Tab PO 37.5 mg QDAY [facility] Administration Vitamin E 200 unit 10/01/21 12:00 10/03/21 09:27 Tocopherol 200 Unit Cap PO 200 unit QDAY [facility] Administration Warfarin Sodium 5 mg 10/02/21 17:00 10/02/21 17:15 Warfarin 5 Mg Tab PO 5 mg DAILY@1700 [facility] Administration Protocol
[2021-10-03] MEDS: ACETAMINOPHEN 325 MG TAB PO PRN (16:02)
[2021-10-03] MEDS: WARFARIN 5 MG TAB PO SCH (16:02)
[2021-10-04] MEDS: HYDROcodone/ACETAMINOPHEN 5-325 MG TAB PO PRN (00:58)
[2021-10-04 06:29] LABS: Hematocrit 32.7 % (35.5-45.6); Hemoglobin 11.1 gm/dl (11.8-15.2); Mean Corpuscular HGB Conc 34 % (32-34); Mean Corpuscular Volume 91 fl (84-94); Platelet Count 112 K/mm3 (140-440); Red Blood Count 3.61 M/mm3 (3.65-5.03); Red Cell Distribution Width 14.4 % (13.2-15.2)
[2021-10-04 06:39] LABS: INR 2.07 (0.87-1.13)
[2021-10-04 06:40] LABS: Partial Thromboplastin Time 56.8 Sec. (24.2-36.6)
[2021-10-04 06:47] LABS: Alanine Aminotransferase 11 units/L (7-56); Albumin 2.8 g/dL (3.9-5); Blood Urea Nitrogen 8 mg/dL (9-20); Calcium 8.4 mg/dL (8.4-10.2); Hemolysis Index 3
[2021-10-04 06:52] LABS: BUN/Creatinine Ratio 16
--- NOTE | 2021-10-04 08:55 | Progress Note ---
Assessment and Plan 66 y/o male with PVD 10/04/21: Will sign off. Call if questions or concerns. 10/03/21: Will continue to follow while in unit, if transferred out today will sign off. 10/02/21: Follow up vascular recs. Stable pulm status. Ordered hypercoag work up. 1. BP control 2. Follow up vascular recs 3. Continue home meds Subjective Date of service: 10/04/21 Principal diagnosis: Acute arterial occlusion left leg Interval history: Successful transfer out of unit. Stable pulm status. Objective - Constitutional Vitals: Vital Signs - 12hr 10/03/21 10/03/21 10/04/21 22:00 22:53 00:15 Temperature 97.1 F L Pulse Rate 54 L 57 L 51 L Pulse Rate [ 54 L Right Popliteal ] Respiratory 16 17 Rate Blood Pressure 120/67 [Left] O2 Sat by Pulse 98 97 Oximetry 10/04/21 10/04/21 10/04/21 02:00 05:13 05:14 Temperature 97.6 F Pulse Rate 95 H 52 L 56 L Pulse Rate [ Right Popliteal ] Respiratory 17 17 Rate Blood Pressure 114/85 [Left] O2 Sat by Pulse 99 97 Oximetry 10/04/21 08:00 Temperature 96.7 F L Pulse Rate 50 L Pulse Rate [ Right Popliteal ] Respiratory 16 Rate Blood Pressure 133/70 [Left] O2 Sat by Pulse 97 Oximetry - Labs CBC & Chem 7: 10/04/21 05:53 10/04/21 05:53 Labs: Abnormal lab results 10/03/21 10/04/21 10/04/21 Range/Units 17:45 05:53 05:53 WBC 2.6 L (4.5-11.0) K/mm3 RBC 3.61 L (3.65-5.03) M/mm3 Hgb 11.1 L (11.8-15.2) gm/dl Hct 32.7 L (35.5-45.6) % Plt Count 112 L (140-440) K/mm3 PT 26.0 H (12.2-14.9) Sec. INR 2.07 H (0.87-1.13) APTT 54.4 H 56.8 H (24.2-36.6) Sec. BUN (9-20) mg/dL Creatinine (0.8-1.3) mg/dL Total Protein (6.3-8.2) g/dL Albumin (3.9-5) g/dL 10/04/21 Range/Units 05:53 WBC (4.5-11.0) K/mm3 RBC (3.65-5.03) M/mm3 Hgb (11.8-15.2) gm/dl Hct (35.5-45.6) % Plt Count (140-440) K/mm3 PT (12.2-14.9) Sec. INR (0.87-1.13) APTT (24.2-36.6) Sec. BUN 8 L (9-20) mg/dL Creatinine 0.5 L (0.8-1.3) mg/dL Total Protein 5.7 L (6.3-8.2) g/dL Albumin 2.8 L (3.9-5) g/dL Medications & Allergies - Medications Allergies/Adverse Reactions: Allergies procaine [From Novocain] Allergy (Verified 06/23/21 16:08) Blacks out heparin Adverse Reaction (Verified 06/23/21 16:08) BLOOD CLOTS Home Medications: Home Medications Medication Instructions Recorded Confirmed Last Taken Type Aspirin [Adult Aspirin] 81 mg PO DAILY 12/03/20 09/30/21 09/29/21 History 81 mg AtorvaSTATin [Lipitor] 40 mg PO QHS 12/03/20 09/30/21 09/29/21 History 40 mg Isosorbide Dinitrate [Isordil] 10 mg PO BID #60 tablet 12/09/20 09/30/21 09/29/21 Rx 10 mg Apixaban [Eliquis] 5 mg PO BID 02/15/21 09/30/21 09/29/21 History 5 mg Metoprolol [Lopressor TAB] 25 mg PO BID 02/15/21 09/30/21 09/29/21 History 25 mg Venlafaxine [Effexor 37.5mg tab] 37.5 mg PO QDAY 02/15/21 09/30/21 09/29/21 History 37.5mg Clopidogrel [Plavix] 75 mg PO QDAY #90 tablet 02/19/21 09/30/21 09/29/21 Rx 75 mg Ranolazine ER [Ranexa ER] 500 mg PO BID 05/25/21 09/30/21 09/29/21 History 500 mg Vitamin E (Dl,Tocopheryl Acet) 180 mg PO DAILY 06/23/21 09/30/21 09/29/21 History [Vitamin E] 180 mg Active Medications: Generic Name Dose Route Start Last Admin Trade Name Freq PRN Reason Stop Dose Admin Acetaminophen 650 mg 09/30/21 13:14 10/03/21 16:02 Acetaminophen 325 Mg Tab PO 650 mg Q6H PRN Administration Pain, Mild (1-3) Hydrocodone Bitart/Acetaminophen 2 each 09/30/21 13:14 10/04/21 00:58 Hydrocodone/Acetaminophen 5-325 Mg Tab PO 2 each Q6H PRN Administration Pain, Moderate (4-6) Aspirin 81 mg 10/02/21 10:00 10/03/21 09:28 Aspirin Ec 81 Mg Tab PO 81 mg DAILY SUSU Administration Atorvastatin Calcium 40 mg 10/01/21 22:00 10/03/21 22:54 Atorvastatin 40 Mg Tab PO 40 mg QHS [facility]USU Administration Clopidogrel Bisulfate 75 mg 10/02/21 10:00 10/03/21 09:27 Clopidogrel 75 Mg Tab PO 75 mg QDAY [facility] Administration Folic Acid 1 mg 10/02/21 10:00 10/03/21 09:28 Folic Acid 1 Mg Tab PO 1 mg QDAY [facility] Administration Hydromorphone HCl 0.5 mg 09/30/21 13:14 10/01/21 15:55 Hydromorphone 0.5 Mg/0.5 Ml Inj IV 0.5 mg Q3H PRN Administration Pain , Severe (7-10) Argatroban 250 mg/ Sodium 250 mls @ 4.572 mls/hr 10/01/21 12:00 10/03/21 18:54 Chloride IV 1 mcg/kg/min TITR [facility]USU 4.572 mls/hr Titration Protocol 1 MCG/KG/MIN Isosorbide Dinitrate 10 mg 10/01/21 22:00 10/03/21 22:53 Isosorbide Dinitrate 10 Mg Tab PO Not Given BID [facility] Metoprolol Tartrate 25 mg 10/01/21 22:00 10/03/21 22:53 Metoprolol Tartrate 25 Mg Tab PO Not Given BID [facility] Morphine Sulfate 2 mg 09/30/21 13:14 10/01/21 03:35 Morphine 2 Mg/1 Ml Inj IV 2 mg Q4H PRN Administration Pain, Moderate (4-6) Ondansetron HCl 4 mg 09/30/21 13:14 Ondansetron 4 Mg/2 Ml Inj IV Q8H PRN Nausea And Vomiting Pantoprazole Sodium 40 mg 10/02/21 07:30 10/03/21 09:28 Pantoprazole 40 Mg Tab PO 40 mg QDAC [facility] Administration Ranolazine 500 mg 10/01/21 22:00 10/03/21 22:55 Ranolazine Er 500 Mg Tab 12hr PO 500 mg BID [facility] Administration Venlafaxine HCl 37.5 mg 10/02/21 10:00 10/03/21 09:27 Venlafaxine 37.5 Mg Tab PO 37.5 mg QDAY [facility] Administration Vitamin E 200 unit 10/01/21 12:00 10/03/21 09:27 Tocopherol 200 Unit Cap PO 200 unit QDAY [facility] Administration Warfarin Sodium 5 mg 10/02/21 17:00 10/03/21 16:02 Warfarin 5 Mg Tab PO 5 mg DAILY@1700 [facility] Administration Protocol
[2021-10-04] MEDS: CLOPIDOGREL 75 MG TAB PO SCH (09:30)
[2021-10-04] MEDS: RANOLAZINE ER 500 MG TAB 12HR PO SCH ×2 (09:30→21:26)
[2021-10-04] MEDS: FOLIC ACID 1 MG TAB PO SCH (09:30)
[2021-10-04] MEDS: ASPIRIN EC 81 MG TAB PO SCH (09:30)
--- NOTE | 2021-10-04 09:35 | Hem/Onc Consultation ---
History of Present Illness - Reason for Consult Consult date: 10/04/21 Arterial occlusion on Eliquis - History of Present Illness Heme Consult Note Seen via amplify CPT 91417 Dx Arterial Occlusion This is a 66yo male who presented to [facility] for removal of EKOS thrombolysis catheter. Reports complaints of progressively worsening left lower extremity numbness and pain despite recent endovascular intervention and oral anticoagulation with Eliquis. 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 Upon arrival, physical exam demonstrated no palpable pedal pulses and a cool foot with cyanotic changes. He was brought to the hospital and an angiogram demonstrated occlusion of his recently revascularized SFA and popliteal artery. He had an EKOS thrombolysis catheter placed and returns for removal of the catheter with possible further intervention. Left lower extremity is currently well perfused and with no evidence of compartment syndrome. Paient was started on Argatroban drip and Coumadin. Hematology was consulted for evaluation of anticoagulants. Patient examined at bedside in no acute distress noted, accompanied by . Reports September 24 2020, numbness of both lower extremity, revealing right lower extremity arterial occlusion. Was started on Heparin and caused HIT, requiring lower extremity amputation. Has been on Plavix and Eliquis since September of 2020. Reports compliance with Eliquis 5mg BID. Now with left lower extremity arterial occlusion, s/p EKOS thrombolysis. Reports improvement in lower extremity pain, numbness, and sensation. Admits to around ~40lb weight loss; Correlates to lower extremity pain and stress causing decreased appetite. Reports having a [employer] appointment 11/09/21. Data reviewed below IMP: Clotting tendency, hypercoagulable state Recurrent arterial occlusions Thrombocytopenia, likely related to liver dysfunction, HIT Plan: Labs to include iron studies, pf4 ab, cardiolipin ab Chest/Abd/pel CT to rule out underlying malignancy Continue Argatroban and Warfarin Needs Coumadin clinic follow up plan Must remain in hospital until INR is therapeutic Laboratory Last Values WBC 2.6 K/mm3 (4.5-11.0) L 10/04/21 05:53 Hgb 11.1 gm/dl (11.8-15.2) L 10/04/21 05:53 Hct 32.7 % (35.5-45.6) L 10/04/21 05:53 MCV 91 fl (84-94) 10/04/21 05:53 Plt Count 112 K/mm3 (140-440) L 10/04/21 05:53 [place] % (Auto) 8.8 % (0.0-7.3) H 10/01/21 05:55 PT 26.0 Sec. (12.2-14.9) H 10/04/21 05:53 INR 2.07 (0.87-1.13) H 10/04/21 05:53 APTT 56.8 Sec. (24.2-36.6) H 10/04/21 05:53 Fibrinogen 236 mg/dl (211-480) 10/01/21 05:55 Heparin Anti-Xa Level 0.30 U.I./ml (0.3-0.7) 10/01/21 05:55 Creatinine 0.5 mg/dL (0.8-1.3) L 10/04/21 05:53 AST 21 units/L (5-40) 10/04/21 05:53 ALT 11 units/L (7-56) 10/04/21 05:53 Alkaline Phosphatase 69 units/L (35-129) 10/04/21 05:53 Past History Past Medical History: hypertension, hyperlipidemia Medications and Allergies Allergies Allergy/AdvReac Type Severity Reaction Status Date / Time procaine [From Novocain] Allergy Blacks out Verified 06/23/21 16:08 heparin AdvReac BLOOD CLOTS Verified 06/23/21 16:08 Home Medications Medication Instructions Recorded Confirmed Last Taken Type Aspirin [Adult Aspirin] 81 mg PO DAILY 12/03/20 09/30/21 09/29/21 History 81 mg AtorvaSTATin [Lipitor] 40 mg PO QHS 12/03/20 09/30/21 09/29/21 History 40 mg Isosorbide Dinitrate [Isordil] 10 mg PO BID #60 tablet 12/09/20 09/30/21 09/29/21 Rx 10 mg Apixaban [Eliquis] 5 mg PO BID 02/15/21 09/30/21 09/29/21 History 5 mg Metoprolol [Lopressor TAB] 25 mg PO BID 02/15/21 09/30/21 09/29/21 History 25 mg Venlafaxine [Effexor 37.5mg tab] 37.5 mg PO QDAY 02/15/21 09/30/21 09/29/21 History 37.5mg Clopidogrel [Plavix] 75 mg PO QDAY #90 tablet 02/19/21 09/30/21 09/29/21 Rx 75 mg Ranolazine ER [Ranexa ER] 500 mg PO BID 05/25/21 09/30/21 09/29/21 History 500 mg Vitamin E (Dl,Tocopheryl Acet) 180 mg PO DAILY 06/23/21 09/30/21 09/29/21 History [Vitamin E] 180 mg Active Meds: Active Medications Acetaminophen (Acetaminophen 325 Mg Tab) 650 mg PO Q6H PRN PRN Reason: Pain, Mild (1-3) Last Admin: 10/03/21 16:02 Dose: 650 mg Hydrocodone Bitart/Acetaminophen (Hydrocodone/Acetaminophen 5-325 Mg Tab) 2 each PO Q6H PRN PRN Reason: Pain, Moderate (4-6) Last Admin: 10/04/21 00:58 Dose: 2 each Aspirin (Aspirin Ec 81 Mg Tab) 81 mg PO DAILY [facility] Last Admin: 10/03/21 09:28 Dose: 81 mg Atorvastatin Calcium (Atorvastatin 40 Mg Tab) 40 mg PO QHS [facility] Last Admin: 10/03/21 22:54 Dose: 40 mg Clopidogrel Bisulfate (Clopidogrel 75 Mg Tab) 75 mg PO QDAY [facility] Last Admin: 10/03/21 09:27 Dose: 75 mg Folic Acid (Folic Acid 1 Mg Tab) 1 mg PO QDAY [facility] Last Admin: 10/03/21 09:28 Dose: 1 mg Hydromorphone HCl (Hydromorphone 0.5 Mg/0.5 Ml Inj) 0.5 mg IV Q3H PRN PRN Reason: Pain , Severe (7-10) Last Admin: 10/01/21 15:55 Dose: 0.5 mg Argatroban 250 mg/ Sodium (Chloride) 250 mls @ 4.572 mls/hr IV TITR [facility]; Protocol Last Titration: 10/03/21 18:54 Dose: 1 mcg/kg/min, 4.572 mls/hr Isosorbide Dinitrate (Isosorbide Dinitrate 10 Mg Tab) 10 mg PO BID [facility] Last Admin: 10/03/21 22:53 Dose: Not Given Metoprolol Tartrate (Metoprolol Tartrate 25 Mg Tab) 25 mg PO BID [facility] Last Admin: 10/03/21 22:53 Dose: Not Given Morphine Sulfate (Morphine 2 Mg/1 Ml Inj) 2 mg IV Q4H PRN PRN Reason: Pain, Moderate (4-6) Last Admin: 10/01/21 03:35 Dose: 2 mg Ondansetron HCl (Ondansetron 4 Mg/2 Ml Inj) 4 mg IV Q8H PRN PRN Reason: Nausea And Vomiting Pantoprazole Sodium (Pantoprazole 40 Mg Tab) 40 mg PO QDAC [facility] Last Admin: 10/03/21 09:28 Dose: 40 mg Ranolazine (Ranolazine Er 500 Mg Tab 12hr) 500 mg PO BID [facility] Last Admin: 10/03/21 22:55 Dose: 500 mg Venlafaxine HCl (Venlafaxine 37.5 Mg Tab) 37.5 mg PO QDAY [facility] Last Admin: 10/03/21 09:27 Dose: 37.5 mg Vitamin E (Tocopherol 200 Unit Cap) 200 unit PO QDAY [facility] Last Admin: 10/03/21 09:27 Dose: 200 unit Warfarin Sodium (Warfarin 5 Mg Tab) 5 mg PO DAILY@1700 [facility]; Protocol Last Admin: 10/03/21 16:02 Dose: 5 mg Exam - Constitutional Vitals: Last Vital Signs Temp 96.7 F L 10/04/21 08:00 Pulse 50 L 10/04/21 08:00 Resp 16 10/04/21 08:00 BP 133/70 10/04/21 08:00 Pulse Ox 97 10/04/21 08:00 Results - Labs lab Results: Laboratory Results - last 24 hr 10/03/21 10/04/21 10/04/21 17:45 05:53 05:53 WBC 2.6 L RBC 3.61 L Hgb 11.1 L Hct 32.7 L MCV 91 MCH 31 MCHC 34 RDW 14.4 Plt Count 112 L PT 26.0 H INR 2.07 H APTT 54.4 H 56.8 H Sodium Potassium Chloride Carbon Dioxide Anion Gap BUN Creatinine Estimated GFR BUN/Creatinine Ratio Glucose POC Glucose Calcium Total Bilirubin AST ALT Alkaline Phosphatase Total Protein Albumin Albumin/Globulin Ratio 10/04/21 10/04/21 05:53 08:06 WBC RBC Hgb Hct MCV MCH MCHC RDW Plt Count PT INR APTT Sodium 138 Potassium 3.7 Chloride 104.7 Carbon Dioxide 24 Anion Gap 13 BUN 8 L Creatinine 0.5 L Estimated GFR > 60 BUN/Creatinine Ratio 16 Glucose 98 POC Glucose 91 Calcium 8.4 Total Bilirubin 0.20 AST 21 ALT 11 Alkaline Phosphatase 69 Total Protein 5.7 L Albumin 2.8 L Albumin/Globulin Ratio 1.0
[2021-10-04] MEDS: TOCOPHEROL 200 UNIT CAP PO SCH (13:22)
[2021-10-04] MEDS: VENLAFAXINE 37.5 MG TAB PO SCH (13:22)
--- NOTE | 2021-10-04 14:29 | Progress Note ---
Assessment and Plan 66-year-old male with acute limb ischemia of the left lower extremity status post thrombectomy and thrombolysis with angioplasty with excellent postprocedural result. Patient has palpable left dorsalis pedis pulse and posterior tibial pulse with no compartment syndrome. Discussed limitations with Coumadin. Pharmacist can hopefully further discussed this with patient. Continue argatroban and Coumadin until level therapeutic. Subjective Date of service: 10/04/21 Principal diagnosis: Acute arterial occlusion left leg Interval history: Doing well. Palpable left dorsalis pedis and posterior tibial pulse. Right BKA nearly healed. Some tingling of the toes of the left side. No compartment syndrome. Objective - Constitutional Vitals: Vital Signs - 12hr 10/04/21 10/04/21 10/04/21 05:13 05:14 08:00 Temperature 97.6 F 96.7 F L Pulse Rate 52 L 56 L 50 L Respiratory 17 16 Rate Blood Pressure 114/85 133/70 [Left] O2 Sat by Pulse 97 97 Oximetry 10/04/21 10/04/21 10:00 12:00 Temperature 98 F Pulse Rate 54 L 56 L Respiratory 18 16 Rate Blood Pressure 104/70 [Left] O2 Sat by Pulse 97 97 Oximetry General appearance: Present: no acute distress - EENT Eyes: EOM intact ENT: hearing intact - Respiratory Respiratory effort: normal Extremities: pulses intact (Left dorsalis pedis and posterior tibial), normal temperature, normal color, abnormal (Right BKA) - Gastrointestinal General gastrointestinal: Present: soft, non-tender - Psychiatric Psychiatric: appropriate mood/affect, cooperative - Labs CBC & Chem 7: 10/04/21 05:53 10/04/21 05:53 Labs: Abnormal lab results 10/03/21 10/04/21 10/04/21 Range/Units 17:45 05:53 05:53 WBC 2.6 L (4.5-11.0) K/mm3 RBC 3.61 L (3.65-5.03) M/mm3 Hgb 11.1 L (11.8-15.2) gm/dl Hct 32.7 L (35.5-45.6) % Plt Count 112 L (140-440) K/mm3 PT 26.0 H (12.2-14.9) Sec. INR 2.07 H (0.87-1.13) APTT 54.4 H 56.8 H (24.2-36.6) Sec. BUN (9-20) mg/dL Creatinine (0.8-1.3) mg/dL Total Protein (6.3-8.2) g/dL Albumin (3.9-5) g/dL 10/04/21 Range/Units 05:53 WBC (4.5-11.0) K/mm3 RBC (3.65-5.03) M/mm3 Hgb (11.8-15.2) gm/dl Hct (35.5-45.6) % Plt Count (140-440) K/mm3 PT (12.2-14.9) Sec. INR (0.87-1.13) APTT (24.2-36.6) Sec. BUN 8 L (9-20) mg/dL Creatinine 0.5 L (0.8-1.3) mg/dL Total Protein 5.7 L (6.3-8.2) g/dL Albumin 2.8 L (3.9-5) g/dL Medications & Allergies - Medications Allergies/Adverse Reactions: Allergies procaine [From Novocain] Allergy (Verified 06/23/21 16:08) Blacks out heparin Adverse Reaction (Verified 06/23/21 16:08) BLOOD CLOTS Home Medications: Home Medications Medication Instructions Recorded Confirmed Last Taken Type Aspirin [Adult Aspirin] 81 mg PO DAILY 12/03/20 09/30/21 09/29/21 History 81 mg AtorvaSTATin [Lipitor] 40 mg PO QHS 12/03/20 09/30/21 09/29/21 History 40 mg Isosorbide Dinitrate [Isordil] 10 mg PO BID #60 tablet 12/09/20 09/30/21 09/29/21 Rx 10 mg Apixaban [Eliquis] 5 mg PO BID 02/15/21 09/30/21 09/29/21 History 5 mg Metoprolol [Lopressor TAB] 25 mg PO BID 02/15/21 09/30/21 09/29/21 History 25 mg Venlafaxine [Effexor 37.5mg tab] 37.5 mg PO QDAY 02/15/21 09/30/21 09/29/21 History 37.5mg Clopidogrel [Plavix] 75 mg PO QDAY #90 tablet 02/19/21 09/30/21 09/29/21 Rx 75 mg Ranolazine ER [Ranexa ER] 500 mg PO BID 05/25/21 09/30/21 09/29/21 History 500 mg Vitamin E (Dl,Tocopheryl Acet) 180 mg PO DAILY 06/23/21 09/30/21 09/29/21 History [Vitamin E] 180 mg Active Medications: Generic Name Dose Route Start Last Admin Trade Name Freq PRN Reason Stop Dose Admin Acetaminophen 650 mg 09/30/21 13:14 10/03/21 16:02 Acetaminophen 325 Mg Tab PO 650 mg Q6H PRN Administration Pain, Mild (1-3) Hydrocodone Bitart/Acetaminophen 2 each 09/30/21 13:14 10/04/21 00:58 Hydrocodone/Acetaminophen 5-325 Mg Tab PO 2 each Q6H PRN Administration Pain, Moderate (4-6) Aspirin 81 mg 10/02/21 10:00 10/04/21 09:30 Aspirin Ec 81 Mg Tab PO 81 mg DAILY SUSU Administration Atorvastatin Calcium 40 mg 10/01/21 22:00 10/03/21 22:54 Atorvastatin 40 Mg Tab PO 40 mg QHS SUSU Administration Clopidogrel Bisulfate 75 mg 10/02/21 10:00 10/04/21 09:30 Clopidogrel 75 Mg Tab PO 75 mg QDAY SUSU Administration Folic Acid 1 mg 10/02/21 10:00 10/04/21 09:30 Folic Acid 1 Mg Tab PO 1 mg QDAY SUSU Administration Hydromorphone HCl 0.5 mg 09/30/21 13:14 10/01/21 15:55 Hydromorphone 0.5 Mg/0.5 Ml Inj IV 0.5 mg Q3H PRN Administration Pain , Severe (7-10) Argatroban 250 mg/ Sodium 250 mls @ 4.572 mls/hr 10/01/21 12:00 10/03/21 18:54 Chloride IV 1 mcg/kg/min TITR SUSU 4.572 mls/hr Titration Protocol 1 MCG/KG/MIN Isosorbide Dinitrate 10 mg 10/01/21 22:00 10/03/21 22:53 Isosorbide Dinitrate 10 Mg Tab PO Not Given BID ON LICENSE OF [facility] Metoprolol Tartrate 25 mg 10/01/21 22:00 10/03/21 22:53 Metoprolol Tartrate 25 Mg Tab PO Not Given BID ON LICENSE OF [facility] Morphine Sulfate 2 mg 09/30/21 13:14 10/01/21 03:35 Morphine 2 Mg/1 Ml Inj IV 2 mg Q4H PRN Administration Pain, Moderate (4-6) Ondansetron HCl 4 mg 09/30/21 13:14 Ondansetron 4 Mg/2 Ml Inj IV Q8H PRN Nausea And Vomiting Pantoprazole Sodium 40 mg 10/02/21 07:30 10/03/21 09:28 Pantoprazole 40 Mg Tab PO 40 mg QDAC SUSU Administration Ranolazine 500 mg 10/01/21 22:00 10/04/21 09:30 Ranolazine Er 500 Mg Tab 12hr PO 500 mg BID SUSU Administration Venlafaxine HCl 37.5 mg 10/02/21 10:00 10/04/21 13:22 Venlafaxine 37.5 Mg Tab PO 37.5 mg QDAY ON LICENSE OF [facility] Administration Vitamin E 200 unit 10/01/21 12:00 10/04/21 13:22 Tocopherol 200 Unit Cap PO 200 unit QDAY SUSU Administration Warfarin Sodium 5 mg 10/02/21 17:00 10/03/21 16:02 Warfarin 5 Mg Tab PO 5 mg DAILY@1700 ON LICENSE OF [facility] Administration Protocol
[2021-10-04] MEDS: PANTOPRAZOLE 40 MG TAB PO SCH (15:00)
[2021-10-04] MEDS: METOPROLOL TARTRATE 25 MG TAB PO SCH ×2 (15:00→21:13)
[2021-10-04] MEDS: ISOSORBIDE DINITRATE 10 MG TAB PO SCH ×2 (15:00→21:26)
[2021-10-04 15:15] LABS: Iron 36 ug/dL (49-181); Total Iron Binding Capacity 245 mcg/dL (250-450)
[2021-10-04] MEDS: WARFARIN 5 MG TAB PO SCH (16:15)
[2021-10-05] MEDS: ARGATROBAN 250 MG in SODIUM CHLORIDE 0.9% 250ML 247.5 ML IV SCH (03:20)
[2021-10-05 07:10] LABS: Hemoglobin 11.2 gm/dl (11.8-15.2); Mean Corpuscular HGB Conc 34 % (32-34); Mean Corpuscular Volume 90 fl (84-94); Platelet Count 120 K/mm3 (140-440); Red Blood Count 3.67 M/mm3 (3.65-5.03); Red Cell Distribution Width 14.4 % (13.2-15.2)
[2021-10-05 07:21] LABS: INR 1.54 (0.87-1.13); Partial Thromboplastin Time 43.6 Sec. (24.2-36.6)
[2021-10-05 07:23] LABS: Alanine Aminotransferase 10 units/L (7-56); Albumin 2.9 g/dL (3.9-5); Blood Urea Nitrogen 10 mg/dL (9-20); Calcium 8.4 mg/dL (8.4-10.2); Hemolysis Index 26
[2021-10-05 07:38] LABS: BUN/Creatinine Ratio 17
--- NOTE | 2021-10-05 09:30 | Hem/Onc Progress Note ---
Subjective Date of service: 10/05/21 Interval history: Heme Progress Note Discussed with RN CPT 95240 Dx Arterial Occlusion 66yo male post removal of EKOS thrombolysis catheter Pmhx of HIT, peripheral vascular disease, RLE BKA, SC, and hypercoagulable state Reports complaints of progressively worsening lower extremity numbness and pain starting September 2020 S/p RLE BKA due to arterial occlusion --> reports being told blood was "jello- like" consistency Recent endovascular intervention and oral anticoagulation with Eliquis and Plavix Now LLE, no palpable pedal pulses and cyanotic changes of foot Angiogram demonstrated occlusion of his recently revascularized SFA and popliteal artery S/p EKOS thrombectomy and thrombolysis Left lower extremity is currently well perfused and with no evidence of compartment syndrome Patient was started on Argatroban drip and Coumadin Hematology following for anticoagulant management Reports compliance with Eliquis Outpatient Hematology appt on 11/09/21 CT Chest/Abd/Pelvis negative Iron saturation 14%, started on IV Ferrlicet. 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 cold agglutin? Clotting tendency, hypercoagulable state, pending antiphospholipid testing Recurrent arterial occlusions Thrombocytopenia, likely related to presumed liver dysfunction, HIT Plan: Labs to include LDH, retic, cold agglutin titer, direct [place] Follow pf4 ab, cardiolipin ab Continue Argatroban and Warfarin When INR is above 3, stop Argatroban and start Arixtra 7.5mg daily as a "bridge" Needs Coumadin clinic outpatient follow up plan Must remain in hospital until INR is therapeutic Would benefit from IV iron infusions Recommend outpatient GI follow up for colonoscopy/endoscopy Laboratory Last Values WBC 3.2 K/mm3 (4.5-11.0) L 10/05/21 06:38 Hgb 11.2 gm/dl (11.8-15.2) L 10/05/21 06:38 Hct 33.0 % (35.5-45.6) L 10/05/21 06:38 Plt Count 120 K/mm3 (140-440) L 10/05/21 06:38 INR 1.54 (0.87-1.13) H 10/05/21 06:38 APTT 43.6 Sec. (24.2-36.6) H 10/05/21 06:38 Fibrinogen 236 mg/dl (211-480) 10/01/21 05:55 Heparin Anti-Xa Level 0.30 U.I./ml (0.3-0.7) 10/01/21 05:55 Creatinine 0.6 mg/dL (0.8-1.3) L 10/05/21 06:38 Iron 36 ug/dL (49-181) L 10/04/21 13:17 TIBC 245 mcg/dL (250-450) L 10/04/21 13:17 Ferritin 221.2 ng/mL (30.0-300.0) 10/04/21 13:17 Total Protein 5.7 g/dL (6.3-8.2) L 10/05/21 06:38 Albumin 2.9 g/dL (3.9-5) L 10/05/21 06:38 Albumin/Globulin Ratio 1.0 % 10/05/21 06:38 Objective - Constitutional Vitals: Last Vital Signs Temp 97.3 F L 10/05/21 04:21 Pulse 47 L 10/05/21 04:21 Resp 18 10/05/21 04:21 BP 106/57 10/05/21 04:21 Pulse Ox 98 10/05/21 04:21 - Labs Lab Results: Laboratory Results - last 24 hr 10/04/21 10/04/21 10/04/21 12:12 13:17 13:17 WBC RBC Hgb Hct MCV MCH MCHC RDW Plt Count PT INR APTT Sodium Potassium Chloride Carbon Dioxide Anion Gap BUN Creatinine Estimated GFR BUN/Creatinine Ratio Glucose POC Glucose 99 Calcium Iron 36 L TIBC 245 L Ferritin 221.2 Total Bilirubin AST ALT Alkaline Phosphatase Total Protein Albumin Albumin/Globulin Ratio 10/04/21 10/04/21 10/05/21 16:37 23:29 06:38 WBC 3.2 L RBC 3.67 Hgb 11.2 L Hct 33.0 L MCV 90 MCH 31 MCHC 34 RDW 14.4 Plt Count 120 L PT INR APTT Sodium Potassium Chloride Carbon Dioxide Anion Gap BUN Creatinine Estimated GFR BUN/Creatinine Ratio Glucose POC Glucose 106 H 95 Calcium Iron TIBC Ferritin Total Bilirubin AST ALT Alkaline Phosphatase Total Protein Albumin Albumin/Globulin Ratio 10/05/21 10/05/21 06:38 06:38 WBC RBC Hgb Hct MCV MCH MCHC RDW Plt Count PT 20.4 H INR 1.54 H APTT 43.6 H Sodium 140 Potassium 4.0 Chloride 105.8 Carbon Dioxide 22 Anion Gap 16 BUN 10 Creatinine 0.6 L Estimated GFR > 60 BUN/Creatinine Ratio 17 Glucose 103 H POC Glucose Calcium 8.4 Iron TIBC Ferritin Total Bilirubin < 0.20 AST 17 ALT 10 Alkaline Phosphatase 71 Total Protein 5.7 L Albumin 2.9 L Albumin/Globulin Ratio 1.0 Medications & Allergies - Medications Allergies/Adverse Reactions: Allergies procaine [From Novocain] Allergy (Verified 06/23/21 16:08) Blacks out heparin Adverse Reaction (Verified 06/23/21 16:08) BLOOD CLOTS Home Medications: Home Medications Medication Instructions Recorded Confirmed Last Taken Type Aspirin [Adult Aspirin] 81 mg PO DAILY 12/03/20 09/30/21 09/29/21 History 81 mg AtorvaSTATin [Lipitor] 40 mg PO QHS 12/03/20 09/30/21 09/29/21 History 40 mg Isosorbide Dinitrate [Isordil] 10 mg PO BID #60 tablet 12/09/20 09/30/21 09/29/21 Rx 10 mg Apixaban [Eliquis] 5 mg PO BID 02/15/21 09/30/21 09/29/21 History 5 mg Metoprolol [Lopressor TAB] 25 mg PO BID 02/15/21 09/30/21 09/29/21 History 25 mg Venlafaxine [Effexor 37.5mg tab] 37.5 mg PO QDAY 02/15/21 09/30/21 09/29/21 History 37.5mg Clopidogrel [Plavix] 75 mg PO QDAY #90 tablet 02/19/21 09/30/21 09/29/21 Rx 75 mg Ranolazine ER [Ranexa ER] 500 mg PO BID 05/25/21 09/30/21 09/29/21 History 500 mg Vitamin E (Dl,Tocopheryl Acet) 180 mg PO DAILY 06/23/21 09/30/21 09/29/21 History [Vitamin E] 180 mg Active Medications: Generic Name Dose Route Start Last Admin Trade Name Freq PRN Reason Stop Dose Admin Acetaminophen 650 mg 09/30/21 13:14 10/03/21 16:02 Acetaminophen 325 Mg Tab PO 650 mg Q6H PRN Administration Pain, Mild (1-3) Hydrocodone Bitart/Acetaminophen 2 each 09/30/21 13:14 10/04/21 00:58 Hydrocodone/Acetaminophen 5-325 Mg Tab PO 2 each Q6H PRN Administration Pain, Moderate (4-6) Aspirin 81 mg 10/02/21 10:00 10/04/21 09:30 Aspirin Ec 81 Mg Tab PO 81 mg DAILY [facility] Administration Atorvastatin Calcium 40 mg 10/01/21 22:00 10/04/21 21:26 Atorvastatin 40 Mg Tab PO 40 mg QHS SUSU Administration Clopidogrel Bisulfate 75 mg 10/02/21 10:00 10/04/21 09:30 Clopidogrel 75 Mg Tab PO 75 mg QDAY [facility] Administration Folic Acid 1 mg 10/02/21 10:00 10/04/21 09:30 Folic Acid 1 Mg Tab PO 1 mg QDAY [facility] Administration Hydromorphone HCl 0.5 mg 09/30/21 13:14 10/01/21 15:55 Hydromorphone 0.5 Mg/0.5 Ml Inj IV 0.5 mg Q3H PRN Administration Pain , Severe (7-10) Argatroban 250 mg/ Sodium 250 mls @ 4.572 mls/hr 10/01/21 12:00 10/05/21 07:00 Chloride IV 1 mcg/kg/min TITR SUSU 4.572 mls/hr Titration Protocol 1 MCG/KG/MIN Ferric Sodium Gluconate 110 mls @ 100 mls/hr 10/05/21 10:00 Complex 125 mg/ Sodium IV 10/07/21 11:05 Chloride ONCE SUSU Isosorbide Dinitrate 10 mg 10/01/21 22:00 10/04/21 21:26 Isosorbide Dinitrate 10 Mg Tab PO 10 mg BID [facility] Administration Metoprolol Tartrate 25 mg 10/01/21 22:00 10/04/21 21:13 Metoprolol Tartrate 25 Mg Tab PO Not Given BID [facility] Morphine Sulfate 2 mg 09/30/21 13:14 10/01/21 03:35 Morphine 2 Mg/1 Ml Inj IV 2 mg Q4H PRN Administration Pain, Moderate (4-6) Ondansetron HCl 4 mg 09/30/21 13:14 Ondansetron 4 Mg/2 Ml Inj IV Q8H PRN Nausea And Vomiting Pantoprazole Sodium 40 mg 10/02/21 07:30 10/04/21 15:00 Pantoprazole 40 Mg Tab PO Not Given QDAC [facility] Ranolazine 500 mg 10/01/21 22:00 10/04/21 21:26 Ranolazine Er 500 Mg Tab 12hr PO 500 mg BID SUSU Administration Venlafaxine HCl 37.5 mg 10/02/21 10:00 10/04/21 13:22 Venlafaxine 37.5 Mg Tab PO 37.5 mg QDAY [facility] Administration Vitamin E 200 unit 10/01/21 12:00 10/04/21 13:22 Tocopherol 200 Unit Cap PO 200 unit QDAY [facility] Administration Warfarin Sodium 7.5 mg 10/05/21 17:00 Warfarin 7.5 Mg Tab PO DAILY@1700 [facility] Protocol
[2021-10-05] MEDS ORDERED: SODIUM FERRIC GLUCON/SUCRO 125 MG in SODIUM CHLORIDE 0.9% 100 ML IV SCH ×2 (10:00→11:00)
--- NOTE | 2021-10-05 10:14 | Cat Scan Report ---
CT abdomen pelvis wo/w con, CT chest wo/w con INDICATION / CLINICAL INFORMATION: Evaluate for malignancy TECHNIQUE: Axial CT images were obtained through the chest, abdomen and pelvis. All CT scans at this location ar e performed using CT dose reduction for ALARA by means of automated exposure control. COMPARISON: None available. FINDINGS: CHEST: Lungs: Mild bilateral basilar reticulation. No pleural effusion. No pneumothorax. No suspicious pulm onary nodule. Heart: Prior post operative changes from CABG with multivessel [place] coronary atherosclerosis Mediastinum: No significant abnormality. Aorta: Atherosclerosis. No aneurysm. ADDITIONAL FINDINGS: None. ABDOMEN and PELVIS: Liver: No significant abnormality. Biliary: No significant abnormality. Spleen: No significant abnormality. Unenlarged. Pancreas: No significant abnormality. Adrenals: No significant abnormality. Kidneys: No significant abnormality. Lymphatics: No lymphadenopathy. Vasculature: No significant abnormality. Bowel: Nonobstructive bowel pattern. Diverticulosis without mesocolonic fat stranding. No free air. N o free fluid. Normal appendix. Pelvis: No significant abnormality. Osseous Structures: No aggressive osseous lesion. Additional Findings: None IMPRESSION: 1. No evidence for neoplasm in the chest, abdomen, or pelvis. Signer Name: Cassius Vasquez MD Signed: 10/05/2021 10:10 AM Workstation Name: [id number]
--- NOTE | 2021-10-05 10:14 | Cat Scan Report ---
CT abdomen pelvis wo/w con, CT chest wo/w con INDICATION / CLINICAL INFORMATION: Evaluate for malignancy TECHNIQUE: Axial CT images were obtained through the chest, abdomen and pelvis. All CT scans at this location ar e performed using CT dose reduction for ALARA by means of automated exposure control. COMPARISON: None available. FINDINGS: CHEST: Lungs: Mild bilateral basilar reticulation. No pleural effusion. No pneumothorax. No suspicious pulm onary nodule. Heart: Prior post operative changes from CABG with multivessel [place] coronary atherosclerosis Mediastinum: No significant abnormality. Aorta: Atherosclerosis. No aneurysm. ADDITIONAL FINDINGS: None. ABDOMEN and PELVIS: Liver: No significant abnormality. Biliary: No significant abnormality. Spleen: No significant abnormality. Unenlarged. Pancreas: No significant abnormality. Adrenals: No significant abnormality. Kidneys: No significant abnormality. Lymphatics: No lymphadenopathy. Vasculature: No significant abnormality. Bowel: Nonobstructive bowel pattern. Diverticulosis without mesocolonic fat stranding. No free air. N o free fluid. Normal appendix. Pelvis: No significant abnormality. Osseous Structures: No aggressive osseous lesion. Additional Findings: None IMPRESSION: 1. No evidence for neoplasm in the chest, abdomen, or pelvis. Signer Name: Cassius Vasquez MD Signed: 10/05/2021 10:10 AM Workstation Name: [id number]
[2021-10-05] MEDS: ISOSORBIDE DINITRATE 10 MG TAB PO SCH ×3 (11:48→22:25)
[2021-10-05] MEDS: TOCOPHEROL 200 UNIT CAP PO SCH (11:48)
[2021-10-05] MEDS: PANTOPRAZOLE 40 MG TAB PO SCH (11:49)
[2021-10-05] MEDS: VENLAFAXINE 37.5 MG TAB PO SCH (11:49)
[2021-10-05] MEDS: CLOPIDOGREL 75 MG TAB PO SCH (11:49)
[2021-10-05] MEDS: ASPIRIN EC 81 MG TAB PO SCH (11:49)
[2021-10-05] MEDS: FOLIC ACID 1 MG TAB PO SCH (11:50)
[2021-10-05] MEDS: METOPROLOL TARTRATE 25 MG TAB PO SCH ×2 (11:50→22:17)
[2021-10-05] MEDS: RANOLAZINE ER 500 MG TAB 12HR PO SCH ×2 (11:50→22:22)
[2021-10-05] MEDS ORDERED: methylPREDNISolone Sod Succinate 40 MG/1 ML INJ IV SCH (14:30)
--- NOTE | 2021-10-05 16:43 | Consultation ---
History of Present Illness - Reason for Consult Consult date: 10/05/21 Allergic Reactioin Requesting physician: SHARONA OMALLEY - History of Present Illness 66 YO Male with HIT, PVD, Hyporcoagulable State S/P removal of EKOS thrombolysis catheter. Consult placed by Dr. Omalley for allergic reaction. Patient seen and evaluated in his room. Patient resting comfortably. Patient seen, chills, chest pain, palpitation, productive cough, skin rash, recent contact, known ex posure to COVID-19. Patient states that she within 30 minutes after initiation of transfusion of IV iron he experienced "a tingling sensation in his arm" as well as shortness of breath and "feeling weird". Iron transfusion was discontinued with improvement in symptoms. Past History Past Medical History: hypertension, hyperlipidemia, PVD Past Surgical History: Other (Cardiac stent placement) Social history: , lives with family Family history: hypertension Medications and Allergies Allergies Allergy/AdvReac Type Severity Reaction Status Date / Time procaine [From Novocain] Allergy Blacks out Verified 06/23/21 16:08 heparin AdvReac BLOOD CLOTS Verified 06/23/21 16:08 Home Medications Medication Instructions Recorded Confirmed Last Taken Type Aspirin [Adult Aspirin] 81 mg PO DAILY 12/03/20 09/30/21 09/29/21 History 81 mg AtorvaSTATin [Lipitor] 40 mg PO QHS 12/03/20 09/30/21 09/29/21 History 40 mg Isosorbide Dinitrate [Isordil] 10 mg PO BID #60 tablet 12/09/20 09/30/21 09/29/21 Rx 10 mg Apixaban [Eliquis] 5 mg PO BID 02/15/21 09/30/21 09/29/21 History 5 mg Metoprolol [Lopressor TAB] 25 mg PO BID 02/15/21 09/30/21 09/29/21 History 25 mg Venlafaxine [Effexor 37.5mg tab] 37.5 mg PO QDAY 02/15/21 09/30/21 09/29/21 History 37.5mg Clopidogrel [Plavix] 75 mg PO QDAY #90 tablet 02/19/21 09/30/21 09/29/21 Rx 75 mg Ranolazine ER [Ranexa ER] 500 mg PO BID 05/25/21 09/30/2122 History 500 mg Vitamin E (Dl,Tocopheryl Acet) 180 mg PO DAILY 06/23/21 09/30/21 09/29/21 History [Vitamin E] 180 mg Active Meds: Active Medications Acetaminophen (Acetaminophen 325 Mg Tab) 650 mg PO Q6H PRN PRN Reason: Pain, Mild (1-3) Last Admin: 10/03/21 16:02 Dose: 650 mg Hydrocodone Bitart/Acetaminophen (Hydrocodone/Acetaminophen 5-325 Mg Tab) 2 each PO Q6H PRN PRN Reason: Pain, Moderate (4-6) Last Admin: 10/04/21 00:58 Dose: 2 each Aspirin (Aspirin Ec 81 Mg Tab) 81 mg PO DAILY [facility] Last Admin: 10/05/21 11:49 Dose: 81 mg Atorvastatin Calcium (Atorvastatin 40 Mg Tab) 40 mg PO QHS [facility] Last Admin: 10/04/21 21:26 Dose: 40 mg Clopidogrel Bisulfate (Clopidogrel 75 Mg Tab) 75 mg PO QDAY [facility] Last Admin: 10/05/21 11:49 Dose: 75 mg Folic Acid (Folic Acid 1 Mg Tab) 1 mg PO QDAY [facility] Last Admin: 10/05/21 11:50 Dose: 1 mg Hydromorphone HCl (Hydromorphone 0.5 Mg/0.5 Ml Inj) 0.5 mg IV Q3H PRN PRN Reason: Pain , Severe (7-10) Last Admin: 10/01/21 15:55 Dose: 0.5 mg Argatroban 250 mg/ Sodium (Chloride) 250 mls @ 4.572 mls/hr IV TITR [facility]; Protocol Last Titration: 10/05/21 07:00 Dose: 1 mcg/kg/min, 4.572 mls/hr Isosorbide Dinitrate (Isosorbide Dinitrate 10 Mg Tab) 10 mg PO BID [facility] Last Admin: 10/05/21 11:48 Dose: 10 mg Methylprednisolone Sodium Succinate (Methylprednisolone Sod Succinate 40 Mg/1 Ml Inj) 40 mg IV ONCE@1430 [facility] Stop: 10/05/21 18:00 Metoprolol Tartrate (Metoprolol Tartrate 25 Mg Tab) 25 mg PO BID [facility] Last Admin: 10/05/21 11:50 Dose: Not Given Morphine Sulfate (Morphine 2 Mg/1 Ml Inj) 2 mg IV Q4H PRN PRN Reason: Pain, Moderate (4-6) Last Admin: 10/01/21 03:35 Dose: 2 mg Ondansetron HCl (Ondansetron 4 Mg/2 Ml Inj) 4 mg IV Q8H PRN PRN Reason: Nausea And Vomiting Pantoprazole Sodium (Pantoprazole 40 Mg Tab) 40 mg PO QDAC [facility] Last Admin: 10/05/21 11:49 Dose: 40 mg Ranolazine (Ranolazine Er 500 Mg Tab 12hr) 500 mg PO BID [facility] Last Admin: 10/04/21 21:26 Dose: 500 mg Venlafaxine HCl (Venlafaxine 37.5 Mg Tab) 37.5 mg PO QDAY [facility] Last Admin: 10/05/21 11:49 Dose: 37.5 mg Vitamin E (Tocopherol 200 Unit Cap) 200 unit PO QDAY [facility] Last Admin: 10/05/21 11:48 Dose: 200 unit Warfarin Sodium (Warfarin 7.5 Mg Tab) 7.5 mg PO DAILY@1700 [facility]; Protocol Review of Systems Constitutional: no weight loss, no weight gain, no fever, no chills Ears, nose, mouth and throat: no ear pain, no ear discharge, no nasal discharge Cardiovascular: shortness of breath, no chest pain, no orthopnea, no rapid/irregular heart beat Respiratory: shortness of breath, no cough, no cough with sputum, no excessive sputum, no hemoptysis Gastrointestinal: no abdominal pain, no nausea, no diarrhea, no constipation Genitourinary Male: no hematuria, no flank pain, no urinary frequency Rectal: no pain, no incontinence, no bleeding Musculoskeletal: no neck pain, no shooting arm pain, no arm numbness/tingling, no shooting leg pain, no leg numbness/tingling Integumentary: no rash, no pruritis, no redness, no sores, no wounds Neurological: no head injury, no paralysis, no weakness, no numbness, no seizures, no syncope Psychiatric: no anxiety, no change in sleep habits, no sleep disturbances, no insomnia, no hypersomnia, no change in libido, no suicidal ideation Endocrine: no cold intolerance, no polyphagia, no excessive thirst, no polydipsia, no polyuria, no excessive sweating Hematologic/Lymphatic: no easy bruising, no easy bleeding, no lymphedema Allergic/Immunologic: no urticaria, no allergic rhinitis, no anaphylaxis Exam - Constitutional Vitals: Temp Pulse Resp BP Pulse Ox 98.6 F 65 16 117/71 96 10/05/21 15:39 10/05/21 15:39 10/05/21 15:39 10/05/21 15:39 10/05/21 15:39 General appearance: Present: no acute distress - EENT Eyes: Present: PERRL ENT: hearing intact, clear oral mucosa - Neck Neck: Present: supple, normal ROM - Respiratory Respiratory effort: normal Respiratory: bilateral: CTA - Cardiovascular Heart Sounds: Present: S1 & S2. Absent: rub, click - Extremities Extremities: pulses symmetrical, No edema Peripheral Pulses: within normal limits - Abdominal General gastrointestinal: Present: soft, non-tender, non-distended, normal bowel sounds Male genitourinary: Present: normal - Integumentary Integumentary: Present: clear, warm, dry - Musculoskeletal Musculoskeletal: gait normal, strength equal bilaterally - Psychiatric Psychiatric: appropriate mood/affect, intact judgment & insight - Neurologic Neurologic: CNII-XII intact, moves all extremities Results - Labs CBC & Chem 7: 10/05/21 06:38 10/05/21 06:38 Labs: Abnormal lab results 10/05/21 10/05/21 10/05/21 Range/Units 06:38 06:38 06:38 WBC 3.2 L (4.5-11.0) K/mm3 Hgb 11.2 L (11.8-15.2) gm/dl Hct 33.0 L (35.5-45.6) % Plt Count 120 L (140-440) K/mm3 PT 20.4 H (12.2-14.9) Sec. INR 1.54 H (0.87-1.13) APTT 43.6 H (24.2-36.6) Sec. Creatinine 0.6 L (0.8-1.3) mg/dL Glucose 103 H (75-100) mg/dL POC Glucose (70-105) mg/dL Lactate Dehydrogenase (91-180) units/L Total Protein 5.7 L (6.3-8.2) g/dL Albumin 2.9 L (3.9-5) g/dL 10/05/21 10/05/21 Range/Units 11:19 14:32 WBC (4.5-11.0) K/mm3 Hgb (11.8-15.2) gm/dl Hct (35.5-45.6) % Plt Count (140-440) K/mm3 PT (12.2-14.9) Sec. INR (0.87-1.13) APTT (24.2-36.6) Sec. Creatinine (0.8-1.3) mg/dL Glucose (75-100) mg/dL POC Glucose 114 H (70-105) mg/dL Lactate Dehydrogenase 197 H (91-180) units/L Total Protein (6.3-8.2) g/dL Albumin (3.9-5) g/dL Assessment and Plan - Patient Problems (1) Anaphylaxis Current Visit: Yes Status: Acute Qualifiers: Encounter type: initial encounter Qualified Code(s): T78.2XXA - Anaphylactic shock, unspecified, initial encounter Plan to address problem: IV steroid therapy, supportive care, discontinuation of iron therapy. Continue to monitor. (2) Peripheral vascular disease Current Visit: Yes Status: Acute Plan to address problem: Continue medical management.
[2021-10-05] MEDS: WARFARIN 7.5 MG TAB PO SCH (18:34)
[2021-10-06 05:50] LABS: Hematocrit 35.3 % (35.5-45.6); Hemoglobin 11.7 gm/dl (11.8-15.2); Mean Corpuscular HGB Conc 33 % (32-34); Mean Corpuscular Volume 91 fl (84-94); Platelet Count 153 K/mm3 (140-440); Red Blood Count 3.89 M/mm3 (3.65-5.03); Red Cell Distribution Width 14.2 % (13.2-15.2)
[2021-10-06 06:02] LABS: INR 2.9 (0.87-1.13)
[2021-10-06 06:09] LABS: Alanine Aminotransferase 13 units/L (7-56); Albumin 3.1 g/dL (3.9-5); Blood Urea Nitrogen 8 mg/dL (9-20); Calcium 8.8 mg/dL (8.4-10.2); Hemolysis Index 2
[2021-10-06 06:10] LABS: BUN/Creatinine Ratio 13
[2021-10-06] MEDS: FONDAPARINUX 7.5 MG/0.6 ML INJ SUB-Q SCH (11:00)
[2021-10-06] MEDS: METOPROLOL TARTRATE 25 MG TAB PO SCH ×2 (11:01→21:12)
[2021-10-06] MEDS: FOLIC ACID 1 MG TAB PO SCH (11:02)
[2021-10-06] MEDS: ISOSORBIDE DINITRATE 10 MG TAB PO SCH ×2 (11:02→21:13)
[2021-10-06] MEDS: CLOPIDOGREL 75 MG TAB PO SCH (11:03)
[2021-10-06] MEDS: RANOLAZINE ER 500 MG TAB 12HR PO SCH ×2 (11:03→21:36)
[2021-10-06] MEDS: ASPIRIN EC 81 MG TAB PO SCH (11:03)
[2021-10-06] MEDS: VENLAFAXINE 37.5 MG TAB PO SCH (11:03)
[2021-10-06] MEDS: TOCOPHEROL 200 UNIT CAP PO SCH (11:03)
--- NOTE | 2021-10-06 12:17 | Progress Note ---
Assessment and Plan Assessment and plan: #Anaphylaxis #Drug reaction to IV iron-resolved #Iron deficiency anemia -patient has iron deficiency anemia and given reaction during IV administration, PO iron is suggested -can continue ferrous sulfate 325 qday outpatient -supportive care #Peripheral vascular disease -management per primary team Thank you for this consult. Please feel free to call with any questions or concerns. History Interval history: No acute events overnight. Patient reports resolution of symptoms that occurred during iron infusion. We discussed oral iron supplementation. He currently denies lightheadedness, dizziness, chest pain and/or shortness of breath. Hospitalist Physical - Physical exam Narrative exam: GENERAL: Well-developed well-nourished. In no acute distress. HEENT: Normocephalic. Atraumatic. NECK: Supple. CHEST/LUNGS: CTAB on room air HEART/CARDIOVASCULAR: RRR. No murmur, rubs or gallops appreciated. ABDOMEN: +BS. NT/ND. SKIN: No rashes noted. NEURO: No focal motor deficit. Follows all commands. MUSCULOSKELETAL: No joint effusion EXTREMITIES: RLE BKA stump dressed. LLE w/o swelling, cyanosis. PSYCH: Cooperative. - Constitutional Vitals: Temp Pulse Resp BP Pulse Ox 98.0 F 56 L 18 121/67 97 10/06/21 11:08 10/06/21 11:08 10/06/21 11:08 10/06/21 11:08 10/06/21 11:08 General appearance: Present: no acute distress Results - Labs CBC & Chem 7: 10/06/21 05:24 10/06/21 05:24 Labs: Laboratory Last Values WBC 4.3 K/mm3 (4.5-11.0) L 10/06/21 05:24 RBC 3.89 M/mm3 (3.65-5.03) 10/06/21 05:24 Hgb 11.7 gm/dl (11.8-15.2) L 10/06/21 05:24 Hct 35.3 % (35.5-45.6) L 10/06/21 05:24 MCV 91 fl (84-94) 10/06/21 05:24 MCH 30 pg (28-32) 10/06/21 05:24 MCHC 33 % (32-34) 10/06/21 05:24 RDW 14.2 % (13.2-15.2) 10/06/21 05:24 Plt Count 153 K/mm3 (140-440) 10/06/21 05:24 Lymph % (Auto) 28.9 % (13.4-35.0) 10/01/21 05:55 Graves % (Auto) 8.8 % (0.0-7.3) H 10/01/21 05:55 Eos % (Auto) 2.7 % (0.0-4.3) 10/01/21 05:55 Baso % (Auto) 0.4 % (0.0-1.8) 10/01/21 05:55 Lymph # (Auto) 2.0 K/mm3 (1.2-5.4) 10/01/21 05:55 Graves # (Auto) 0.6 K/mm3 (0.0-0.8) 10/01/21 05:55 Eos # (Auto) 0.2 K/mm3 (0.0-0.4) 10/01/21 05:55 Baso # (Auto) 0.0 K/mm3 (0.0-0.1) 10/01/21 05:55 Seg Neutrophils % 59.2 % (40.0-70.0) 10/01/21 05:55 Seg Neutrophils # 4.2 K/mm3 (1.8-7.7) 10/01/21 05:55 Percent Retic 1.28 % (0.78-2.58) 10/05/21 14:32 PT 34.2 Sec. (12.2-14.9) H 10/06/21 05:24 INR 2.90 (0.87-1.13) H 10/06/21 05:24 APTT 51.4 Sec. (24.2-36.6) H 10/05/21 19:21 Fibrinogen 236 mg/dl (211-480) 10/01/21 05:55 Heparin Anti-Xa Level 0.30 U.I./ml (0.3-0.7) 10/01/21 05:55 Sodium 139 mmol/L (137-145) 10/06/21 05:24 Potassium 4.3 mmol/L (3.6-5.0) 10/06/21 05:24 Chloride 105.3 mmol/L (98-107) 10/06/21 05:24 Carbon Dioxide 26 mmol/L (22-30) 10/06/21 05:24 Anion Gap 12 mmol/L 10/06/21 05:24 BUN 8 mg/dL (9-20) L 10/06/21 05:24 Creatinine 0.6 mg/dL (0.8-1.3) L 10/06/21 05:24 Estimated GFR > 60 ml/min 10/06/21 05:24 BUN/Creatinine Ratio 13 % 10/06/21 05:24 Glucose 106 mg/dL (75-100) H 10/06/21 05:24 POC Glucose 106 mg/dL (70-105) H 10/06/21 05:34 Calcium 8.8 mg/dL (8.4-10.2) 10/06/21 05:24 Iron 36 ug/dL (49-181) L 10/04/21 13:17 TIBC 245 mcg/dL (250-450) L 10/04/21 13:17 Ferritin 221.2 ng/mL (30.0-300.0) 10/04/21 13:17 Total Bilirubin < 0.20 mg/dL (0.1-1.2) 10/06/21 05:24 AST 17 units/L (5-40) 10/06/21 05:24 ALT 13 units/L (7-56) 10/06/21 05:24 Alkaline Phosphatase 77 units/L (35-129) 10/06/21 05:24 Lactate Dehydrogenase 197 units/L (91-180) H 10/05/21 14:32 Total Protein 6.0 g/dL (6.3-8.2) L 10/06/21 05:24 Albumin 3.1 g/dL (3.9-5) L 10/06/21 05:24 Albumin/Globulin Ratio 1.1 % 10/06/21 05:24 Direct Antiglob Test Negative 10/05/21 Unknown BETO, Poly Interpret Negative 10/05/21 Unknown Barajas/IV: Voiding Method Urinal Active Medications - Current Medications Current Medications: Generic Name Dose Route Start Last Admin Trade Name Freq PRN Reason Stop Dose Admin Acetaminophen 650 mg 09/30/21 13:14 10/03/21 16:02 Acetaminophen 325 Mg Tab PO 650 mg Q6H PRN Administration Pain, Mild (1-3) Hydrocodone Bitart/Acetaminophen 2 each 09/30/21 13:14 10/04/21 00:58 Hydrocodone/Acetaminophen 5-325 Mg Tab PO 2 each Q6H PRN Administration Pain, Moderate (4-6) Aspirin 81 mg 10/02/21 10:00 10/06/21 11:03 Aspirin Ec 81 Mg Tab PO 81 mg DAILY [facility] Administration Atorvastatin Calcium 40 mg 10/01/21 22:00 10/05/21 22:22 Atorvastatin 40 Mg Tab PO 40 mg QHS [facility] Administration Clopidogrel Bisulfate 75 mg 10/02/21 10:00 10/06/21 11:03 Clopidogrel 75 Mg Tab PO 75 mg QDAY [facility] Administration Folic Acid 1 mg 10/02/21 10:00 10/06/21 11:02 Folic Acid 1 Mg Tab PO 1 mg QDAY [facility] Administration Fondaparinux 7.5 mg 10/06/21 11:00 10/06/21 11:00 Fondaparinux 7.5 Mg/0.6 Ml Inj SUB-Q 7.5 mg QDAY [facility] Administration Hydromorphone HCl 0.5 mg 09/30/21 13:14 10/01/21 15:55 Hydromorphone 0.5 Mg/0.5 Ml Inj IV 0.5 mg Q3H PRN Administration Pain , Severe (7-10) Isosorbide Dinitrate 10 mg 10/01/21 22:00 10/06/21 11:02 Isosorbide Dinitrate 10 Mg Tab PO 10 mg BID [facility] Administration Metoprolol Tartrate 25 mg 10/01/21 22:00 10/06/21 11:01 Metoprolol Tartrate 25 Mg Tab PO Not Given BID [facility] Morphine Sulfate 2 mg 09/30/21 13:14 10/01/21 03:35 Morphine 2 Mg/1 Ml Inj IV 2 mg Q4H PRN Administration Pain, Moderate (4-6) Ondansetron HCl 4 mg 09/30/21 13:14 Ondansetron 4 Mg/2 Ml Inj IV Q8H PRN Nausea And Vomiting Pantoprazole Sodium 40 mg 10/02/21 07:30 10/05/21 11:49 Pantoprazole 40 Mg Tab PO 40 mg QDAC [facility] Administration Ranolazine 500 mg 10/01/21 22:00 10/06/21 11:03 Ranolazine Er 500 Mg Tab 12hr PO 500 mg BID [facility] Administration Venlafaxine HCl 37.5 mg 10/02/21 10:00 10/06/21 11:03 Venlafaxine 37.5 Mg Tab PO 37.5 mg QDAY [facility] Administration Vitamin E 200 unit 10/01/21 12:00 10/06/21 11:03 Tocopherol 200 Unit Cap PO 200 unit QDAY [facility] Administration Warfarin Sodium 7.5 mg 10/05/21 17:00 10/05/21 18:34 Warfarin 7.5 Mg Tab PO 7.5 mg DAILY@1700 [facility] Administration Protocol Nutrition/Malnutrition Assess - Dietary Evaluation Nutrition/Malnutrition Findings: Nutrition Notes Start: 10/04/21 13:49 Freq: Status: Active Protocol: Document 10/04/21 13:49 ALAN (Rec: 10/04/21 14:38 ALAN [id number]) Nutrition Notes Initial or Follow up Assessment Current Diagnosis Hypertension,Hyperlipidemia Other Pertinent Diagnosis PVD s/p EKOS Therapy, s/p Revascularization of L-LE. Current Diet Cardiac Diet (since D 10/01). Labs/Tests 10/04: BUN 8, Crea 0.5. Pertinent Medications 10/04: Folic acid, Vit E, Coumadin, others nutritionally unremarkable. Height 6 ft Weight 76.2 kg [place] Body Weight (kg) 80.90 BMI 22.8 Intake Prior to Admission Good Weight change and time frame Pt denies having loss body weight [employer]. Weight Status Appropriate Subjective/Other Information RD consult for warfarine use assessment. No reports available on Pt's PO intake of meals at the time , will assess at F/U. Pt is on Room Air, O2 saturation @ 97%, according to Physical Assessment Histoery notes. Pt has missing teeth and caries, according to Physical Assessment History notes. Procedure on 09/30: L-LE Thrombectomy and EKOS Thrombolysis Cathter placment. , well tolerated, according to Operative Report notes. Procedure on 10/01: L-LE removal of the EKOS Thrombolysis Catheter, Angioplasty of the L-TA, Angioplasty and stent placement of L-TPT, Angioplasty ot L-GLENROY, and Closure of R-F Arteriotomy, well tolerated, according to Operative Report notes. Pt is a new warfarinw user, nutrition education will be provided at F/U. Pt presents a surgical wound on the R-Groin area, according to Physical Assessment History notes. Percent of energy/protein needs met: Prescribed Cardiac Diet provides for energy/protein needs (2,230 Kcal/85 g) during LOS. Burn Absent Trauma Absent GI Symptoms None Food Allergy No Skin Integrity/Comment Surgical wound on the R-Groin area. Minimum of two criteria No Fluid Accumulation N/A [employer] Management Strength N/A (non-severe) Protein-Calorie Malnutrition N\A #1 Nutrition Diagnosis Food and nutrition-related knowledge deficit Etiology PVD As Evidenced by Signs and Symptoms Pt is new to warfarine use. Is patient on ventilator? No Is Patient Ambulatory and/or Out of Bed No REE-([place]-[facility] [facility]-confined to bed) 1889.616 Kcal/Kg value to use for calculation 30 Approximate Energy Requirements Using 2286 kcal/Kg Calculation Used for Recommendations Kcal/kg Additional Notes Protein: 1-1.2 g/Kg ABW; 76-91 g/day. Fluids: 1 ml/Kcal, or as per MD. Nutrition Intervention Change Diet Order: Continue Cardiac Diet. Education Handouts Provided AND: Vitamin K And Medications , Cardiac-TLC Nutrition Therapy, and MyPlate For Meal Planning. Goal #1 During LOS, provide Pt with nutrition education to foster behavioral changes towards a healthy lifestyle. Follow-Up By: 10/11/21 Additional Comments Nutrition education will be provided at F/U, if feasible. Continue monitoring food tolerance, %PO intake of meals , and BM.
--- NOTE | 2021-10-06 16:03 | Progress Note ---
Assessment and Plan Patient is doing well Argatroban gtt has been stopped and he has been started on Arixtra secondary to secondary to INR of 2.9. If INR remains therapeutic can be discharged home. Subjective Date of service: 10/06/21 Principal diagnosis: Acute arterial occlusion left leg Interval history: Patient is without complaints. Objective - Constitutional Vitals: Vital Signs - 12hr 10/06/21 10/06/21 10/06/21 07:55 11:01 11:02 Temperature 98.2 F Pulse Rate 48 L 56 L 56 L Respiratory 18 Rate Blood Pressure 117/70 O2 Sat by Pulse 98 Oximetry 10/06/21 10/06/21 11:08 15:38 Temperature 98.0 F 98.4 F Pulse Rate 56 L 57 L Respiratory 18 18 Rate Blood Pressure 121/67 134/74 O2 Sat by Pulse 97 95 Oximetry General appearance: Present: no acute distress - Respiratory Respiratory effort: normal - Cardiovascular Rhythm: regular Extremities: pulses intact (palpable Left PT/DP) - Gastrointestinal General gastrointestinal: Present: soft, non-tender, non-distended - Labs CBC & Chem 7: 10/06/21 05:24 10/06/21 05:24 Labs: Abnormal lab results 10/05/21 10/05/21 10/06/21 Range/Units 17:08 19:21 01:12 WBC (4.5-11.0) K/mm3 Hgb (11.8-15.2) gm/dl Hct (35.5-45.6) % PT (12.2-14.9) Sec. INR (0.87-1.13) APTT 51.4 H (24.2-36.6) Sec. BUN (9-20) mg/dL Creatinine (0.8-1.3) mg/dL Glucose (75-100) mg/dL POC Glucose 152 H 145 H (70-105) mg/dL Total Protein (6.3-8.2) g/dL Albumin (3.9-5) g/dL 10/06/21 10/06/21 10/06/21 Range/Units 05:24 05:24 05:24 WBC 4.3 L (4.5-11.0) K/mm3 Hgb 11.7 L (11.8-15.2) gm/dl Hct 35.3 L (35.5-45.6) % PT 34.2 H (12.2-14.9) Sec. INR 2.90 H (0.87-1.13) APTT (24.2-36.6) Sec. BUN 8 L (9-20) mg/dL Creatinine 0.6 L (0.8-1.3) mg/dL Glucose 106 H (75-100) mg/dL POC Glucose (70-105) mg/dL Total Protein 6.0 L (6.3-8.2) g/dL Albumin 3.1 L (3.9-5) g/dL 10/06/21 Range/Units 05:34 WBC (4.5-11.0) K/mm3 Hgb (11.8-15.2) gm/dl Hct (35.5-45.6) % PT (12.2-14.9) Sec. INR (0.87-1.13) APTT (24.2-36.6) Sec. BUN (9-20) mg/dL Creatinine (0.8-1.3) mg/dL Glucose (75-100) mg/dL POC Glucose 106 H (70-105) mg/dL Total Protein (6.3-8.2) g/dL Albumin (3.9-5) g/dL Medications & Allergies - Medications Allergies/Adverse Reactions: Allergies procaine [From Novocain] Allergy (Verified 10/06/21 07:42) Blacks out heparin Adverse Reaction (Verified 10/06/21 07:42) BLOOD CLOTS Home Medications: Home Medications Medication Instructions Recorded Confirmed Last Taken Type Aspirin [Adult Aspirin] 81 mg PO DAILY 12/03/20 10/06/21 09/23/21 History 1 tab AtorvaSTATin [Lipitor] 40 mg PO QHS 12/03/20 10/06/21 09/23/21 History 1 tab Isosorbide Dinitrate [Isordil] 10 mg PO BID #60 tablet 12/09/20 10/06/21 09/23/21 Rx 2 tab Apixaban [Eliquis] 5 mg PO BID 02/15/21 10/06/21 09/23/21 History 1 tab Metoprolol [Lopressor TAB] 25 mg PO BID 02/15/21 10/06/21 09/23/21 History 2 tabs Venlafaxine [Effexor 37.5mg tab] 37.5 mg PO QDAY 02/15/21 10/06/21 09/23/21 History 1 tab Clopidogrel [Plavix] 75 mg PO QDAY #90 tablet 02/19/21 10/06/21 09/23/21 Rx 1 tab Ranolazine ER [Ranexa ER] 500 mg PO BID 05/25/21 10/06/21 09/23/21 History 2 tab Vitamin E (Dl,Tocopheryl Acet) 180 mg PO DAILY 06/23/21 10/06/21 09/23/21 History [Vitamin E] 1 tab Ferrous Sulfate [Feosol 325 MG tab] 325 mg PO QDAY 90 Days #90 tablet 10/06/21 Unknown Rx Active Medications: Generic Name Dose Route Start Last Admin Trade Name Freq PRN Reason Stop Dose Admin Acetaminophen 650 mg 09/30/21 13:14 10/03/21 16:02 Acetaminophen 325 Mg Tab PO 650 mg Q6H PRN Administration Pain, Mild (1-3) Hydrocodone Bitart/Acetaminophen 2 each 09/30/21 13:14 10/04/21 00:58 Hydrocodone/Acetaminophen 5-325 Mg Tab PO 2 each Q6H PRN Administration Pain, Moderate (4-6) Ascorbic Acid 500 mg 10/07/21 10:00 Ascorbic Acid 500 Mg Tab PO QDAY [facility] Aspirin 81 mg 10/02/21 10:00 10/06/21 11:03 Aspirin Ec 81 Mg Tab PO 81 mg DAILY [facility] Administration Atorvastatin Calcium 40 mg 10/01/21 22:00 10/05/21 22:22 Atorvastatin 40 Mg Tab PO 40 mg QHS [facility] Administration Clopidogrel Bisulfate 75 mg 10/02/21 10:00 10/06/21 11:03 Clopidogrel 75 Mg Tab PO 75 mg QDAY [facility] Administration Ferrous Sulfate 325 mg 10/06/21 15:00 Ferrous Sulfate 325 Mg Tab PO QDAY [facility] Folic Acid 1 mg 10/02/21 10:00 10/06/21 11:02 Folic Acid 1 Mg Tab PO 1 mg QDAY [facility] Administration Fondaparinux 7.5 mg 10/06/21 11:00 10/06/21 11:00 Fondaparinux 7.5 Mg/0.6 Ml Inj SUB-Q 7.5 mg QDAY [facility] Administration Hydromorphone HCl 0.5 mg 09/30/21 13:14 10/01/21 15:55 Hydromorphone 0.5 Mg/0.5 Ml Inj IV 0.5 mg Q3H PRN Administration Pain , Severe (7-10) Isosorbide Dinitrate 10 mg 10/01/21 22:00 10/06/21 11:02 Isosorbide Dinitrate 10 Mg Tab PO 10 mg BID [facility] Administration Metoprolol Tartrate 25 mg 10/01/21 22:00 10/06/21 11:01 Metoprolol Tartrate 25 Mg Tab PO Not Given BID [facility] Morphine Sulfate 2 mg 09/30/21 13:14 10/01/21 03:35 Morphine 2 Mg/1 Ml Inj IV 2 mg Q4H PRN Administration Pain, Moderate (4-6) Ondansetron HCl 4 mg 09/30/21 13:14 Ondansetron 4 Mg/2 Ml Inj IV Q8H PRN Nausea And Vomiting Pantoprazole Sodium 40 mg 10/02/21 07:30 10/05/21 11:49 Pantoprazole 40 Mg Tab PO 40 mg QDAC [facility] Administration Ranolazine 500 mg 10/01/21 22:00 10/06/21 11:03 Ranolazine Er 500 Mg Tab 12hr PO 500 mg BID [facility] Administration Venlafaxine HCl 37.5 mg 10/02/21 10:00 10/06/21 11:03 Venlafaxine 37.5 Mg Tab PO 37.5 mg QDAY [facility] Administration Vitamin E 200 unit 10/01/21 12:00 10/06/21 11:03 Tocopherol 200 Unit Cap PO 200 unit QDAY [facility] Administration Warfarin Sodium 7.5 mg 10/05/21 17:00 10/05/21 18:34 Warfarin 7.5 Mg Tab PO 7.5 mg DAILY@1700 [facility] Administration Protocol
[2021-10-06] MEDS: WARFARIN 7.5 MG TAB PO SCH (18:29)
[2021-10-06] MEDS: PANTOPRAZOLE 40 MG TAB PO SCH (18:30)
[2021-10-06] MEDS: FERROUS SULFATE 325 MG TAB PO SCH (18:30)
[2021-10-06 21:31] LABS: Cardiolipin Ab IgA <2.0 APL-U/mL (<20.0); Cardiolipin Ab IgG <2.0 GPL-U/mL (<20.0); Cardiolipin Ab IgM <2.0 MPL-U/mL (<20.0)
[2021-10-07 08:19] LABS: Alanine Aminotransferase 15 units/L (7-56); BUN/Creatinine Ratio 18; Blood Urea Nitrogen 9 mg/dL (9-20); Calcium 8.5 mg/dL (8.4-10.2); Hemolysis Index 4
[2021-10-07 08:20] LABS: Hematocrit 33.7 % (35.5-45.6); Hemoglobin 11.4 gm/dl (11.8-15.2); Mean Corpuscular HGB Conc 34 % (32-34); Mean Corpuscular Volume 90 fl (84-94); Platelet Count 181 K/mm3 (140-440); Red Blood Count 3.75 M/mm3 (3.65-5.03); Red Cell Distribution Width 14.9 % (13.2-15.2)
[2021-10-07 08:28] LABS: INR 1.52 (0.87-1.13)
[2021-10-07] MEDS: ASCORBIC ACID 500 MG TAB PO SCH (12:27)
[2021-10-07] MEDS: METOPROLOL TARTRATE 25 MG TAB PO SCH ×2 (12:28→21:16)
[2021-10-07] MEDS: ASPIRIN EC 81 MG TAB PO SCH (12:29)
[2021-10-07] MEDS: FERROUS SULFATE 325 MG TAB PO SCH (12:29)
[2021-10-07] MEDS: FOLIC ACID 1 MG TAB PO SCH (12:29)
[2021-10-07] MEDS: CLOPIDOGREL 75 MG TAB PO SCH (12:29)
[2021-10-07] MEDS: FONDAPARINUX 7.5 MG/0.6 ML INJ SUB-Q SCH (12:34)
[2021-10-07] MEDS: VENLAFAXINE 37.5 MG TAB PO SCH (12:34)
[2021-10-07] MEDS: RANOLAZINE ER 500 MG TAB 12HR PO SCH ×2 (12:35→21:13)
[2021-10-07] MEDS: ISOSORBIDE DINITRATE 10 MG TAB PO SCH ×2 (12:35→21:12)
--- NOTE | 2021-10-07 14:38 | Progress Note ---
Assessment and Plan Patient with coagulopathy initiated on Coumadin. His INR today is 1.5. We will discharge once he becomes therapeutic Subjective Date of service: 10/07/21 Principal diagnosis: Acute arterial occlusion left leg Interval history: Patient with no complaints. Except he is ready to go home. Patient is ambulating with walker to restroom and back. Palpable pedal pulses. Mild reperfusion edema. Objective - Constitutional Vitals: Vital Signs - 12hr 10/07/21 10/07/21 10/07/21 04:37 08:54 11:10 Temperature 97.4 F L 97.9 F 98.0 F Pulse Rate 49 L 53 L 56 L Respiratory 18 16 16 Rate Blood Pressure 114/71 141/75 Blood Pressure 135/75 [Left] O2 Sat by Pulse 98 98 94 Oximetry 10/07/21 12:28 Temperature Pulse Rate 55 L Respiratory Rate Blood Pressure Blood Pressure [Left] O2 Sat by Pulse Oximetry General appearance: Present: no acute distress - EENT Eyes: EOM intact ENT: hearing intact - Neck Neck: supple Extremities: abnormal (Right BKA, left leg with reperfusion edema) - Gastrointestinal General gastrointestinal: Present: deferred Rectal Exam: deferred - Genitourinary Male genitourinary: deferred - Psychiatric Psychiatric: appropriate mood/affect, cooperative - Labs CBC & Chem 7: 10/07/21 07:24 10/07/21 07:24 Labs: Abnormal lab results 10/07/21 10/07/21 10/07/21 Range/Units 07:24 07:24 07:24 Hgb 11.4 L (11.8-15.2) gm/dl Hct 33.7 L (35.5-45.6) % PT 20.2 H (12.2-14.9) Sec. INR 1.52 H (0.87-1.13) Creatinine 0.5 L (0.8-1.3) mg/dL Total Protein 5.7 L (6.3-8.2) g/dL Albumin 3.0 L (3.9-5) g/dL Medications & Allergies - Medications Allergies/Adverse Reactions: Allergies procaine [From Novocain] Allergy (Verified 10/06/21 07:42) Blacks out heparin Adverse Reaction (Verified 10/06/21 07:42) BLOOD CLOTS Home Medications: Home Medications Medication Instructions Recorded Confirmed Last Taken Type Aspirin [Adult Aspirin] 81 mg PO DAILY 12/03/20 10/06/21 09/23/21 History 1 tab AtorvaSTATin [Lipitor] 40 mg PO QHS 12/03/20 10/06/21 09/23/21 History 1 tab Isosorbide Dinitrate [Isordil] 10 mg PO BID #60 tablet 12/09/20 10/06/21 09/23/21 Rx 2 tab Apixaban [Eliquis] 5 mg PO BID 02/15/21 10/06/21 09/23/21 History 1 tab Metoprolol [Lopressor TAB] 25 mg PO BID 02/15/21 10/06/21 09/23/21 History 2 tabs Venlafaxine [Effexor 37.5mg tab] 37.5 mg PO QDAY 02/15/21 10/06/21 09/23/21 History 1 tab Clopidogrel [Plavix] 75 mg PO QDAY #90 tablet 02/19/21 10/06/21 09/23/21 Rx 1 tab Ranolazine ER [Ranexa ER] 500 mg PO BID 05/25/21 10/06/21 09/23/21 History 2 tab Vitamin E (Dl,Tocopheryl Acet) 180 mg PO DAILY 06/23/21 10/06/21 09/23/21 History [Vitamin E] 1 tab Ferrous Sulfate [Feosol 325 MG tab] 325 mg PO QDAY 90 Days #90 tablet 10/06/21 Unknown Rx Active Medications: Generic Name Dose Route Start Last Admin Trade Name Freq PRN Reason Stop Dose Admin Acetaminophen 650 mg 09/30/21 13:14 10/03/21 16:02 Acetaminophen 325 Mg Tab PO 650 mg Q6H PRN Administration Pain, Mild (1-3) Hydrocodone Bitart/Acetaminophen 2 each 09/30/21 13:14 10/04/21 00:58 Hydrocodone/Acetaminophen 5-325 Mg Tab PO 2 each Q6H PRN Administration Pain, Moderate (4-6) Ascorbic Acid 500 mg 10/07/21 10:00 10/07/21 12:27 Ascorbic Acid 500 Mg Tab PO 500 mg QDAY SUSU Administration Aspirin 81 mg 10/02/21 10:00 10/07/21 12:29 Aspirin Ec 81 Mg Tab PO 81 mg DAILY SUSU Administration Atorvastatin Calcium 40 mg 10/01/21 22:00 10/06/21 21:36 Atorvastatin 40 Mg Tab PO 40 mg QHS SUSU Administration Clopidogrel Bisulfate 75 mg 10/02/21 10:00 10/07/21 12:29 Clopidogrel 75 Mg Tab PO 75 mg QDAY SUSU Administration Ferrous Sulfate 325 mg 10/06/21 15:00 10/07/21 12:29 Ferrous Sulfate 325 Mg Tab PO 325 mg QDAY SUSU Administration Folic Acid 1 mg 10/02/21 10:00 10/07/21 12:29 Folic Acid 1 Mg Tab PO 1 mg QDAY SUSU Administration Fondaparinux 7.5 mg 10/06/21 11:00 10/07/21 12:34 Fondaparinux 7.5 Mg/0.6 Ml Inj SUB-Q 7.5 mg QDAY [facility] Administration Hydromorphone HCl 0.5 mg 09/30/21 13:14 10/01/21 15:55 Hydromorphone 0.5 Mg/0.5 Ml Inj IV 0.5 mg Q3H PRN Administration Pain , Severe (7-10) Isosorbide Dinitrate 10 mg 10/01/21 22:00 10/07/21 12:35 Isosorbide Dinitrate 10 Mg Tab PO 10 mg BID SUSU Administration Metoprolol Tartrate 25 mg 10/01/21 22:00 10/07/21 12:28 Metoprolol Tartrate 25 Mg Tab PO Not Given BID [facility] Morphine Sulfate 2 mg 09/30/21 13:14 10/01/21 03:35 Morphine 2 Mg/1 Ml Inj IV 2 mg Q4H PRN Administration Pain, Moderate (4-6) Ondansetron HCl 4 mg 09/30/21 13:14 Ondansetron 4 Mg/2 Ml Inj IV Q8H PRN Nausea And Vomiting Pantoprazole Sodium 40 mg 10/02/21 07:30 10/06/21 18:30 Pantoprazole 40 Mg Tab PO 40 mg QDAC SUSU Administration Ranolazine 500 mg 10/01/21 22:00 10/07/21 12:35 Ranolazine Er 500 Mg Tab 12hr PO 500 mg BID SUSU Administration Venlafaxine HCl 37.5 mg 10/02/21 10:00 10/07/21 12:34 Venlafaxine 37.5 Mg Tab PO 37.5 mg QDAY [facility] Administration Vitamin E 200 unit 10/01/21 12:00 10/06/21 11:03 Tocopherol 200 Unit Cap PO 200 unit QDAY [facility] Administration Warfarin Sodium 10 mg 10/07/21 17:00 Warfarin 10 Mg Tab PO 10/08/21 16:59 DAILY@1700 [facility]
[2021-10-07] MEDS ORDERED: WARFARIN 10 MG TAB PO SCH (17:00)
[2021-10-07 17:23] LABS: Heparin-Induced Platelet Antib Negative (Negative); Unfractionated Heparin Negative (Negative)
[2021-10-07] MEDS: PANTOPRAZOLE 40 MG TAB PO SCH (18:26)
[2021-10-07] MEDS: TOCOPHEROL 200 UNIT CAP PO SCH (18:27)
[2021-10-08 05:45] LABS: Hematocrit 35.2 % (35.5-45.6); Hemoglobin 11.7 gm/dl (11.8-15.2); Mean Corpuscular HGB Conc 33 % (32-34); Mean Corpuscular Volume 90 fl (84-94); Platelet Count 216 K/mm3 (140-440); Red Cell Distribution Width 14.4 % (13.2-15.2)
[2021-10-08 05:56] LABS: INR 1.64 (0.87-1.13)
[2021-10-08 06:04] LABS: Alanine Aminotransferase 13 units/L (7-56); Albumin 3.1 g/dL (3.9-5); Blood Urea Nitrogen 10 mg/dL (9-20); Calcium 8.6 mg/dL (8.4-10.2); Hemolysis Index 6
[2021-10-08 06:05] LABS: BUN/Creatinine Ratio 17
[2021-10-08] MEDS: CLOPIDOGREL 75 MG TAB PO SCH (09:48)
[2021-10-08] MEDS: FOLIC ACID 1 MG TAB PO SCH (09:48)
[2021-10-08] MEDS: FERROUS SULFATE 325 MG TAB PO SCH (09:48)
[2021-10-08] MEDS: TOCOPHEROL 200 UNIT CAP PO SCH (09:48)
[2021-10-08] MEDS: ASCORBIC ACID 500 MG TAB PO SCH (09:49)
[2021-10-08] MEDS: RANOLAZINE ER 500 MG TAB 12HR PO SCH ×2 (09:49→22:00)
[2021-10-08] MEDS: ASPIRIN EC 81 MG TAB PO SCH (09:49)
[2021-10-08] MEDS: VENLAFAXINE 37.5 MG TAB PO SCH (09:50)
[2021-10-08] MEDS: ISOSORBIDE DINITRATE 10 MG TAB PO SCH ×2 (09:50→22:00)
[2021-10-08] MEDS: PANTOPRAZOLE 40 MG TAB PO SCH (09:51)
[2021-10-08] MEDS: FONDAPARINUX 7.5 MG/0.6 ML INJ SUB-Q SCH (09:51)
[2021-10-08] MEDS: METOPROLOL TARTRATE 25 MG TAB PO SCH ×2 (09:51→22:00)
--- NOTE | 2021-10-08 10:51 | Progress Note ---
Assessment and Plan Assessment and plan: #Anaphylaxis #Drug reaction to IV iron-resolved #Iron deficiency anemia -continue ferrous sulfate 325 qday inpatient and outpatient #Peripheral vascular disease -management per primary team Thank you for this consult. The patient is currently stable and we will sign off at this time. Please feel free to call with any questions or concerns. History Interval history: No acute events overnight. Patient reports feeling more "relaxed". He denies chest pain, shortness of breath. Hospitalist Physical - Physical exam Narrative exam: GENERAL: Well-developed well-nourished. In no acute distress. HEENT: Normocephalic. Atraumatic. CHEST/LUNGS: CTAB on room air HEART/CARDIOVASCULAR: RRR. No murmur, rubs or gallops appreciated. ABDOMEN: +BS. NT/ND. NEURO: No focal motor deficit. Follows all commands. MUSCULOSKELETAL: No joint effusion EXTREMITIES: RLE BKA stump dressed. LLE w/o swelling, cyanosis. PSYCH: Cooperative. - Constitutional Vitals: Temp Pulse Resp BP Pulse Ox 97.8 F 53 L 18 122/75 98 10/08/21 07:57 10/08/21 07:57 10/08/21 08:00 10/08/21 07:57 10/08/21 08:00 General appearance: Present: no acute distress Results - Labs CBC & Chem 7: 10/08/21 05:18 10/08/21 05:18 Labs: Laboratory Last Values WBC 5.1 K/mm3 (4.5-11.0) 10/08/21 05:18 RBC 3.90 M/mm3 (3.65-5.03) 10/08/21 05:18 Hgb 11.7 gm/dl (11.8-15.2) L 10/08/21 05:18 Hct 35.2 % (35.5-45.6) L 10/08/21 05:18 MCV 90 fl (84-94) 10/08/21 05:18 MCH 30 pg (28-32) 10/08/21 05:18 MCHC 33 % (32-34) 10/08/21 05:18 RDW 14.4 % (13.2-15.2) 10/08/21 05:18 Plt Count 216 K/mm3 (140-440) 10/08/21 05:18 Lymph % (Auto) 28.9 % (13.4-35.0) 10/01/21 05:55 [place] % (Auto) 8.8 % (0.0-7.3) H 10/01/21 05:55 Eos % (Auto) 2.7 % (0.0-4.3) 10/01/21 05:55 Baso % (Auto) 0.4 % (0.0-1.8) 10/01/21 05:55 Lymph # (Auto) 2.0 K/mm3 (1.2-5.4) 10/01/21 05:55 [place] # (Auto) 0.6 K/mm3 (0.0-0.8) 10/01/21 05:55 Eos # (Auto) 0.2 K/mm3 (0.0-0.4) 10/01/21 05:55 Baso # (Auto) 0.0 K/mm3 (0.0-0.1) 10/01/21 05:55 Seg Neutrophils % 59.2 % (40.0-70.0) 10/01/21 05:55 Seg Neutrophils # 4.2 K/mm3 (1.8-7.7) 10/01/21 05:55 Percent Retic 1.28 % (0.78-2.58) 10/05/21 14:32 PT 21.5 Sec. (12.2-14.9) H 10/08/21 05:18 INR 1.64 (0.87-1.13) H 10/08/21 05:18 APTT 36.2 Sec. (24.2-36.6) 10/06/21 19:21 Fibrinogen 236 mg/dl (211-480) 10/01/21 05:55 Heparin Anti-Xa Level 0.30 U.I./ml (0.3-0.7) 10/01/21 05:55 Heparin Anti-Xa, Unfract Negative (Negative) 10/04/21 23:59 Sodium 139 mmol/L (137-145) 10/08/21 05:18 Potassium 4.3 mmol/L (3.6-5.0) 10/08/21 05:18 Chloride 106.4 mmol/L (98-107) 10/08/21 05:18 Carbon Dioxide 23 mmol/L (22-30) 10/08/21 05:18 Anion Gap 14 mmol/L 10/08/21 05:18 BUN 10 mg/dL (9-20) 10/08/21 05:18 Creatinine 0.6 mg/dL (0.8-1.3) L 10/08/21 05:18 Estimated GFR > 60 ml/min 10/08/21 05:18 BUN/Creatinine Ratio 17 % 10/08/21 05:18 Glucose 104 mg/dL (75-100) H 10/08/21 05:18 POC Glucose 106 mg/dL (70-105) H 10/06/21 05:34 Calcium 8.6 mg/dL (8.4-10.2) 10/08/21 05:18 Iron 36 ug/dL (49-181) L 10/04/21 13:17 TIBC 245 mcg/dL (250-450) L 10/04/21 13:17 Ferritin 221.2 ng/mL (30.0-300.0) 10/04/21 13:17 Total Bilirubin < 0.20 mg/dL (0.1-1.2) 10/08/21 05:18 AST 15 units/L (5-40) 10/08/21 05:18 ALT 13 units/L (7-56) 10/08/21 05:18 Alkaline Phosphatase 72 units/L (35-129) 10/08/21 05:18 Lactate Dehydrogenase 197 units/L (91-180) H 10/05/21 14:32 Total Protein 5.8 g/dL (6.3-8.2) L 10/08/21 05:18 Albumin 3.1 g/dL (3.9-5) L 10/08/21 05:18 Albumin/Globulin Ratio 1.1 % 10/08/21 05:18 Heparin-induced Plt Ab Negative (Negative) 10/04/21 23:59 UF Heparin High Dose 0 % Release 10/04/21 23:59 DIAMOND UFH Low Dose 0.1 3 % Release 10/04/21 23:59 DIAMOND UFH Low Dose 0.5 1 % Release 10/04/21 23:59 Cardiolipid IgG Ab <2.0 GPL-U/mL (<20.0) 10/05/21 06:38 Cardiolipid IgA Ab <2.0 APL-U/mL (<20.0) 10/05/21 06:38 Cardiolipid IgM Ab <2.0 MPL-U/mL (<20.0) 10/05/21 06:38 Direct Antiglob Test Negative 10/05/21 Unknown BETO, Poly Interpret Negative 10/05/21 Unknown [place]/IV: Voiding Method Urinal Active Medications - Current Medications Current Medications: Generic Name Dose Route Start Last Admin Trade Name Freq PRN Reason Stop Dose Admin Acetaminophen 650 mg 09/30/21 13:14 10/03/21 16:02 Acetaminophen 325 Mg Tab PO 650 mg Q6H PRN Administration Pain, Mild (1-3) Hydrocodone Bitart/Acetaminophen 2 each 09/30/21 13:14 10/04/21 00:58 Hydrocodone/Acetaminophen 5-325 Mg Tab PO 2 each Q6H PRN Administration Pain, Moderate (4-6) Ascorbic Acid 500 mg 10/07/21 10:00 10/08/21 09:49 Ascorbic Acid 500 Mg Tab PO 500 mg QDAY SUSU Administration Aspirin 81 mg 10/02/21 10:00 10/08/21 09:49 Aspirin Ec 81 Mg Tab PO 81 mg DAILY SUSU Administration Atorvastatin Calcium 40 mg 10/01/21 22:00 10/07/21 21:13 Atorvastatin 40 Mg Tab PO 40 mg QHS SUSU Administration Clopidogrel Bisulfate 75 mg 10/02/21 10:00 10/08/21 09:48 Clopidogrel 75 Mg Tab PO 75 mg QDAY SUSU Administration Ferrous Sulfate 325 mg 10/06/21 15:00 10/08/21 09:48 Ferrous Sulfate 325 Mg Tab PO 325 mg QDAY SUSU Administration Folic Acid 1 mg 10/02/21 10:00 10/08/21 09:48 Folic Acid 1 Mg Tab PO 1 mg QDAY SUSU Administration Fondaparinux 7.5 mg 10/06/21 11:00 10/08/21 09:51 Fondaparinux 7.5 Mg/0.6 Ml Inj SUB-Q 7.5 mg QDAY SUSU Administration Hydromorphone HCl 0.5 mg 09/30/21 13:14 10/01/21 15:55 Hydromorphone 0.5 Mg/0.5 Ml Inj IV 0.5 mg Q3H PRN Administration Pain , Severe (7-10) Isosorbide Dinitrate 10 mg 10/01/21 22:00 07/22/22 09:50 Isosorbide Dinitrate 10 Mg Tab PO 10 mg BID SUSU Administration Metoprolol Tartrate 25 mg 10/01/21 22:00 10/08/21 09:51 Metoprolol Tartrate 25 Mg Tab PO Not Given BID SUSU Morphine Sulfate 2 mg 09/30/21 13:14 10/01/21 03:35 Morphine 2 Mg/1 Ml Inj IV 2 mg Q4H PRN Administration Pain, Moderate (4-6) Ondansetron HCl 4 mg 09/30/21 13:14 Ondansetron 4 Mg/2 Ml Inj IV Q8H PRN Nausea And Vomiting Pantoprazole Sodium 40 mg 10/02/21 07:30 10/08/21 09:51 Pantoprazole 40 Mg Tab PO Not Given QDAC [facility] Ranolazine 500 mg 10/01/21 22:00 10/08/21 09:49 Ranolazine Er 500 Mg Tab 12hr PO 500 mg BID SUSU Administration Venlafaxine HCl 37.5 mg 10/02/21 10:00 10/08/21 09:50 Venlafaxine 37.5 Mg Tab PO 37.5 mg QDAY [facility] Administration Vitamin E 200 unit 10/01/21 12:00 10/08/21 09:48 Tocopherol 200 Unit Cap PO 200 unit QDAY [facility] Administration Warfarin Sodium 10 mg 10/07/21 17:00 10/07/21 18:27 Warfarin 10 Mg Tab PO 10/08/21 16:59 10 mg DAILY@1700 [facility] Administration Nutrition/Malnutrition Assess - Dietary Evaluation Nutrition/Malnutrition Findings: Nutrition Notes Start: 10/04/21 13:49 Freq: Status: Active Protocol: Document 10/04/21 13:49 ALAN (Rec: 10/04/21 14:38 ALAN [id number]) Nutrition Notes Initial or Follow up Assessment Current Diagnosis Hypertension,Hyperlipidemia Other Pertinent Diagnosis PVD s/p EKOS Therapy, s/p Revascularization of L-LE. Current Diet Cardiac Diet (since D 10/01). Labs/Tests 10/04: BUN 8, Crea 0.5. Pertinent Medications 10/04: Folic acid, Vit E, Coumadin, others nutritionally unremarkable. 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 Weight Status Appropriate Subjective/Other Information RD consult for warfarine use assessment. No reports available on Pt's PO intake of meals at the time , will assess at F/U. Pt is on Room Air, O2 saturation @ 97%, according to Physical Assessment Histoery notes. Pt has missing teeth and caries, according to Physical Assessment History notes. Procedure on 09/30: L-LE Thrombectomy and EKOS Thrombolysis Cathter placment. , well tolerated, according to Operative Report notes. Procedure on 10/01: L-LE removal of the EKOS Thrombolysis Catheter, Angioplasty of the L-TA, Angioplasty and stent placement of L-TPT, Angioplasty ot L-GLENROY, and Closure of R-F Arteriotomy, well tolerated, according to Operative Report notes. Pt is a new warfarinw user, nutrition education will be provided at F/U. Pt presents a surgical wound on the R-Groin area, according to Physical Assessment History notes. Percent of energy/protein needs met: Prescribed Cardiac Diet provides for energy/protein needs (2,230 Kcal/85 g) during LOS. Burn Absent Trauma Absent GI Symptoms None Food Allergy No Skin Integrity/Comment Surgical wound on the R-Groin area. 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 Is patient on ventilator? No Is Patient Ambulatory and/or Out of Bed No REE-([facility]-confined to bed) 1889.616 Kcal/Kg value to use for calculation 30 Approximate Energy Requirements Using 2286 kcal/Kg Calculation Used for Recommendations Kcal/kg Additional Notes Protein: 1-1.2 g/Kg ABW; 76-91 g/day. Fluids: 1 ml/Kcal, or as per MD. Nutrition Intervention Change Diet Order: Continue Cardiac Diet. Education Handouts Provided AND: Vitamin K And Medications , Cardiac-TLC Nutrition Therapy, and MyPlate For Meal Planning. Goal #1 During LOS, provide Pt with nutrition education to foster behavioral changes towards a healthy lifestyle. Follow-Up By: 10/11/21 Additional Comments Nutrition education will be provided at F/U, if feasible. Continue monitoring food tolerance, %PO intake of meals , and BM.
--- NOTE | 2021-10-08 12:42 | Hem/Onc Progress Note ---
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 --> reports being told blood was "jello- like" consistency Recent endovascular intervention and oral anticoagulation with Eliquis and Plavix Now LLE, no palpable pedal pulses and cyanotic changes of foot Angiogram demonstrated occlusion of his recently revascularized SFA and popliteal artery S/p EKOS thrombectomy and thrombolysis Left lower extremity is currently well perfused and with no evidence of compartment syndrome Patient was started on Argatroban drip and Coumadin Hematology following for anticoagulant management Patient examined at bedside, in no acute distress noted, accompanied by at bedside. Reports feeling better than previous days. Data reviewed below IMP: Anemia, related to iron deficiency --Doubt cold agglutin disease, hemolytic anemia testing negative Clotting tendency, hypercoagulable state, likely related to HIT history and arterial occlusions Anticardiolipin ab negative, doubt antiphospholipid syndrome Abd/Pel CT negative for malignancy Thrombocytopenia, resolved, likely related to presumed liver dysfunction, HIT Plan: Continue Arixtra and Warfarin per pharmacy recommendations Needs Coumadin clinic outpatient follow up plan Must remain in hospital until INR is therapeutic Would benefit from IV iron infusions, continue oral iron supplements due to infusion reaction Recommend outpatient GI follow up for colonoscopy/endoscopy Laboratory Last Values WBC 5.1 K/mm3 (4.5-11.0) 10/08/21 05:18 RBC 3.90 M/mm3 (3.65-5.03) 10/08/21 05:18 Hgb 11.7 gm/dl (11.8-15.2) L 10/08/21 05:18 Hct 35.2 % (35.5-45.6) L 10/08/21 05:18 MCV 90 fl (84-94) 10/08/21 05:18 Plt Count 216 K/mm3 (140-440) 10/08/21 05:18 Seg Neutrophils # 4.2 K/mm3 (1.8-7.7) 10/01/21 05:55 Percent Retic 1.28 % (0.78-2.58) 10/05/21 14:32 PT 21.5 Sec. (12.2-14.9) H 10/08/21 05:18 INR 1.64 (0.87-1.13) H 10/08/21 05:18 APTT 36.2 Sec. (24.2-36.6) 10/06/21 19:21 Fibrinogen 236 mg/dl (211-480) 10/01/21 05:55 Heparin Anti-Xa Level 0.30 U.I./ml (0.3-0.7) 10/01/21 05:55 Heparin Anti-Xa, Unfract Negative (Negative) 10/04/21 23:59 Creatinine 0.6 mg/dL (0.8-1.3) L 10/08/21 05:18 Iron 36 ug/dL (49-181) L 10/04/21 13:17 TIBC 245 mcg/dL (250-450) L 10/04/21 13:17 Ferritin 221.2 ng/mL (30.0-300.0) 10/04/21 13:17 AST 15 units/L (5-40) 10/08/21 05:18 ALT 13 units/L (7-56) 10/08/21 05:18 Alkaline Phosphatase 72 units/L (35-129) 10/08/21 05:18 Lactate Dehydrogenase 197 units/L (91-180) H 10/05/21 14:32 Heparin-induced Plt Ab Negative (Negative) 10/04/21 23:59 UF Heparin High Dose 0 % Release 10/04/21 23:59 DIAMOND UFH Low Dose 0.1 3 % Release 10/04/21 23:59 DIAMOND UFH Low Dose 0.5 1 % Release 10/04/21 23:59 Cardiolipid IgG Ab <2.0 GPL-U/mL (<20.0) 10/05/21 06:38 Cardiolipid IgA Ab <2.0 APL-U/mL (<20.0) 10/05/21 06:38 Cardiolipid IgM Ab <2.0 MPL-U/mL (<20.0) 10/05/21 06:38 Direct Antiglob Test Negative 10/05/21 Unknown BETO, Poly Interpret Negative 10/05/21 Unknown Objective - Constitutional Vitals: Last Vital Signs Temp 97.8 F 10/08/21 07:57 Pulse 53 L 10/08/21 07:57 Resp 18 10/08/21 08:00 BP 122/75 10/08/21 07:57 Pulse Ox 98 10/08/21 08:00 - Labs Lab Results: Laboratory Results - last 24 hr 10/04/21 10/08/21 10/08/21 23:59 05:18 05:18 WBC 5.1 RBC 3.90 Hgb 11.7 L Hct 35.2 L MCV 90 MCH 30 MCHC 33 RDW 14.4 Plt Count 216 PT 21.5 H INR 1.64 H Heparin Anti-Xa, Unfract Negative Sodium Potassium Chloride Carbon Dioxide Anion Gap BUN Creatinine Estimated GFR BUN/Creatinine Ratio Glucose Calcium Total Bilirubin AST ALT Alkaline Phosphatase Total Protein Albumin Albumin/Globulin Ratio Heparin-induced Plt Ab Negative UF Heparin High Dose 0 DIAMOND UFH Low Dose 0.1 3 DIAMOND UFH Low Dose 0.5 1 10/08/21 05:18 WBC RBC Hgb Hct MCV MCH MCHC RDW Plt Count PT INR Heparin Anti-Xa, Unfract Sodium 139 Potassium 4.3 Chloride 106.4 Carbon Dioxide 23 Anion Gap 14 BUN 10 Creatinine 0.6 L Estimated GFR > 60 BUN/Creatinine Ratio 17 Glucose 104 H Calcium 8.6 Total Bilirubin < 0.20 AST 15 ALT 13 Alkaline Phosphatase 72 Total Protein 5.8 L Albumin 3.1 L Albumin/Globulin Ratio 1.1 Heparin-induced Plt Ab UF Heparin High Dose DIAMOND UFH Low Dose 0.1 DIAMOND UFH Low Dose 0.5 Medications & Allergies - Medications Allergies/Adverse Reactions: Allergies procaine [From Novocain] Allergy (Verified 10/06/21 07:42) Blacks out heparin Adverse Reaction (Verified 10/06/21 07:42) BLOOD CLOTS Home Medications: Home Medications Medication Instructions Recorded Confirmed Last Taken Type Aspirin [Adult Aspirin] 81 mg PO DAILY 12/03/20 10/06/21 09/23/21 History 1 tab AtorvaSTATin [Lipitor] 40 mg PO QHS 12/03/20 10/06/21 09/23/21 History 1 tab Isosorbide Dinitrate [Isordil] 10 mg PO BID #60 tablet 12/09/20 10/06/21 09/23/21 Rx 2 tab Apixaban [Eliquis] 5 mg PO BID 02/15/21 10/06/21 09/23/21 History 1 tab Metoprolol [Lopressor TAB] 25 mg PO BID 02/15/21 10/06/21 09/23/21 History 2 tabs Venlafaxine [Effexor 37.5mg tab] 37.5 mg PO QDAY 02/15/21 10/06/21 09/23/21 History 1 tab Clopidogrel [Plavix] 75 mg PO QDAY #90 tablet 02/19/21 10/06/21 09/23/21 Rx 1 tab Ranolazine ER [Ranexa ER] 500 mg PO BID 05/25/21 10/06/21 09/23/21 History 2 tab Vitamin E (Dl,Tocopheryl Acet) 180 mg PO DAILY 06/23/21 10/06/21 09/23/21 History [Vitamin E] 1 tab Ferrous Sulfate [Feosol 325 MG tab] 325 mg PO QDAY 90 Days #90 tablet 10/06/21 Unknown Rx Active Medications: Generic Name Dose Route Start Last Admin Trade Name Isaelq PRN Reason Stop Dose Admin Acetaminophen 650 mg 09/30/21 13:14 10/03/21 16:02 Acetaminophen 325 Mg Tab PO 650 mg Q6H PRN Administration Pain, Mild (1-3) Hydrocodone Bitart/Acetaminophen 2 each 09/30/21 13:14 10/04/21 00:58 Hydrocodone/Acetaminophen 5-325 Mg Tab PO 2 each Q6H PRN Administration Pain, Moderate (4-6) Ascorbic Acid 500 mg 10/07/21 10:00 10/08/21 09:49 Ascorbic Acid 500 Mg Tab PO 500 mg QDAY SUSU Administration Aspirin 81 mg 10/02/21 10:00 10/08/21 09:49 Aspirin Ec 81 Mg Tab PO 81 mg DAILY SUSU Administration Atorvastatin Calcium 40 mg 10/01/21 22:00 10/07/21 21:13 Atorvastatin 40 Mg Tab PO 40 mg QHS SUSU Administration Clopidogrel Bisulfate 75 mg 10/02/21 10:00 10/08/21 09:48 Clopidogrel 75 Mg Tab PO 75 mg QDAY SUSU Administration Ferrous Sulfate 325 mg 10/06/21 15:00 10/08/21 09:48 Ferrous Sulfate 325 Mg Tab PO 325 mg QDAY SUSU Administration Folic Acid 1 mg 10/02/21 10:00 10/08/21 09:48 Folic Acid 1 Mg Tab PO 1 mg QDAY SUSU Administration Fondaparinux 7.5 mg 10/06/21 11:00 10/08/21 09:51 Fondaparinux 7.5 Mg/0.6 Ml Inj SUB-Q 7.5 mg QDAY SUSU Administration Hydromorphone HCl 0.5 mg 09/30/21 13:14 10/01/21 15:55 Hydromorphone 0.5 Mg/0.5 Ml Inj IV 0.5 mg Q3H PRN Administration Pain , Severe (7-10) Isosorbide Dinitrate 10 mg 10/01/21 22:00 10/08/21 09:50 Isosorbide Dinitrate 10 Mg Tab PO 10 mg BID SUSU Administration Metoprolol Tartrate 25 mg 10/01/21 22:00 10/08/21 09:51 Metoprolol Tartrate 25 Mg Tab PO Not Given BID SUSU Morphine Sulfate 2 mg 09/30/21 13:14 10/01/21 03:35 Morphine 2 Mg/1 Ml Inj IV 2 mg Q4H PRN Administration Pain, Moderate (4-6) Ondansetron HCl 4 mg 09/30/21 13:14 Ondansetron 4 Mg/2 Ml Inj IV Q8H PRN Nausea And Vomiting Pantoprazole Sodium 40 mg 10/02/21 07:30 10/08/21 09:51 Pantoprazole 40 Mg Tab PO Not Given QDAC [facility] Ranolazine 500 mg 10/01/21 22:00 10/08/21 09:49 Ranolazine Er 500 Mg Tab 12hr PO 500 mg BID SUSU Administration Venlafaxine HCl 37.5 mg 10/02/21 10:00 10/08/21 09:50 Venlafaxine 37.5 Mg Tab PO 37.5 mg QDAY [facility] Administration Vitamin E 200 unit 10/01/21 12:00 10/08/21 09:48 Tocopherol 200 Unit Cap PO 200 unit QDAY [facility] Administration Warfarin Sodium 10 mg 10/08/21 17:00 Warfarin 10 Mg Tab PO 10/09/21 16:59 DAILY@1700 [facility]
--- NOTE | 2021-10-08 15:07 | Progress Note ---
Assessment and Plan I discussed with patient his subtherapeutic INR. Patient is willing to stay in the hospital for a few days to allow his INR to become therapeutic despite his eagerness to leave. Subjective Date of service: 10/08/21 Principal diagnosis: Acute arterial occlusion left leg Interval history: Patient continues to do well. No complaints. INR still subtherapeutic Objective - Constitutional Vitals: Vital Signs - 12hr 10/08/21 10/08/21 10/08/21 03:52 04:00 07:57 Temperature 97.1 F L 97.1 F L 97.8 F Pulse Rate 54 L 54 L 53 L Respiratory 18 18 18 Rate Blood Pressure 128/77 122/75 Blood Pressure 128/77 [Left] O2 Sat by Pulse 94 94 99 Oximetry 10/08/21 08:00 Temperature Pulse Rate Respiratory 18 Rate Blood Pressure Blood Pressure [Left] O2 Sat by Pulse 98 Oximetry General appearance: Present: no acute distress - EENT Eyes: EOM intact ENT: hearing intact - Neck Neck: supple, normal ROM - Respiratory Respiratory effort: normal Extremities: abnormal (Prior right BKA, left leg with reperfusion edema and palpable pulses) - Gastrointestinal General gastrointestinal: Present: deferred Rectal Exam: deferred - Genitourinary Male genitourinary: deferred - Psychiatric Psychiatric: appropriate mood/affect, cooperative - Labs CBC & Chem 7: 10/08/21 05:18 10/08/21 05:18 Labs: Abnormal lab results 10/08/21 10/08/21 10/08/21 Range/Units 05:18 05:18 05:18 Hgb 11.7 L (11.8-15.2) gm/dl Hct 35.2 L (35.5-45.6) % PT 21.5 H (12.2-14.9) Sec. INR 1.64 H (0.87-1.13) Creatinine 0.6 L (0.8-1.3) mg/dL Glucose 104 H (75-100) mg/dL Total Protein 5.8 L (6.3-8.2) g/dL Albumin 3.1 L (3.9-5) g/dL Medications & Allergies - Medications Allergies/Adverse Reactions: Allergies procaine [From Novocain] Allergy (Verified 10/06/21 07:42) Blacks out heparin Adverse Reaction (Verified 10/06/21 07:42) BLOOD CLOTS Home Medications: Home Medications Medication Instructions Recorded Confirmed Last Taken Type Aspirin [Adult Aspirin] 81 mg PO DAILY 12/03/20 10/06/21 09/23/21 History 1 tab AtorvaSTATin [Lipitor] 40 mg PO QHS 12/03/20 10/06/21 09/23/21 History 1 tab Isosorbide Dinitrate [Isordil] 10 mg PO BID #60 tablet 12/09/20 10/06/21 09/23/21 Rx 2 tab Apixaban [Eliquis] 5 mg PO BID 02/15/21 10/06/21 09/23/21 History 1 tab Metoprolol [Lopressor TAB] 25 mg PO BID 02/15/21 10/06/21 09/23/21 History 2 tabs Venlafaxine [Effexor 37.5mg tab] 37.5 mg PO QDAY 02/15/21 10/06/21 09/23/21 History 1 tab Clopidogrel [Plavix] 75 mg PO QDAY #90 tablet 02/19/21 10/06/21 09/23/21 Rx 1 tab Ranolazine ER [Ranexa ER] 500 mg PO BID 05/25/21 10/06/21 09/23/21 History 2 tab Vitamin E (Dl,Tocopheryl Acet) 180 mg PO DAILY 06/23/21 10/06/21 09/23/21 History [Vitamin E] 1 tab Ferrous Sulfate [Feosol 325 MG tab] 325 mg PO QDAY 90 Days #90 tablet 10/06/21 Unknown Rx Active Medications: Generic Name Dose Route Start Last Admin Trade Name Tank PRN Reason Stop Dose Admin Acetaminophen 650 mg 09/30/21 13:14 10/03/21 16:02 Acetaminophen 325 Mg Tab PO 650 mg Q6H PRN Administration Pain, Mild (1-3) Hydrocodone Bitart/Acetaminophen 2 each 09/30/21 13:14 10/04/21 00:58 Hydrocodone/Acetaminophen 5-325 Mg Tab PO 2 each Q6H PRN Administration Pain, Moderate (4-6) Ascorbic Acid 500 mg 10/07/21 10:00 10/08/21 09:49 Ascorbic Acid 500 Mg Tab PO 500 mg QDAY SUSU Administration Aspirin 81 mg 10/02/21 10:00 10/08/21 09:49 Aspirin Ec 81 Mg Tab PO 81 mg DAILY SUSU Administration Atorvastatin Calcium 40 mg 10/01/21 22:00 10/07/21 21:13 Atorvastatin 40 Mg Tab PO 40 mg QHS SUSU Administration Clopidogrel Bisulfate 75 mg 10/02/21 10:00 10/08/21 09:48 Clopidogrel 75 Mg Tab PO 75 mg QDAY SUSU Administration Ferrous Sulfate 325 mg 10/06/21 15:00 10/08/21 09:48 Ferrous Sulfate 325 Mg Tab PO 325 mg QDAY SUSU Administration Folic Acid 1 mg 10/02/21 10:00 10/08/21 09:48 Folic Acid 1 Mg Tab PO 1 mg QDAY SUSU Administration Fondaparinux 7.5 mg 10/06/21 11:00 10/08/21 09:51 Fondaparinux 7.5 Mg/0.6 Ml Inj SUB-Q 7.5 mg QDAY [facility] Administration Hydromorphone HCl 0.5 mg 09/30/21 13:14 10/01/21 15:55 Hydromorphone 0.5 Mg/0.5 Ml Inj IV 0.5 mg Q3H PRN Administration Pain , Severe (7-10) Isosorbide Dinitrate 10 mg 10/01/21 22:00 10/08/21 09:50 Isosorbide Dinitrate 10 Mg Tab PO 10 mg BID [facility] Administration Metoprolol Tartrate 25 mg 10/01/21 22:00 10/08/21 09:51 Metoprolol Tartrate 25 Mg Tab PO Not Given BID [facility] Morphine Sulfate 2 mg 09/30/21 13:14 10/01/21 03:35 Morphine 2 Mg/1 Ml Inj IV 2 mg Q4H PRN Administration Pain, Moderate (4-6) Ondansetron HCl 4 mg 09/30/21 13:14 Ondansetron 4 Mg/2 Ml Inj IV Q8H PRN Nausea And Vomiting Pantoprazole Sodium 40 mg 10/02/21 07:30 10/08/21 09:51 Pantoprazole 40 Mg Tab PO Not Given QDAC [facility] Ranolazine 500 mg 10/01/21 22:00 10/08/21 09:49 Ranolazine Er 500 Mg Tab 12hr PO 500 mg BID SUSU Administration Venlafaxine HCl 37.5 mg 10/02/21 10:00 10/08/21 09:50 Venlafaxine 37.5 Mg Tab PO 37.5 mg QDAY SUSU Administration Vitamin E 200 unit 10/01/21 12:00 10/08/21 09:48 Tocopherol 200 Unit Cap PO 200 unit QDAY S[facility] Administration Warfarin Sodium 10 mg 10/08/21 17:00 Warfarin 10 Mg Tab PO 10/09/21 16:59 DAILY@1700 NR
[2021-10-08] MEDS ORDERED: WARFARIN 10 MG TAB PO NR (17:00)
[2021-10-09 05:53] LABS: INR 1.96 (0.87-1.13)
--- NOTE | 2021-10-09 10:19 | Progress Note ---
Assessment and Plan Patient's INR is almost therapeutic. Would anticipate discharge tomorrow if his trend continues. Subjective Principal diagnosis: Acute arterial occlusion left leg Interval history: Patient resting comfortably in bed. INR 1.9 today. Objective - Constitutional Vitals: Vital Signs - 12hr 10/08/21 10/09/21 23:23 04:44 Temperature 98.1 F Pulse Rate 56 L 53 L Respiratory 20 Rate Blood Pressure 129/68 [Left] O2 Sat by Pulse 97 Oximetry General appearance: Present: no acute distress - EENT Eyes: EOM intact ENT: hearing intact - Neck Neck: supple, normal ROM - Respiratory Respiratory effort: normal Extremities: abnormal (Right BKA, left leg with mild reperfusion edema) - Gastrointestinal General gastrointestinal: Present: deferred Rectal Exam: deferred - Genitourinary Male genitourinary: deferred - Psychiatric Psychiatric: appropriate mood/affect, cooperative - Labs CBC & Chem 7: 10/08/21 05:18 10/08/21 05:18 Labs: Abnormal lab results 10/09/21 Range/Units 04:43 PT 24.8 H (12.2-14.9) Sec. INR 1.96 H (0.87-1.13) Medications & Allergies - Medications Allergies/Adverse Reactions: Allergies procaine [From Novocain] Allergy (Verified 10/06/21 07:42) Blacks out heparin Adverse Reaction (Verified 10/06/21 07:42) BLOOD CLOTS Home Medications: Home Medications Medication Instructions Recorded Confirmed Last Taken Type Aspirin [Adult Aspirin] 81 mg PO DAILY 12/03/20 10/06/21 09/23/21 History 1 tab AtorvaSTATin [Lipitor] 40 mg PO QHS 12/03/20 10/06/21 09/23/21 History 1 tab Isosorbide Dinitrate [Isordil] 10 mg PO BID #60 tablet 12/09/20 10/06/21 09/23/21 Rx 2 tab Apixaban [Eliquis] 5 mg PO BID 02/15/21 10/06/21 09/23/21 History 1 tab Metoprolol [Lopressor TAB] 25 mg PO BID 02/15/21 10/06/21 09/23/21 History 2 tabs Venlafaxine [Effexor 37.5mg tab] 37.5 mg PO QDAY 02/15/21 10/06/21 09/23/21 History 1 tab Clopidogrel [Plavix] 75 mg PO QDAY #90 tablet 02/19/21 10/06/21 09/23/21 Rx 1 tab Ranolazine ER [Ranexa ER] 500 mg PO BID 05/25/21 10/06/21 09/23/21 History 2 tab Vitamin E (Dl,Tocopheryl Acet) 180 mg PO DAILY 06/23/21 10/06/21 09/23/21 History [Vitamin E] 1 tab Ferrous Sulfate [Feosol 325 MG tab] 325 mg PO QDAY 90 Days #90 tablet 10/06/21 Unknown Rx Active Medications: Generic Name Dose Route Start Last Admin Trade Name Freq PRN Reason Stop Dose Admin Acetaminophen 650 mg 09/30/21 13:14 10/03/21 16:02 Acetaminophen 325 Mg Tab PO 650 mg Q6H PRN Administration Pain, Mild (1-3) Hydrocodone Bitart/Acetaminophen 2 each 09/30/21 13:14 10/04/21 00:58 Hydrocodone/Acetaminophen 5-325 Mg Tab PO 2 each Q6H PRN Administration Pain, Moderate (4-6) Ascorbic Acid 500 mg 10/07/21 10:00 10/08/21 09:49 Ascorbic Acid 500 Mg Tab PO 500 mg QDAY SUSU Administration Aspirin 81 mg 10/02/21 10:00 10/08/21 09:49 Aspirin Ec 81 Mg Tab PO 81 mg DAILY SUSU Administration Atorvastatin Calcium 40 mg 10/01/21 22:00 10/08/21 22:00 Atorvastatin 40 Mg Tab PO 40 mg QHS SUSU Administration Clopidogrel Bisulfate 75 mg 10/02/21 10:00 10/08/21 09:48 Clopidogrel 75 Mg Tab PO 75 mg QDAY SUSU Administration Ferrous Sulfate 325 mg 10/06/21 15:00 10/08/21 09:48 Ferrous Sulfate 325 Mg Tab PO 325 mg QDAY SUSU Administration Folic Acid 1 mg 10/02/21 10:00 10/08/21 09:48 Folic Acid 1 Mg Tab PO 1 mg QDAY S[facility] Administration Fondaparinux 7.5 mg 10/06/21 11:00 10/08/21 09:51 Fondaparinux 7.5 Mg/0.6 Ml Inj SUB-Q 7.5 mg QDAY [facility] Administration Hydromorphone HCl 0.5 mg 09/30/21 13:14 10/01/21 15:55 Hydromorphone 0.5 Mg/0.5 Ml Inj IV 0.5 mg Q3H PRN Administration Pain , Severe (7-10) Isosorbide Dinitrate 10 mg 10/01/21 22:00 10/08/21 22:00 Isosorbide Dinitrate 10 Mg Tab PO Not Given BID [facility] Metoprolol Tartrate 25 mg 10/01/21 22:00 10/08/21 22:00 Metoprolol Tartrate 25 Mg Tab PO Not Given BID [facility] Morphine Sulfate 2 mg 09/30/21 13:14 10/01/21 03:35 Morphine 2 Mg/1 Ml Inj IV 2 mg Q4H PRN Administration Pain, Moderate (4-6) Ondansetron HCl 4 mg 09/30/21 13:14 Ondansetron 4 Mg/2 Ml Inj IV Q8H PRN Nausea And Vomiting Pantoprazole Sodium 40 mg 10/02/21 07:30 10/08/21 09:51 Pantoprazole 40 Mg Tab PO Not Given QDAC [facility] Ranolazine 500 mg 10/01/21 22:00 10/08/21 22:00 Ranolazine Er 500 Mg Tab 12hr PO 500 mg BID [facility] Administration Venlafaxine HCl 37.5 mg 10/02/21 10:00 10/08/21 09:50 Venlafaxine 37.5 Mg Tab PO 37.5 mg QDAY [facility] Administration Vitamin E 200 unit 10/01/21 12:00 10/08/21 09:48 Tocopherol 200 Unit Cap PO 200 unit QDAY [facility] Administration Warfarin Sodium 10 mg 10/09/21 17:00 Warfarin 10 Mg Tab PO 10/10/21 16:59 DAILY@1700 NR
[2021-10-09] MEDS: VENLAFAXINE 37.5 MG TAB PO SCH (11:32)
[2021-10-09] MEDS: FONDAPARINUX 7.5 MG/0.6 ML INJ SUB-Q SCH (11:32)
[2021-10-09] MEDS: ISOSORBIDE DINITRATE 10 MG TAB PO SCH ×2 (11:33→22:06)
[2021-10-09] MEDS: FOLIC ACID 1 MG TAB PO SCH (11:33)
[2021-10-09] MEDS: FERROUS SULFATE 325 MG TAB PO SCH (11:33)
[2021-10-09] MEDS: ASPIRIN EC 81 MG TAB PO SCH (11:33)
[2021-10-09] MEDS: CLOPIDOGREL 75 MG TAB PO SCH (11:34)
[2021-10-09] MEDS: METOPROLOL TARTRATE 25 MG TAB PO SCH ×2 (11:34→22:07)
[2021-10-09] MEDS: TOCOPHEROL 200 UNIT CAP PO SCH (11:34)
[2021-10-09] MEDS: RANOLAZINE ER 500 MG TAB 12HR PO SCH ×2 (11:34→23:06)
[2021-10-09] MEDS: ASCORBIC ACID 500 MG TAB PO SCH (11:35)
[2021-10-09] MEDS ORDERED: WARFARIN 10 MG TAB PO NR (17:00)
[2021-10-09] MEDS ORDERED: ZOLPIDEM 5 MG TAB PO PRN (22:48)
[2021-10-10 06:33] LABS: INR 1.87 (0.87-1.13)
[2021-10-10 06:46] VITALS: BP 118/69
[2021-10-10] MEDS: PANTOPRAZOLE 40 MG TAB PO SCH ×2 (07:16→10:26)
--- NOTE | 2021-10-10 10:18 | Progress Note ---
Assessment and Plan Patient's INR decreased slightly to 1.8. Patient stated that he did not receive his medications until after 11 PM last night. We will remeasure his INR at 1:00 this afternoon. Subjective Date of service: 10/10/21 Principal diagnosis: Acute arterial occlusion left leg Interval history: Patient stable, awaiting INR to become therapeutic. Objective - Constitutional Vitals: Vital Signs - 12hr 10/10/21 10/10/21 10/10/21 00:00 00:56 04:00 Temperature 97.6 F 98.0 F 97.6 F Pulse Rate 61 61 Respiratory 18 20 18 Rate Blood Pressure 114/58 Blood Pressure 118/69 [Left] O2 Sat by Pulse 95 96 95 Oximetry 10/10/21 04:32 Temperature 97.6 F Pulse Rate 61 Respiratory 18 Rate Blood Pressure 110/61 Blood Pressure [Left] O2 Sat by Pulse 95 Oximetry General appearance: Present: no acute distress - EENT Eyes: EOM intact ENT: hearing intact - Neck Neck: supple, normal ROM - Respiratory Respiratory effort: normal Extremities: abnormal (Right BKA) - Gastrointestinal General gastrointestinal: Present: deferred Rectal Exam: deferred - Genitourinary Male genitourinary: deferred - Labs CBC & Chem 7: 10/08/21 05:18 10/08/21 05:18 Labs: Abnormal lab results 10/10/21 Range/Units 06:04 PT 23.9 H (12.2-14.9) Sec. INR 1.87 H (0.87-1.13) Medications & Allergies - Medications Allergies/Adverse Reactions: Allergies procaine [From Novocain] Allergy (Verified 10/06/21 07:42) Blacks out heparin Adverse Reaction (Verified 10/06/21 07:42) BLOOD CLOTS Home Medications: Home Medications Medication Instructions Recorded Confirmed Last Taken Type Aspirin [Adult Aspirin] 81 mg PO DAILY 12/03/20 10/06/21 09/23/21 History 1 tab AtorvaSTATin [Lipitor] 40 mg PO QHS 12/03/20 10/06/21 09/23/21 History 1 tab Isosorbide Dinitrate [Isordil] 10 mg PO BID #60 tablet 12/09/20 10/06/21 09/23/21 Rx 2 tab Apixaban [Eliquis] 5 mg PO BID 02/15/21 10/06/21 09/23/21 History 1 tab Metoprolol [Lopressor TAB] 25 mg PO BID 02/15/21 10/06/21 09/23/21 History 2 tabs Venlafaxine [Effexor 37.5mg tab] 37.5 mg PO QDAY 02/15/21 10/06/21 09/23/21 History 1 tab Clopidogrel [Plavix] 75 mg PO QDAY #90 tablet 02/19/21 10/06/21 09/23/21 Rx 1 tab Ranolazine ER [Ranexa ER] 500 mg PO BID 05/25/21 10/06/21 09/23/21 History 2 tab Vitamin E (Dl,Tocopheryl Acet) 180 mg PO DAILY 06/23/21 10/06/21 09/23/21 History [Vitamin E] 1 tab Ferrous Sulfate [Feosol 325 MG tab] 325 mg PO QDAY 90 Days #90 tablet 10/06/21 Unknown Rx Warfarin [Coumadin] 2.5 mg PO QDAY #30 tablet 10/10/21 Unknown Rx Warfarin [Coumadin] 10 mg PO QDAY #30 tablet 10/10/21 Unknown Rx oxyCODONE /ACETAMINOPHEN [Percocet 1 tab PO Q6HR PRN #30 tablet 10/10/21 Unknown Rx 5/325] Active Medications: Generic Name Dose Route Start Last Admin Trade Name Freq PRN Reason Stop Dose Admin Acetaminophen 650 mg 09/30/21 13:14 10/03/21 16:02 Acetaminophen 325 Mg Tab PO 650 mg Q6H PRN Administration Pain, Mild (1-3) Hydrocodone Bitart/Acetaminophen 2 each 09/30/21 13:14 10/04/21 00:58 Hydrocodone/Acetaminophen 5-325 Mg Tab PO 2 each Q6H PRN Administration Pain, Moderate (4-6) Ascorbic Acid 500 mg 10/07/21 10:00 10/09/21 11:35 Ascorbic Acid 500 Mg Tab PO 500 mg QDAY SUSU Administration Aspirin 81 mg 10/02/21 10:00 10/09/21 11:33 Aspirin Ec 81 Mg Tab PO 81 mg DAILY SUSU Administration Atorvastatin Calcium 40 mg 10/01/21 22:00 10/09/21 23:06 Atorvastatin 40 Mg Tab PO 40 mg QHS SUSU Administration Clopidogrel Bisulfate 75 mg 10/02/21 10:00 10/09/21 11:34 Clopidogrel 75 Mg Tab PO 75 mg QDAY SUSU Administration Ferrous Sulfate 325 mg 10/06/21 15:00 10/09/21 11:33 Ferrous Sulfate 325 Mg Tab PO 325 mg QDAY SUSU Administration Folic Acid 1 mg 10/02/21 10:00 10/09/21 11:33 Folic Acid 1 Mg Tab PO 1 mg QDAY SUSU Administration Fondaparinux 7.5 mg 10/06/21 11:00 10/09/21 11:32 Fondaparinux 7.5 Mg/0.6 Ml Inj SUB-Q 7.5 mg QDAY SUSU Administration Hydromorphone HCl 0.5 mg 09/30/21 13:14 10/01/21 15:55 Hydromorphone 0.5 Mg/0.5 Ml Inj IV 0.5 mg Q3H PRN Administration Pain , Severe (7-10) Isosorbide Dinitrate 10 mg 10/01/21 22:00 10/09/21 22:06 Isosorbide Dinitrate 10 Mg Tab PO Not Given BID [facility] Metoprolol Tartrate 25 mg 10/01/21 22:00 10/09/21 22:07 Metoprolol Tartrate 25 Mg Tab PO Not Given BID [facility] Morphine Sulfate 2 mg 09/30/21 13:14 10/01/21 03:35 Morphine 2 Mg/1 Ml Inj IV 2 mg Q4H PRN Administration Pain, Moderate (4-6) Ondansetron HCl 4 mg 09/30/21 13:14 Ondansetron 4 Mg/2 Ml Inj IV Q8H PRN Nausea And Vomiting Pantoprazole Sodium 40 mg 10/02/21 07:30 10/10/21 07:16 Pantoprazole 40 Mg Tab PO Not Given QDAC [facility] Ranolazine 500 mg 10/01/21 22:00 10/09/21 23:06 Ranolazine Er 500 Mg Tab 12hr PO 500 mg BID [facility] Administration Venlafaxine HCl 37.5 mg 10/02/21 10:00 10/09/21 11:32 Venlafaxine 37.5 Mg Tab PO 37.5 mg QDAY SUSU Administration Vitamin E 200 unit 10/01/21 12:00 10/09/21 11:34 Tocopherol 200 Unit Cap PO 200 unit QDAY [facility] Administration Warfarin Sodium 10 mg 10/10/21 17:00 Warfarin 10 Mg Tab PO 10/11/21 16:59 DAILY@1700 NR Warfarin Sodium 2.5 mg 10/10/21 17:00 Warfarin 2.5 Mg Tab PO 10/11/21 16:59 DAILY@1700 NR Zolpidem Tartrate 5 mg 10/09/21 22:48 10/09/21 23:06 Zolpidem 5 Mg Tab PO 5 mg QHS PRN Administration Sleep
[2021-10-10] MEDS: ASPIRIN EC 81 MG TAB PO SCH (10:25)
[2021-10-10] MEDS: FERROUS SULFATE 325 MG TAB PO SCH (10:25)
[2021-10-10] MEDS: ASCORBIC ACID 500 MG TAB PO SCH (10:25)
[2021-10-10] MEDS: TOCOPHEROL 200 UNIT CAP PO SCH (10:25)
[2021-10-10] MEDS: VENLAFAXINE 37.5 MG TAB PO SCH (10:25)
[2021-10-10] MEDS: FOLIC ACID 1 MG TAB PO SCH (10:26)
[2021-10-10] MEDS: METOPROLOL TARTRATE 25 MG TAB PO SCH (10:26)
[2021-10-10] MEDS: ISOSORBIDE DINITRATE 10 MG TAB PO SCH (10:26)
[2021-10-10] MEDS: RANOLAZINE ER 500 MG TAB 12HR PO SCH (10:26)
[2021-10-10] MEDS: CLOPIDOGREL 75 MG TAB PO SCH (10:26)
[2021-10-10] MEDS: FONDAPARINUX 7.5 MG/0.6 ML INJ SUB-Q SCH (10:27)
[2021-10-10] MEDS ORDERED: WARFARIN 10 MG TAB ONE (10:33)
[2021-10-10] MEDS ORDERED: WARFARIN 2.5 MG TAB ONE (10:33)
[2021-10-10] MEDS ORDERED: WARFARIN 10 MG TAB PO NR (17:00)
[2021-10-10] MEDS ORDERED: WARFARIN 2.5 MG TAB PO NR (17:00)
[2021-10-10 17:43] LABS: INR 2.69 (0.87-1.13)
--- NOTE | 2021-10-10 17:55 | Discharge Summary ---
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 Left leg now well perfused. Patient finally with therapeutic INR. Disposition: HOME / SELF CARE / HOMELESS Final Discharge Diagnosis (Prints w/discharge instructions): Acute arterial occlusion Core Measure Documentation - Palliative Care Palliative Care/ Comfort Measures: Not Applicable - Core Measures Any of the following diagnoses?: none Exam - Constitutional Vitals: Temp Pulse Resp BP Pulse Ox 97.6 F 61 18 110/61 99 10/10/21 04:32 10/10/21 10:00 10/10/21 04:32 10/10/21 04:32 10/10/21 10:00 General appearance: Present: no acute distress - EENT Eyes: Present: EOM intact ENT: hearing intact - Neck Neck: Present: supple, normal ROM - Respiratory Respiratory effort: normal - Extremities Extremities: abnormal (right BKA) - Abdominal General gastrointestinal: Present: deferred Male genitourinary: Present: deferred - Psychiatric Psychiatric: appropriate mood/affect, cooperative Plan Activity: advance as tolerated Weight Bearing Status: Weight Bear as Tolerated Diet: regular Wound: keep clean and dry Follow up with: KASHIF CLEANING MD [Primary Care Provider] - 7 Days Forms: Warfarin Discharge Instruction Prescriptions: Warfarin [Coumadin] 10 mg PO QDAY #30 tablet Warfarin [Coumadin] 2.5 mg PO QDAY #30 tablet Ferrous Sulfate [Feosol 325 MG tab] 325 mg PO QDAY 90 Days #90 tablet oxyCODONE /ACETAMINOPHEN [Percocet 5/325] 1 tab PO Q6HR PRN #30 tablet PRN Reason: Pain
== END 2021-10-10 18:32 | disposition home or self-care (01) | DRG 271 ==
LOC: CATHLABREC 12:43 → CC1 13:15 → 4A 10-03 21:32
PROVIDERS: ADMIT Radiology Diagnostic Radiology; ATTEND Surgery Vascular Surgery
PROC: 04CL3ZZ Extirpation of Matter from Left Femoral Artery, Percutaneous Approach (ICD-10-PCS; principal; 2021-09-30)
PROC: 047U341 Dilation of Left Peroneal Artery with Drug-eluting Intraluminal Device, using Drug-Coated Balloon, Percutaneous Approach (ICD-10-PCS; 2021-09-30)
PROC: 04FL3Z0 Fragmentation of Left Femoral Artery, Percutaneous Approach, Ultrasonic (ICD-10-PCS; 2021-09-30)
PROC: 047Q3Z1 Dilation of Left Anterior Tibial Artery using Drug-Coated Balloon, Percutaneous Approach (ICD-10-PCS; 2021-09-30)
PROC: 047S3Z1 Dilation of Left Posterior Tibial Artery using Drug-Coated Balloon, Percutaneous Approach (ICD-10-PCS; 2021-09-30)
DX: I70.222 Atherosclerosis of native arteries of extremities with rest pain, left leg (principal); D68.59 Other primary thrombophilia; T88.6XXA Anaphylactic reaction due to adverse effect of correct drug or medicament properly administered, initial encounter; T45.4X5A Adverse effect of iron and its compounds, initial encounter; D50.9 Iron deficiency anemia, unspecified; E78.5 Hyperlipidemia, unspecified; I10 Essential (primary) hypertension; I77.1 Stricture of artery; Z82.49 Family history of ischemic heart disease and other diseases of the circulatory system; Z88.8 Allergy status to other drugs, medicaments and biological substances; D69.6 Thrombocytopenia, unspecified
CPT/HCPCS: 34201; 36415; 37211; 37214; 37230; 37232; 71270; 74178; 80048; 80053; 82728; 82962; 83550; 83615; 85025; 85027; 85045; 85384; 85520; 85610; 85730; 86022; 86147; 86880; 99406; G0378; J3490; C1725; C1757; C1760; C1769; C1874; C1887; C1894; C2623; J0583; J0883; J1170; J1652; J2250; J2270; J2916; J2920; J2997; J3010; J7030; J7040; J7050; Q9967